=== PATIENT | female | born 2005 | race Two or more races ===

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

== ENCOUNTER 2023-12-29 01:33 | Emergency (ER) | payer MEDICAID, SELFPAY ==
[2023-12-29 01:36] VITALS: BP 111/67; PULSE 70; RESP 16; TEMP 36.6; O2SAT 100
[2023-12-29 02:12] LABS: Basophils Percent Auto 0.4 % (0.2-1.2); Eosinophils Absolute Auto 0.1 K/mm3 (0-0.3); Eosinophils Percent Auto 0.6 % (0-4.4); Hematocrit 35.8 % (37.0-47.0); Hemoglobin 11.8 g/dL (12.0-15.0); Immature Granulocyte Absolute 0.02 K/mm3 (0.00-0.031); Immature Granulocyte Percent A 0.2 % (0-0.5); Lymphocytes Absolute Auto 1.79 K/mm3 (0.9-3.2); Lymphocytes Percent Auto 19.3 % (18.3-44.2); Mean Corpuscular Hemoglobin 27.1 pg (26-34); Mean Corpuscular Volume 82.3 fl (80-100); Mean Platelet Volume 9.3 fl (7.4-10.4); Monocytes Absolute Auto 0.5 K/mm3 (0.1-0.6); Monocytes Percent Auto 4.9 % (2.6-8.5); Neutrophils Absolute Auto 6.9 K/mm3 (1.3-6.7); Neutrophils Percent Auto 74.6 % (45.5-73.1); Platelet Count Result 344 k/mm3 (150-375); Red Blood Count 4.35 M/mm3 (4.2-5.4); Red Cell Distribution Width 13.2 % (11.5-14.5); White Blood Count 9.3 K/mm3 (4.5-10.0)
[2023-12-29 02:22] LABS: Alanine Aminotransferase 16 U/L (6-35); Albumin Level 4.1 g/dL (3.5-5.1); Alkaline Phosphatase 62 U/L (38-126); Anion Gap 6 mmol/L (4-12); Aspartate Amino Transferase 24 U/L (14-36); Bilirubin,Total 0.3 mg/dL (0.2-1.3); Blood Urea Nitrogen 7 mg/dL (7-17); Calcium 9.1 mg/dL (8.4-10.2); Carbon Dioxide 24 mmol/L (22-30); Chloride 109 mmol/L (98-107); Estimated CRCL calculation 111 ml/min; Estimated Glomerular Filt Rate > 60; Glucose 91 mg/dL (65-110); Potassium 4.1 mmol/L (3.4-5.0); Sodium 139 mmol/L (137-145)
--- NOTE | 2023-12-29 02:44 | ED.PREGNANCY ---
HPI - General Chief complaint: Vaginal Bleeding Stated complaint: 4-5 weeks preg, vag bleeding Time Seen by Provider: 12/29/23 01:35 History of Present Illness HPI Narrative: Patient who is at 5 weeks confirmed IUP on ultrasound presenting with vaginal bleeding, she had intermittent spotting earlier during have resolved, then today had a small amount of bleeding with a small clot, which has also now resolved. No abdominal or pelvic pain. No discharge or dysuria Related Data Allergies Allergy/AdvReac Type Severity Reaction Status Date / Time No Known Allergies Allergy Mild Unverified 12/29/23 01:39 Review of Systems Review of Systems: All systems reviewed & are unremarkable except as noted in HPI and below PMFSH Past Medical History Medical History (Updated 12/29/23 @ 02:46 by Aida Walker MD) Chronic otitis media Surgical History Surgical History (Updated 04/22/21 @ 22:14 by Veronica Cody NP) No history of previous surgery Family History Family History (Updated 04/22/21 @ 22:15 by Veronica Cody NP) Other No significant family history Social History Social History (Updated 04/22/21 @ 22:11 by Veronica Cody NP) Smoking status: Never smoker Alcohol intake: never Substance use: never Living arrangements: with family Gender identity (if verbalized by the patient): Female Exam Narrative: EXAMINATION OF ORGAN SYSTEMS/BODY AREAS: Constitutional: Vital signs per nursing GENERAL:[No acute distress, non-toxic appearing.] HEAD: Normal with no signs of head trauma. EYES: EOMI, conjunctiva normal ENT: Hearing grossly intact LUNGS: Nonlabored breathing. 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 Closed cervix; no significant blood in vault or significant discharge. EXT: Normal range of motion SKIN: [No rashes or lesions.] NEURO: [Alert and oriented x 3. No gross focal sensory or strength deficits.] PSYCH: Normal affect Course Vital Signs Vital signs: Vital Signs Temperature 98 F 12/29/23 01:36 Pulse Rate 70 12/29/23 01:36 Respiratory Rate 16 12/29/23 01:36 Blood Pressure 111/67 12/29/23 01:36 Pulse Oximetry 100 12/29/23 01:36 Oxygen Delivery Room Air 12/29/23 01:36 Temperature 98 F 12/29/23 01:36 Pulse Rate 70 12/29/23 01:36 Respiratory Rate 16 12/29/23 01:36 Blood Pressure 111/67 12/29/23 01:36 Pulse Oximetry 100 12/29/23 01:36 Oxygen Delivery Room Air 12/29/23 01:36 MDM - OB/Uterine Contractions MDM Narrative Medical decision making narrative: Patient presents here vaginal bleeding/spotting in 1st trimester. She is otherwise well-appearing here, no abdominal pain and no tenderness on exam here, no significant blood in vault. She had has confirmed IUP still have low concern for ectopic. I suspect threatened miscarriage. Tendon strain obtained, basic blood work within acceptable limits, beta quant is 14,000. Information given to patient as well as the information to follow up OBGYN in the next 2 days for repeat beta quant, with return precautions. At time of discharge she is very well-appearing, ambulating normally. Lab Data 12/29/23 02:07 12/29/23 02:07 Labs: Lab Results 12/29/23 Range/Units 02:07 WBC 9.3 (4.5-10.0) K/mm3 RBC 4.35 (4.2-5.4) M/mm3 Hgb 11.8 L (12.0-15.0) g/dL Hct 35.8 L (37.0-47.0) % MCV 82.3 (80-100) fl MCH 27.1 (26-34) pg MCHC 33.0 (32-36) g/dl RDW 13.2 (11.5-14.5) % Plt Count 344 (150-375) k/mm3 MPV 9.3 (7.4-10.4) fl Immature Gran % (Auto) 0.2 (0-0.5) % Neut % (Auto) 74.6 H (45.5-73.1) % Lymph % (Auto) 19.3 (18.3-44.2) % [place] % (Auto) 4.9 (2.6-8.5) % Eos % (Auto) 0.6 (0-4.4) % Baso % (Auto) 0.4 (0.2-1.2) % Lymph # (Auto) 1.79 (0.9-3.2) K/mm3 [place] # (Auto) 0.5 (0.1-0.6) K/mm3 Eos # (Auto) 0.1 (0-0.3) K/mm3 Bas
== END 2023-12-29 03:05 | disposition home or self-care (01) ==
PROVIDERS: Emergency Provider Emergency Medicine
DX: O20.0 Threatened abortion (principal); Z3A.01 Less than 8 weeks gestation of pregnancy
CPT/HCPCS: 36415; 80053; 81025; 84702; 85025; 86850; 86900; 86901; 99284

== ENCOUNTER 2024-01-04 20:36 | Emergency (ER) | payer MEDICAID, SELFPAY ==
[2024-01-04 20:41] VITALS: BP 125/68; PULSE 78; RESP 18; TEMP 37.2; O2SAT 100
[2024-01-04] MEDS: SODIUM CHLORIDE 0.9% IV 1,000 ML 999 ML IV CONT (21:57)
[2024-01-04 22:00] LABS: Basophils Percent Auto 0.4 % (0.2-1.2); Eosinophils Absolute Auto 0.2 K/mm3 (0-0.3); Eosinophils Percent Auto 2.4 % (0-4.4); Hematocrit 39.6 % (37.0-47.0); Immature Granulocyte Absolute 0.03 K/mm3 (0.00-0.031); Immature Granulocyte Percent A 0.3 % (0-0.5); Lymphocytes Absolute Auto 2.06 K/mm3 (0.9-3.2); Lymphocytes Percent Auto 20.3 % (18.3-44.2); Mean Corpuscular HGB Conc 32.8 g/dl (32-36); Mean Corpuscular Hemoglobin 27.1 pg (26-34); Mean Corpuscular Volume 82.7 fl (80-100); Mean Platelet Volume 9.6 fl (7.4-10.4); Monocytes Absolute Auto 0.6 K/mm3 (0.1-0.6); Neutrophils Absolute Auto 7.2 K/mm3 (1.3-6.7); Neutrophils Percent Auto 70.6 % (45.5-73.1); Platelet Count Result 359 k/mm3 (150-375); Red Blood Count 4.79 M/mm3 (4.2-5.4); Red Cell Distribution Width 13.4 % (11.5-14.5); White Blood Count 10.1 K/mm3 (4.5-10.0)
[2024-01-04 22:10] LABS: Alanine Aminotransferase 20 U/L (6-35); Albumin Level 4.8 g/dL (3.5-5.1); Alkaline Phosphatase 73 U/L (38-126); Anion Gap 10 mmol/L (4-12); Aspartate Amino Transferase 25 U/L (14-36); Bilirubin,Total 0.4 mg/dL (0.2-1.3); Blood Urea Nitrogen 7 mg/dL (7-17); Calcium 9.5 mg/dL (8.4-10.2); Carbon Dioxide 21 mmol/L (22-30); Chloride 111 mmol/L (98-107); Estimated CRCL calculation 128 ml/min; Estimated Glomerular Filt Rate > 60; Glucose 84 mg/dL (65-110); Potassium 3.9 mmol/L (3.4-5.0); Sodium 142 mmol/L (137-145)
--- NOTE | 2024-01-04 22:13 | PC.NURSE ---
edp dr. sandhu performed bedside ultrasound and noted gestational sac. rn relief charge made aware.
--- NOTE | 2024-01-04 22:39 | PC.NURSE ---
Pt passed one large clot at this time. per edp dr. sandhu, blood clot not sent down to lab for further evaluation.
[2024-01-04 22:40] VITALS: BP 124/76; PULSE 86; RESP 12; O2SAT 100
--- NOTE | 2024-01-04 22:54 | ED.GENADULT ---
HPI - General Adult General Chief complaint: Vaginal Bleeding Stated complaint: vaginal bleeding Time Seen by Provider: 01/04/24 21:15 History of Present Illness HPI narrative: patient is a 18-year-old female who presents emergency department with chief complaint of possible miscarriage patient reports that she has been seen by OBGYN and was scheduled for an ultrasound on the to evaluate if she has had a change the patient reports that she has had some spotting and today she went through 3 [employer] liners patient reports that she has had some moderately heavy blood and clots the patient reports she has some cramping in her back Related Data Home Medications Medication Instructions Recorded Confirmed vits no.126-ferrous fum tablet PO 01/01/24 01/01/24 28 mg iron-folic acid 800 mcg tablet (Classic ) Allergies Allergy/AdvReac Type Severity Reaction Status Date / Time No Known Allergies Allergy Mild Verified 01/01/24 15:15 Review of Systems Review of Systems: A 10 system review of systems was completed on the patient and is negative except for what is stated in the HPI. Nursing and ancillary documentation was reviewed. COUNTS INCLUDE 234 BEDS AT THE [facility] Past Medical History Medical History Chronic otitis media Threatened Surgical History Surgical History No history of previous surgery Family History Family History Other No significant family history Social History Social History Smoking status: Never smoker Second hand tobacco smoke exposure: No Alcohol intake: never Substance use: never Substance use type: does not use Do You Feel Safe in your Home?: Yes Lack of Transportation: No Lack of Food: Often True Current Housing: I Have Housing Concerned About Future Housing: YES Difficulty Paying Gas/Electric Bills: YES Difficulty Paying for Meds: No Currently Unemployed: No Education: High School Diploma/GED Difficulty w/ Childcare or Family Care: No Living arrangements: with family Additional living arrangements comments: lives with boyfriend and mother 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 HEAD: Normocephalic, atraumatic. EYES: PERRLA and EOMI. ENT: Nares clear, no rhinorrhea or epistaxis. Mucous membranes moist. NECK: Supple. CHEST: Clear to auscultation. No respiratory distress. HEART: Regular rate and rhythm. No murmur heard. Normal peripheral pulses. ABDOMEN: Soft, nontender, nondistended, normal active bowel sounds. : Pelvic exam was performed with public health administrator there were moderate amount of clots in the vaginal vault were cleared using Bovie swabs. Cervix was closed EXTREMITIES: Normal range of motion. No edema. SKIN: Warm, dry, no rash. NEURO: No focal deficits. Alert and oriented x3. PSYCH: Normal mood and affect. Course Vital Signs Vital signs: Vital Signs Temperature 37.2 C 01/04/24 20:41 Pulse Rate 78 01/04/24 20:41 Respiratory Rate 18 01/04/24 20:41 Blood Pressure 125/68 01/04/24 20:41 Pulse Oximetry 100 01/04/24 20:41 Oxygen Delivery Room Air 01/04/24 20:41 Temperature 37.2 C 01/04/24 20:41 Pulse Rate 86 01/04/24 22:40 Respiratory Rate 12 01/04/24 22:40 Blood Pressure 124/76 01/04/24 22:40 Pulse Oximetry 100 01/04/24 22:40 Oxygen Delivery Room Air 01/04/24 20:41 Medical Decision Making [facility] [place] Narrative Medical decision making narrative: differential diagnosis includes
[2024-01-05 00:02] LABS: Bacteria Urine None Seen /hpf; Need Manual Microscopic Reviewed; Non Pathogenic Casts 0-2; RBC Urine >100 /hpf (0-2); Squamous Epithelial Cell Urine None Seen /hpf (Few); WBC Urine 0-5 /hpf (0-3)
[2024-01-05 00:03] LABS: Appearance Urine Cloudy (Clear); Bilirubin Urine Negative (Negative); Blood Urine 3+ (Negative); Color Urine Red (Yellow); Glucose Urine UA Negative (Negative); Ketones Urine Negative (Negative); Leukocyte Esterase Ur Trace LEU/UL (Negative); Nitrate Urine Negative (Negative); Protein Urine 1+ mg/dL (Negative); Specific Grav Ur 1.013 (1.001-1.035); pH Urine 6.5 (5.0-9.0)
[2024-01-05 00:05] LABS: Add Urine Microscopic? YES
[2024-01-05] MEDS: ACETAMINOPHEN 500 MG TABLET 1000 MG PO (00:30)
== END 2024-01-05 00:36 | disposition home or self-care (01) ==
PROVIDERS: Emergency Provider Emergency Medicine
DX: O20.0 Threatened abortion (principal); Z3A.00 Weeks of gestation of pregnancy not specified
CPT/HCPCS: 36415; 80053; 81001; 84702; 85025; 96360; 96361; 99283; A9270; J7030

== ENCOUNTER 2024-01-08 14:27 | Outpatient (CLI) | payer MEDICAID, SELFPAY ==
--- NOTE | ~2024-01-08 | US_ITS ---
EXAMINATION: US OB transvaginal DATE: 01/08/2024 15:06 INDICATION: Vaginal bleeding TECHNIQUE: Real-time transvaginal obstetric ultrasound. FINDINGS: No prior studies for comparison. The uterus measures 7.4 x 5.2 x 4.9 cm. There appears to be a gestational sac with a pole in th e cervix. No heart motions detected. No visible yolk sac. Ovaries are within normal limits. No free fluid in the pelvis. IMPRESSION: 1. Small gestational sac with pole in the cervix, suspicious for incomplete . No heart motions detected. Recommend follow-up with serial quantitative beta-hCG levels and ultrasound a s clinically indicated. Reviewed, dictated and finalized at location B. IMPRESSION: 1. Small gestational sac with pole in the cervix, suspicious for incomple te . No heart motions detected. Recommend follow-up with serial q uantitative beta-hCG levels and ultrasound as clinically indicated.
== END 2024-01-08 14:28 ==
LOC: MICIMG 14:28
PROVIDERS: PCP Nurse Practitioner; Visit Provider Nurse Practitioner
DX: O20.0 Threatened abortion (principal); Z3A.00 Weeks of gestation of pregnancy not specified
CPT/HCPCS: 76817

== ENCOUNTER 2025-01-17 16:51 | Emergency (ER) | payer SELFPAY ==
[2025-01-17] VITALS (7 sets, daily range): BP systolic 101–114; BP diastolic 71–87; PULSE 77–95; RESP 20; TEMP 36.3–36.6; O2SAT 99–100
--- OUTSIDE RECORDS SUMMARY | 2025-01-17 16:53 | XMS_ITS | CONTINUITY OF CARE DOCUMENT ---
Author Name niraj healy Address Unknown Organization [facility] Address [address] [place] [address] Phone [phone] Care Team Providers Care Ticket Dispenser Changer Name Role Phone Vinayak Khan MD Unavailable [phone] Vinayak Khan MD Unavailable INSURANCE PROVIDERS Payer name Policy type / Coverage type [place] [employer] party ID [id number] MEDICAID (2) Medicaid [id number]
--- OUTSIDE RECORDS SUMMARY | 2025-01-17 16:53 | XMS_ITS | Data Portability ---
Author Organization [facility] , [facility] Address [address] [place] [address] Care Team Providers Care Marketing Traffic Manager Name Role Phone [facility] Machine Engraver Assessment No assessment recorded. Plan of Treatment Reminders Order Date Submit Date Provider Last Modified By Organization Details Last Modified Time Details Appointments None recorded. Lab test, urine 2023 [id number] [facility], [address] [place], [address], 15:10:29 Referral None recorded. Procedures None recorded. Surgeries None recorded. Imaging US, transvagina l 2023 024 STARR Not available 05:23:37 Medication Orders None recorded. Patient TargetsNo targets recorded. Patient Instructions Encounter Date Encounter Id Patient Instructions Last Modified By Organization Details Last Modified Time 12/27/2023 [id number] Emergency Symptoms During the First Trimester Any of these symptoms should be evaluated immediately Don't wait for your visit to talk about it. Call the office or go to the hospital right away if you experience: - Severe pain or intense cramps low in the abdomen - Severe bleeding, with or without pain - Discharge from the vagina that contains tissue - Dizziness or fainting - A fever of more than 100.4 or more degrees Fahrenheit and/or chills [id number] Not available 12/27/2023 15:16:43 Reason for Referral None Reported. Results Created Date Observation Date Name Description Value Unit Range Abnormal Flag Note LastModifiedBy Organization Detail LastModifiedTime 12/27/19 24 12/27/2023 pregn rachel test, urine HCG positi ve Not Available [facility] [address] [facility] [place], [address], 12/27/2023 10:04:51 12/29/19 24 12/27/2023 US, trans vagin al No observ ation record ed. [place] [address], [place], [address], 12/29/2023 11:14:14 Result Notes None recorded. Medical Equipment None Reported. Allergies No known drug allergies Medications Name Sig Start Date Stop Date Status Note LastModified by Organization Details LastModified Time metronidazol e 500 mg tablet TAKE 1 TABLET BY MOUTH TWICE A DAY 12/26 completed Not Available Not Available Not Available amoxicillin 875 mg-potassium clavulanate 125 mg tablet TAKE 1 TABLET BY MOUTH TWICE DAILY 12/26 completed Not Available Not Available Not Available neomycin-naman ymyxin-hydro yobani 3.5 mg-10,000 unit/mL-1 % ear drops,susp INSTILL 1 DROP INTO THE LEFT EAR EVERY 3 HOURS WHILE AWAKE 12/26 completed Not Available Not Available Not Available Vitals Date Recorded Body mass index (BMI) Body mass index (BMI) [Percentile] Per age and sex Body height Provider Name and Address Organization Details Last Updated DateTime 12/27/2023 24.6 kg/m2 75 % 172.72 cm Craig Orona [employer] [facility] 12/27/2023 15:01:00 Date Recorded Body weight Body temperature Systolic blood pressure Diastolic blood pressure Provider Name and Address Organization Details Last Updated DateTime 12/27/2023 15589.25 g 98.4 [degF] 130 mm[Hg] 62 mm[Hg] Mckenna Weber [employer] [facility] 14:42:17 Social History Question Answer Notes LastModified by Organizat ion Details LastModified Time Tobacco Smoking Status Never Smoker Mckenna torres [employer] [facility] 12/27/2023 14:45:18 If You Are , What Was Your Level Of Alcohol Consumption Prior To ? Occasional Information not available 12/27/2023 Are You Blind Or Do You Have Difficulty Seeing? No Information not available 12/27/2023 Are You Deaf Or Do You Have Serious Difficulty Hearing? No Information not available 12/27/2023 What Type Of Diet Are You Following? REGULAR Information not available 12/27/2023 How Many Children Do You Have? 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 Unknown Information not available 12/27/2023 Are You Sexually Active? Yes Information not available 12/27/2023 Sex: Unknown Functional Status Question Answer Note LastModified by Organizat ion Details LastModified Time Do you use any illicit or recreational drugs? No Information not available 12/27/2023 Are you currently employed? Yes Information not available 12/27/2023 What is your exercise level? Occasional Information not available 12/27/2023 Mental Status None recorded. Family History Nothing Reported. Medical History Condition Response ADD/ADHD Y Gynecological History Statement/Question Response Flow Heavy Date of LMP 10/05/2023 Frequency of Cycle (Q days) 31 Duration of Flow (days) 7 Current Control Method Age at Menarche Not sure Obstetrics History GPAL:G 0 P 0 0 1 0 Type Value Spontaneous 1 Past Encounters Encounter ID Performer Location Encounter Start Date Encounter Closed Date Diagnosis/Indication Diagnosis SNOMED-CT Code Diagnosis ICD10 Code Diagnosis Note [id number] Giulia Alcocer CNM [facility] [address] [place] [address] 12/27/2023 14:31:23 12/27/2023 15:29:03 detection examination 60149032 Z32.00 US findings discussed w/pt and SO. GS AND YS ONLY repeat for viability in 14 days.SAB precaution s discussed Health Concerns Section Related Observation LastModified by Organization Detai ls LastModified Time None Recorded Concern Status LastModified by Organization Details LastModified Time None Recorded Advance Directives Directive None Recorded Payers Insurance Date Sequence Insurance Name Policy Number Policy Arana Covered Member ID Arana Member ID Guarantor Name 01/07/2024 1 [place] [facility] [employer] Janak Bautista [id number] Janak Bautista Notes Date Note Type Note Provider Name and Address Organization Details Recorded Time 12/27/2023 text/html Janak is here for confirmation with u/spatient LMP 4Patient states she is taking prenantal vitaminspatient has no concerns at this time Giulia Alcocer, CN [address], [place], [address], [facility] 12/27/2023 15:17:25 OBGyn Episode Ob Episode Information Episode Created Date Number of Fetuses Patient Bloodtype Patient rh Status Prepregnancy Weight lbs Domestic Partner Domestic Partner Phone Father Name Geological Sample Tester Status 12/27/19 24 1 CLOSED Fetus Data First Name Last Name Admitted to NICU Weight (g) Sex Living Outcome Pediatric Complications Fetus ID Race Codes Race Delivery Type , Spontane ous [id number] Gabe Calculation Initial Gabe Date Initial Exam Date Initial Exam Provider Initial Ultrasound Date Last Menstrual Period Date Ultra Sound Weeks Gestation 0 Eighteen To Twenty Week Gabe Update Ultra Sound Date Fundal Height At Umbil Quickening Date Ultra Sound Latest Weeks Gestation Final Gabe Confirmed By Final Gabe Confirmed Date Final Gabe Date Ultra Sound Latest Days Gestation 0 0 Menstrual History Last Menstrual Date Menses Monthly On Bcp Conception Prior Menses Frequency Hcg Plus Date Menarche Onset Age Delivery Information Delivery Date Delivery Type Labor Anesthesia Weeks Gestation Incision Type Labor Labor Length Hrs Delivered By Post Complications Tubal Sterilization Discharge Date Comments 9 Discharge Information Feeding Method Contraceptive Method Maternal HG B and HCT Levels
--- OUTSIDE RECORDS SUMMARY | 2025-01-17 16:53 | XMS_ITS | Data Portability ---
Author Organization [facility] Address [address] [place] [address] Assessment No assessment recorded. Plan of Treatment Reminders Order Date Submit Date Provider Last Modified By Organization Details Last Modified Time Details Appointments None recorded. Lab HIV 1 + 2, meaningful use set [address] [facility], [address] [place] [address], [facility] [address], [place], [address], 5 09:11:41 RPR (rapid plasma reagin), serum [address] [facility], [address] [place] [address], [address], [place], [address], 5 09:11:40 HBsAg (hepatitis B surface Ag), EIA, serum [address] [facility], [address] [place] [address], [address], [place], [address], 5 09:11:39 Hepatitis C IgG Ab, qual, serum [address] [facility], [address] [place] [address], [address], [place], [address], 5 09:11:38 vaginal pathogens panel, ROZ+probe, vaginal fluid [address] [facility], [address] [place] [address], [address], [place], [address], 06:14:39 Referral None recorded. Procedures None recorded. Surgeries None recorded. Imaging None recorded. Medication Orders None recorded. Patient TargetsNo targets recorded. Patient Instructions Encounter Date Encounter Id Patient Instructions Last Modified By Organization Details Last Modified Time 12/26/2024 [id number] I was present in the clinic to discuss this patient at the time of the visit. I agree with the documented assessment and plan MD tia Laboy Not available 12/26/2024 09:51:36 Reason for Referral None Reported. Results Created Date Observation Date Name Description Value Unit Range Abnormal Flag Note LastModifiedBy Organization Detail LastModifiedTime 12/27/1912/27/2024 INTER PRETA TION: interpretati on: Commen t Not infec mercy with HCV unles s early or acute infec tion is suspe cted (whic h may be delay ed in an immun ocomp romis ed indiv idual ), or other evide nce exist s to indic ate HCV infec tion. Not Available [facility] ([facility]) [address] [facility], [place], [address], 12/27/2024 09:11:37 12/27/1912/27/2024 HCV ANTIB MARQUEZ RFX TO QUANT PCR HCV Ab NON REACTI VE nonrea ctive Not Available [facility] ([facility]) [address] [place], [address], 12/27/2024 09:11:38 12/27/1912/27/2024 HBSAG SCREE N HBsAg screen NEGATI VE negati ve Not Available [facility] ([facility]) [address] [place], [address], 12/27/2024 09:11:39 12/27/1912/27/2024 RPR, RFX QN RPR/C ONFIR M TP RPR NON REACTI VE nonrea ctive Not Available [facility] ([facility]) [address] [place], [address], 12/27/2024 09:11:40 12/27/1912/27/2024 HIV AB/P2 4 AG WITH REFLE X HIV Ab/P24 Ag screen NON REACTI VE nonrea ctive HIV-1 /HIV- 2 antib odies and HIV-1 p24 antig en were NOT detec mercy. There is no labor atory evide nce of HIV infec tion. HIV Negat sky Not Available [facility] ([facility]) [address] [facility], [place], [address], 12/27/2024 09:11:41 12/27/1912/28/2024 NUSWA B VAGIN ITIS PLUS (VG+) atopobium vaginae HIGH - 2 score abnormal Not Available [facility] ([facility]) [address] [facility], [place], [address], 12/31/2024 06:14:39 12/27/1912/28/2024 NUSWA B VAGIN ITIS PLUS (VG+) bvab 2 HIGH - 2 score abnormal Not Available [facility] ([facility]) [address] [facility], [place], [address], 12/31/2024 06:14:39 12/27/1912/28/2024 NUSWA B VAGIN ITIS PLUS (VG+) megasphaera 1 HIGH - 2 score abnormal Calcu late total score by shilo joseph the 3 indiv idual bacte rial vagin osis (BV) marke r score s toget her. Total score is inter prete d as follo ws: Total score 0-1: Indic ates the absen ce of BV. Total score 2: Indet ermin ate for BV. Addit ional clini [place]ville data shoul d be evalu ated to estab mayte a diagn osis. Total score 3-6: Indic ates the prese nce of BV. Not Available [facility] ([facility]) [address] [facility], [place], [address], 12/31/2024 06:14:39 12/27/19 25 12/28/2024 NUA B VAGIN ITIS PLUS (VG+) hua albicans, ROZ NEGATI VE negati ve Not Available [facility] ([facility]) [address] [place], [address], 12/31/2024 06:14:39 12/27/1912/28/2024 NUSWA B VAGIN ITIS PLUS (VG+) hua glabrata, ROZ NEGATI VE negati ve Not Available [facility] ([facility]) [address] [place], [address], 12/31/2024 06:14:39 12/27/1912/30/2024 NUA B VAGIN ITIS PLUS (VG+) trich vag by ROZ NEGATI VE negati ve Not Available [facility] ([facility]) [address] [place], [address], 12/31/2024 06:14:39 12/27/1912/30/2024 NUA B VAGIN ITIS PLUS (VG+) chlamydia trachomatis, ROZ NEGATI VE negati ve Not Available [facility] ([facility]) [address] [place], [address], 12/31/2024 06:14:39 12/27/1912/30/2024 NUA B VAGIN ITIS PLUS (VG+) neisseria gonorrhoeae, ROZ NEGATI VE negati ve Not Available [facility] ([facility]) [address] [place], [address], 12/31/2024 06:14:39 Result Notes None recorded. Problems Name Problem SNOMED Code Status Onset Date Resolution Date Notes Provider Name and Address Organization Details Recorded Time Bacterial vaginosis 720327591 Active 025 Vernon Brady MD Attn: Jemal g,[address] [facility], [place], [address] , [facility] 15:23:42 Problem Notes None recorded. Medical Equipment None Reported. Allergies No known drug allergies Medications Name Sig Start Date Stop Date Status Note LastModified by Organization Details LastModified Time metronidazole 500 mg tablet Take 1 tablet twice a day by oral route for 7 days. 01/14 completed Not Available Not Available Not Available Vitals Date Recorded Body height Body mass index (BMI) Body weight Body temperature Respiratory rate Oxygen saturation Oxygen saturation in Arterial blood by Pulse oximetry Heart rate Systolic blood pressure Diastolic blood pressure Provider Name and Address Organization Details Last Updated DateTime 172.72 cm 21.7 kg/m2 22136.7 1 g 98.2 [degF] 16 /min 99 % 99 % 82 /min 125 mm[Hg] 85 mm[Hg] Ting Gallardo MA [facility] 09:30:53 Social History Question Answer Notes LastModified by [employer] Details LastModified Time Tobacco Smoking Status Never Smoker [facility] 12/26/2024 09:29:24 What Was The Date Of Your Most Recent Tobacco Screening? 12/26/2024 Information not available 12/26/2024 What Is Your Relationship Status? Single Information not available 12/26/2024 Are You Sexually Active? Yes Information not available 12/26/2024 Has Tobacco Cessation Counseling Been Provided? No Information not available 12/26/2024 Sex: Female Functional Status Question Answer Note LastModified by [employer] Details LastModified Time Do you use any illicit or recreational drugs? No Information not available 12/26/2024 Do you or have you ever used any other forms of tobacco or nicotine? Yes Information not available 12/26/2024 What is your level of alcohol consumption? None Information not available 12/26/2024 Do you or have you ever used e-cigarettes or vape? Current user of electronic cigarettes Information not available 12/26/2024 Mental Status None recorded. Family History Nothing Reported. Medical History No medical history recorded. Gynecological HistoryNo gynecological history recorded. Obstetrics History GPAL:G 0 P 0 0 0 0 Immunizations Vaccine Type Date Status Note Provider Nam e and Address Organization Details Recorded Time Hep B, adolescent or pediatric 3 completed Not Available [facility] 12/26/2024 09:15:42 Hep B, adolescent or pediatric 3 completed Not Available [facility] 12/26/2024 09:15:42 DTaP 3 completed Not Available [facility] 12/26/2024 09:15:42 IPV 3 completed Not Available [facility] 12/26/2024 09:15:42 pneumococcal conjugate PCV 7 3 completed Not Available [facility] 12/26/2024 09:15:42 Hib, unspecified formulation 3 completed Not Available [facility] 12/26/2024 09:15:42 DTaP 4 completed Not Available [facility] 12/26/2024 09:15:42 IPV 4 completed Not Available [facility] 12/26/2024 09:15:42 pneumococcal conjugate PCV 7 4 completed Not Available [facility] 12/26/2024 09:15:42 Hib, unspecified formulation 4 completed Not Available [facility] 12/26/2024 09:15:42 Hib, unspecified formulation 4 completed Not Available [facility] 12/26/2024 09:15:42 DTaP 4 completed Not Available [facility] 12/26/2024 09:15:42 Hep B, adolescent or pediatric 4 completed Not Available [facility] 12/26/2024 09:15:42 varicella 4 completed Not Available [facility] 12/26/2024 09:15:42 pneumococcal conjugate PCV 7 4 completed Not Available [facility] 12/26/2024 09:15:42 MMR 4 completed Not Available [facility] 12/26/2024 09:15:42 Hib, unspecified formulation 5 completed Not Available [facility] 12/26/2024 09:15:42 DTaP 5 completed Not Available [facility] 12/26/2024 09:15:42 IPV 5 completed Not Available [facility] 12/26/2024 09:15:42 MMR 8 completed Not Available [facility] 12/26/2024 09:15:42 IPV 8 completed Not Available [facility] 12/26/2024 09:15:42 varicella 8 completed Not Available [facility] 12/26/2024 09:15:42 DTaP 8 completed Not Available [facility] 12/26/2024 09:15:42 Hep A, pediatric, unspecified formulation 1 completed Not Available [facility] 12/26/2024 09:15:42 Influenza, live, trivalent, intranasal 1 completed Not Available [facility] 12/26/2024 09:15:42 Influenza, split virus, quadrivalent, PF 4 completed Not Available [facility] 12/26/2024 09:15:42 Hep A, ped/adol, 2 dose 4 completed Not Available [facility] 12/26/2024 09:15:42 Tdap 4 completed Not Available [facility] 12/26/2024 09:15:42 meningococcal MCV4P 5 completed Not Available [facility] 12/26/2024 09:15:42 HPV9 5 completed Not Available [facility] 12/26/2024 09:15:42 Influenza, live, quadrivalent, intranasal 5 completed Not Available [facility] 12/26/2024 09:15:42 HPV9 5 completed Not Available [facility] 12/26/2024 09:15:42 HPV9 6 completed Not Available [facility] 12/26/2024 09:15:42 Meningococcal MCV4O 9 completed Not Available [facility] 12/26/2024 09:15:42 meningococcal B, OMV 9 completed Not Available [facility] 12/26/2024 09:15:42 meningococcal B, OMV 1 completed Not Available [facility] 12/26/2024 09:15:42 Past Encounters Encounter ID Performer Location Encounter Start Date Encounter Closed Date Diagnosis/Indication Diagnosis SNOMED-CT Code Diagnosis ICD10 Code Diagnosis Note [id number] MD Paul Andino 14 IM [address] [facility] [address] [place] [address] 12/26/2024 09:12:15 12/30/2024 11:33:04 Exposure to Treponema pallidum 555540209 Z20.2 exposure 5 days ago to syphillisa symptomati cwill test for all STIscannot empiricall y treat given no penicillin in office; referred to [facility] for penicillin injection Health Concerns Section Related Observation LastModified by Organization Detai ls LastModified Time None Recorded Concern Status LastModified by Organization Details LastModified Time None Recorded Advance Directives Directive None Recorded Payers Insurance Date Sequence Insurance Name Policy Number Policy Arana Covered Member ID Arana Member ID Guarantor Name 12/26/2024 1 [facility] ON OR AFTER 02/03/21 (MEDICAID REPLACEMENT - HMO) Janak Bautista [id number] Janak Bautista 12/26/2024 SLIDING FEE SCHEDULE - DISCOUNT Janak Bautista 12/26/2024 1 *SELF PAY* Cr ana laura Bautista Notes Date Note Type Note Provider Name and Address Organization Details Recorded Time 12/26/2024 text/html 19 yo female presenting for STI walk in She was told 3 days ago that she was exposed to syphillis from a sexual 5 days agoShe had unprotected sex on that ocassiondenies dysuria, frequency, urgency, or abnormal bleedingshe notes inc vaginal discharge without change in colour or smelldenies lumps, bumps, or lesions Carole Nails MD Attn: [address] [place], [address], [facility] 12/26/2024 11:52:36 OBGyn Episode No OBEpisode recorded.
--- OUTSIDE RECORDS SUMMARY | 2025-01-17 17:12 | XMS_ITS | CONTINUITY OF CARE DOCUMENT ---
Author Name niraj healy Address Unknown Organization [facility] Address [address] [place] [address] Phone [phone] Care Team Providers Care Beef Breaker Name Role Phone Vinayak Khan MD Unavailable Vinayak Khan MD Unavailable INSURANCE PROVIDERS Payer name Policy type / Coverage type [place] [employer] [place] [id number] MEDICAID (2) Medicaid [id number]
[2025-01-17 17:27] LABS: Basophils Absolute Auto 0.1 K/mm3 (0.0-0.1); Basophils Percent Auto 0.5 % (0.2-1.2); Eosinophils Percent Auto 0.3 % (0-4.4); Hematocrit 39.9 % (37.0-47.0); Hemoglobin 13.1 g/dL (12.0-15.0); Immature Granulocyte Absolute 0.03 K/mm3 (0.00-0.031); Immature Granulocyte Percent A 0.3 % (0-0.5); Lymphocytes Absolute Auto 2.01 K/mm3 (0.9-3.2); Mean Corpuscular HGB Conc 32.8 g/dl (32-36); Mean Corpuscular Hemoglobin 27.4 pg (26-34); Mean Corpuscular Volume 83.5 fl (80-100); Mean Platelet Volume 9.4 fl (7.4-10.4); Monocytes Absolute Auto 0.4 K/mm3 (0.1-0.6); Monocytes Percent Auto 4.5 % (2.6-8.5); Neutrophils Percent Auto 73.4 % (45.5-73.1); Platelet Count Result 374 k/mm3 (150-375); Red Blood Count 4.78 M/mm3 (4.2-5.4); Red Cell Distribution Width 13.2 % (11.5-14.5); White Blood Count 9.6 K/mm3 (4.5-10.0)
--- NOTE | 2025-01-17 17:33 | ED_ITS ---
HPI - General Chief complaint: Vaginal Bleeding Stated complaint: 5 weeks -vaginal bleeding Time Seen by Provider: 01/17/25 16:53 Source: patient Mode of arrival: ambulatory Limitations: no limitations History of Present Illness HPI Narrative: This is a 19-year-old female that presents to the emergency department for vaginal bleeding in early . Reports her LMP was 12/05/24. Reports she has had spotting for the last week. Bleeding became more heavy since yesterday. She has not had an US yet this . Related Data Home Medications ?Medication ?Instructions ?Recorded ?Confirmed ?Last Taken ?Type vits no.126-ferrous fum tablet PO 01/01/24 01/01/24 Unknown History 28 mg iron-folic acid 800 mcg tablet (Classic ) Allergies Allergy/AdvReac Type Severity Reaction Status Date / Time No Known Allergies Allergy Mild Verified 01/17/25 16:56 Review of Systems 2 Review of Systems: All systems reviewed & are unremarkable except as noted in HPI and below PMFSH Past Medical History Medical History Chronic otitis media Threatened Surgical History Surgical History No history of previous surgery Family History Family History Other No significant family history Social History Social History Smoking status: Never smoker Second hand tobacco smoke exposure: No Alcohol intake: never Substance use: never Substance use type: does not use Do You Feel Safe in your Home?: Yes Lack of Transportation: No Lack of Food: Often True Current Housing: I Have Housing Concerned About Future Housing: YES Difficulty Paying Gas/Electric Bills: YES Difficulty Paying for Meds: No Currently Unemployed: No Education: High School Diploma/GED Difficulty w/ Childcare or Family Care: No Living arrangements: with family Additional living arrangements comments: lives with boyfriend and mother 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 HEAD: Normocephalic, atraumatic. EYES: EOMI. CHEST: Clear to auscultation. No respiratory distress. No wheezes rales or rhonchi HEART: Regular rate and rhythm. No murmur heard. Normal peripheral pulses. ABDOMEN: Soft, nontender, nondistended, normal active bowel sounds. EXTREMITIES: Normal range of motion. No edema. SKIN: Warm, dry, no rash. NEURO: No focal deficits. Alert and oriented x3. PSYCH: Normal mood and affect Course Course Emergency Course: patient updated on her workup and agrees with plan of care Vital Signs Vital signs: Vital Signs Temperature 97.3 F L 01/17/25 16:57 Pulse Rate 89 01/17/25 16:57 Respiratory Rate 20 01/17/25 16:57 Blood Pressure 113/76 01/17/25 16:57 Pulse Oximetry 100 01/17/25 16:57 Oxygen Delivery Room Air 01/17/25 16:57 Temperature 97.3 F L 01/17/25 16:57 Pulse Rate 86 01/17/25 18:00 Respiratory Rate 20 01/17/25 18:00 Blood Pressure 110/87 01/17/25 18:00 Pulse Oximetry 100 01/17/25 18:00 Oxygen Delivery Room Air 01/17/25 16:57 MDM - OB/Uterine Contractions MDM Narrative Medical decision making narrative: Patient presents the emergency department for bleeding in early . She is afebrile and nontoxic appearing. Her vitals are stable. Hemoglobin is normal. Blood type is A positive. Quantitative beta-hCG is 46.5. Will be given order for repeat beta HCG. Instructed continued monitoring with her OB. She was given warnings to return to the ER Differential Diagnosis Differential diagnosis: Likely other (threatened miscarriage, miscarriage) Lab Data Attestation: I reviewed the patient's lab results. 01/17/25 17:15 01/17/25 17:15 Labs: Lab Results 01/17/25 Range/Units 17:15 WBC 9.6 (4.5-10.0) K/mm3 RBC 4.78 (4.2-5.4) M/mm3 Hgb 13.1 (12.0-15.0) g/dL Hct 39.9 (37.0-47.0) % MCV 83.5 (80-100) fl MCH 27.4 (26-34) pg MCHC 32.8 (32-36) g/dl RDW 13.2 (11.5-14.5) % Plt Count 374 (150-375) k/mm3 MPV 9.4 (7.4-10.4) fl Immature Gran % (Auto) 0.3 (0-0.5) % Neut % (Auto) 73.4 H (45.5-73.1) % Lymph % (Auto) 21.0 (18.3-44.2) % Ulster % (Auto) 4.5 (2.6-8.5) % Eos % (Auto) 0.3 (0-4.4) % Baso % (Auto) 0.5 (0.2-1.2) % Lymph # (Auto) 2.01 (0.9-3.2) K/mm3 Ulster # (Auto) 0.4 (0.1-0.6) K/mm3 Eos # (Auto) 0.0 (0-0.3) K/mm3 Baso # (Auto) 0.1 (0.0-0.1) K/mm3 Abs Immat Gran (auto) 0.03 (0.00-0.031) K/mm3 Absolute Neuts (auto) 7.0 H (1.3-6.7) K/mm3 Absolute Nucleated RBC 0.000 (0.0-0.012) K/mm3 Nucleated RBC % 0.0 (0.0-0.2) % PT 13.1 (11.1-14.7) Seconds INR 1.0 APTT 24.8 (22.3-36.8) Seconds Sodium 141 (137-145) mmol/L Potassium 3.8 (3.4-5.0) mmol/L Chloride 108 H (98-107) mmol/L Carbon Dioxide 23 (22-30) mmol/L Anion Gap 10 (4-12) mmol/L BUN 9 (7-17) mg/dL Creatinine 0.67 L (0.7-1.0) mg/dL Estim Creat Clear Calc 115 ml/min Estimated GFR > 60 (59 - ) Glucose 84 (65-110) mg/dL Calcium 9.5 (8.4-10.2) mg/dL Total Bilirubin 0.4 (0.2-1.3) mg/dL AST 28 (14-36) U/L ALT 19 (6-35) U/L Alkaline Phosphatase 68 (38-126) U/L Total Protein 8.3 H (6.3-8.2) g/dL Albumin 4.8 (3.5-5.1) g/dL Beta HCG, Quant 46.50 mIU/ML Blood Type A Positive Antibody Screen Negative Screen Not Reportable Baby's Blood Type Not Reportable Baby's JULIO Not Reportable Doses of RhIg Required 0 Critical Care Time Critical Care Time Critical Care Time: No Discharge Plan Discharge Clinical Impression: Threatened miscarriage Patient Disposition: Home Condition: Stable Instructions: Threatened Miscarriage (ED) Additional Instructions: Return to the ER if you experience fever, chest pain, shortness of breath, abdominal pain with nausea and vomiting, you are unable to keep down liquids or solids, you are soaking through a pad/hour, or any other symptoms that are concerning to you Remain well hydrated. Pelvic rest, no tampons or sex. I have sent an order electronically for you to have your hormone rechecked in 2 days (Sunday) at a lab of your choice Follow up with your OB Patient Language: Rwandan Prescriptions: No Action Classic 28 mg iron- 800 mcg tablet PO Follow-up/Referrals: PHYSICIAN,RELOCATION COMMISSIONER [Primary Care Provider] -
[2025-01-17 17:39] LABS: Alanine Aminotransferase 19 U/L (6-35); Albumin Level 4.8 g/dL (3.5-5.1); Alkaline Phosphatase 68 U/L (38-126); Anion Gap 10 mmol/L (4-12); Aspartate Amino Transferase 28 U/L (14-36); Bilirubin,Total 0.4 mg/dL (0.2-1.3); Blood Urea Nitrogen 9 mg/dL (7-17); Calcium 9.5 mg/dL (8.4-10.2); Carbon Dioxide 23 mmol/L (22-30); Chloride 108 mmol/L (98-107); Estimated CRCL calculation 115 ml/min; Estimated Glomerular Filt Rate > 60; Glucose 84 mg/dL (65-110); Potassium 3.8 mmol/L (3.4-5.0); Sodium 141 mmol/L (137-145); Total Protein 8.3 g/dL (6.3-8.2)
[2025-01-17 17:41] LABS: Prothrombin Time 13.1 Seconds (11.1-14.7)
[2025-01-17 17:42] LABS: Partial Thromboplastin Time 24.8 Seconds (22.3-36.8)
== END 2025-01-17 18:41 | disposition home or self-care (01) ==
PROVIDERS: Emergency Provider Physician Assistant
DX: O20.0 Threatened abortion (principal); Z3A.01 Less than 8 weeks gestation of pregnancy
CPT/HCPCS: 36415; 80053; 84702; 85025; 85461; 85610; 85730; 86850; 86900; 86901; 99284

== ENCOUNTER 2025-01-19 14:26 | Emergency (ER) | payer SELFPAY ==
[2025-01-19 14:32] VITALS: BP 106/76; PULSE 75; RESP 18; TEMP 36.3; O2SAT 100
--- OUTSIDE RECORDS SUMMARY | 2025-01-19 15:34 | XMS_ITS | Data Portability ---
Author Organization [facility] MARGARITOVero [facility] Address [address] [place] [address] Assessment No assessment recorded. Plan of Treatment Reminders Order Date Submit Date Provider Last Modified By Organization Details Last Modified Time Details Appointments None recorded. Lab HIV 1 + 2, meaningful use set 2024 025 [facility], [address] [place] [address], [facility] [address], [place], [address], 5 09:11:41 RPR (rapid plasma reagin), serum 2024 025 [facility], [address] [place] [address], [address], [place], [address], 5 09:11:40 HBsAg (hepatitis B surface Ag), EIA, serum 2024 025 [facility], [address] [place] [address], [address], [place], [address], 5 09:11:39 Hepatitis C IgG Ab, qual, serum 2024 025 [facility], [address] [place] [address], [address], [place], [address], 5 09:11:38 vaginal pathogens panel, ROZ+probe, vaginal fluid 2024 025 [facility], [address] [place] [address], [address], [place], [address], 06:14:39 Referral None recorded. Procedures None recorded. Surgeries None recorded. Imaging None recorded. Medication Orders None recorded. Patient TargetsNo targets recorded. Patient Instructions Encounter Date Encounter Id Patient Instructions Last Modified By Organization Details Last Modified Time 12/26/2024 [id number] I was present in the clinic to [...] ate HCV infec tion. Not Available [facility] ([facility]) [address] [facility], [place], [address], 12/27/2024 09:11:37 12/27/1912/27/2024 HCV ANTIB MARQUEZ RFX TO QUANT PCR HCV Ab NON REACTI VE nonrea ctive Not Available [facility] ([facility]) [address] [place], [address], 12/27/2024 09:11:38 12/27/1912/27/2024 HBSAG SCREE N HBsAg screen NEGATI VE negati ve Not Available [facility] ([facility]) [address] [place], [address], 12/27/2024 09:11:39 12/27/1912/27/2024 RPR, RFX QN RPR/C ONFIR M TP RPR NON REACTI VE nonrea ctive Not Available [facility] ([facility]) [address] [place], [address], 12/27/2024 09:11:40 12/27/1912/27/2024 HIV AB/P2 4 AG WITH REFLE X HIV Ab/P24 Ag screen NON REACTI VE nonrea ctive HIV-1 /HIV- 2 antib odies and HIV-1 p24 antig en were NOT detec mercy. There is no labor atory evide nce of HIV infec tion. HIV Negat sky Not Available [facility] ([facility]) [address] [facility], [place], [address], 12/27/2024 09:11:41 12/27/1912/28/2024 NUSWA B VAGIN ITIS PLUS (VG+) atopobium vaginae HIGH - 2 score abnormal Not Available [facility] ([facility]) [address] [facility], [place], [address], 12/31/2024 06:14:39 12/27/1912/28/2024 NUSWA B VAGIN ITIS PLUS (VG+) bvab 2 HIGH - 2 score abnormal Not Available [facility] ([facility]) [address] [facility], [place], [address], 12/31/2024 06:14:39 12/27/1912/28/2024 NUSWA B VAGIN ITIS [...] prese nce of BV. Not Available [facility] ([facility]) [address] [facility], [place], [address], 12/31/2024 06:14:39 12/27/19 25 12/28/2024 NUA B VAGIN ITIS PLUS (VG+) hua albicans, ROZ NEGATI VE negati ve Not Available [facility] ([facility]) [address] [place], [address], 12/31/2024 06:14:39 12/27/1912/28/2024 NUSWA B VAGIN ITIS PLUS (VG+) hua glabrata, ROZ NEGATI VE negati ve Not Available [facility] ([facility]) [address] [place], [address], 12/31/2024 06:14:39 12/27/1912/30/2024 NUA B VAGIN ITIS PLUS (VG+) trich vag by ROZ NEGATI VE negati ve Not Available [facility] ([facility]) [address] [place], [address], 12/31/2024 06:14:39 12/27/1912/30/2024 NUA B VAGIN ITIS PLUS (VG+) chlamydia trachomatis, ROZ NEGATI VE negati ve Not Available [facility] ([facility]) [address] [place], [address], 12/31/2024 06:14:39 12/27/1912/30/2024 NUA B VAGIN ITIS PLUS (VG+) neisseria gonorrhoeae, ROZ NEGATI VE negati ve Not Available [facility] ([facility]) [address] [place], [address], 12/31/2024 06:14:39 Result Notes None recorded. Problems Name Problem SNOMED Code Status Onset Date Resolution Date Notes Provider Name and Address Organization Details Recorded Time Bacterial vaginosis 684271567 Active 025 Vernon Brady MD Attn: Jemal g,[address] [facility], [place], [address] , [facility] 15:23:42 Problem Notes None recorded. Medical Equipment [...] Last Updated DateTime 172.72 cm 21.7 kg/m2 12951.7 1 g 98.2 [degF] 16 /min 99 % 99 % 82 /min 125 mm[Hg] 85 mm[Hg] Ting Gallardo MA [facility] 09:30:53 Social History Question Answer Notes LastModified by Catmoji Details LastModified Time Tobacco Smoking Status Never Smoker [facility]ardo [facility] 12/26/2024 09:29:24 What Was The Date Of Your Most Recent Tobacco Screening? 12/26/2024 Information not available 12/26/2024 What Is Your Relationship Status? Single Information not available 12/26/2024 Are You Sexually Active? Yes Information not available 12/26/2024 Has Tobacco Cessation Counseling Been Provided? No Information not available 12/26/2024 Sex: Female Functional Status Question Answer Note LastModified by Catmoji Details LastModified Time Do you use any [...] adolescent or pediatric 3 completed Not Available [facility] 12/26/2024 09:15:42 Hep B, adolescent or pediatric 3 completed Not Available [facility] 12/26/2024 09:15:42 DTaP 3 completed Not Available [facility] 12/26/2024 09:15:42 IPV 3 completed Not Available [facility] 12/26/2024 09:15:42 pneumococcal conjugate PCV 7 3 completed Not Available [facility] 12/26/2024 09:15:42 Hib, unspecified formulation 3 completed Not Available [facility] 12/26/2024 09:15:42 DTaP 4 completed Not Available [facility] 12/26/2024 09:15:42 IPV 4 completed Not Available [facility] 12/26/2024 09:15:42 pneumococcal conjugate PCV 7 4 completed Not Available [facility] 12/26/2024 09:15:42 Hib, unspecified formulation 4 completed Not Available [facility] 12/26/2024 09:15:42 Hib, unspecified formulation 4 completed Not Available [facility] 12/26/2024 09:15:42 DTaP 4 completed Not Available [facility] 12/26/2024 09:15:42 Hep B, adolescent or pediatric 4 completed Not Available [facility] 12/26/2024 09:15:42 varicella 4 completed Not Available [facility] 12/26/2024 09:15:42 pneumococcal conjugate PCV 7 4 completed Not Available [facility] 12/26/2024 09:15:42 MMR 4 completed Not Available [facility] 12/26/2024 09:15:42 Hib, unspecified formulation 5 completed Not Available [facility] 12/26/2024 09:15:42 DTaP 5 completed Not Available [facility] 12/26/2024 09:15:42 IPV 5 completed Not Available [facility] 12/26/2024 09:15:42 MMR 8 completed Not Available [facility] 12/26/2024 09:15:42 IPV 8 completed Not Available [facility] 12/26/2024 09:15:42 varicella 8 completed Not Available [facility] 12/26/2024 09:15:42 DTaP 8 completed Not Available [facility] 12/26/2024 09:15:42 Hep A, pediatric, unspecified formulation 1 completed Not Available [facility] 12/26/2024 09:15:42 Influenza, live, trivalent, intranasal 1 completed Not Available [facility] 12/26/2024 09:15:42 Influenza, split virus, quadrivalent, PF 4 completed Not Available [facility] 12/26/2024 09:15:42 Hep A, ped/adol, 2 dose 4 completed Not Available [facility] 12/26/2024 09:15:42 Tdap 4 completed Not Available [facility] 12/26/2024 09:15:42 meningococcal MCV4P 5 completed Not Available [facility] 12/26/2024 09:15:42 HPV9 5 completed Not Available [facility] 12/26/2024 09:15:42 Influenza, live, quadrivalent, intranasal 5 completed Not Available [facility] 12/26/2024 09:15:42 HPV9 5 completed Not Available [facility] 12/26/2024 09:15:42 HPV9 6 completed Not Available [facility] 12/26/2024 09:15:42 Meningococcal MCV4O 9 completed Not Available [facility] 12/26/2024 09:15:42 meningococcal B, OMV 9 completed Not Available [facility] 12/26/2024 09:15:42 meningococcal B, OMV 1 completed Not Available [facility] 12/26/2024 09:15:42 Past Encounters Encounter ID Performer Location Encounter Start Date Encounter Closed Date Diagnosis/Indication Diagnosis SNOMED-CT Code Diagnosis ICD10 Code Diagnosis Note [id number] MD Paul Andino 14 IM [address] [facility] [address] [place] [address] 12/26/2024 09:12:15 12/30/2024 11:33:04 Exposure to Treponema pallidum 066271891 Z20.2 exposure 5 days ago to syphillisa symptomati cwill test for all STIscannot empiricall y treat given no penicillin in office; referred to [facility] for penicillin injection Health Concerns Section Related Observation LastModified by Organization Detai ls LastModified Time None Recorded Concern Status LastModified by Organization Details LastModified Time None Recorded Advance Directives Directive None Recorded Payers Insurance Date Sequence Insurance Name Policy Number Policy Arana Covered Member ID Arana Member ID Guarantor Name 12/26/2024 1 [facility] ON OR AFTER 02/03/21 (MEDICAID REPLACEMENT - HMO) Janak Bautista [id number] Janak Bautista 12/26/2024 SLIDING FEE SCHEDULE - [...] lesions Carole Nails MD Attn: Accounting[address] [place], [address], [facility] 12/26/2024 11:52:36 OBGyn Episode No OBEpisode recorded.
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
--- OUTSIDE RECORDS SUMMARY | 2025-01-19 15:34 | XMS_ITS | CONTINUITY OF CARE DOCUMENT ---
Author Name niraj healy Address Unknown Organization [facility] Address [address] [facility] [address] [place] [address] Phone [phone] Care Team Providers Care Hand Dry Cleaner Name Role Phone Vinayak Khan MD Unavailable [phone] Vinayak Khan MD Unavailable INSURANCE PROVIDERS Payer name Policy type / Coverage type [place] ID [id number] MEDICAID (2) Medicaid [id number]
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
== END 2025-01-19 18:00 | disposition left against medical advice (07) ==
DX: Z32.00 Encounter for pregnancy test, result unknown (principal)
CPT/HCPCS: 99199

== ENCOUNTER 2025-07-01 14:05 | Emergency (ER) | payer OTHER, SELFPAY ==
[2025-07-01 14:10] VITALS: BP 121/95; PULSE 100; RESP 20; TEMP 36.7; O2SAT 100
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
[2025-07-01] MEDS: ACETAMINOPHEN 325 MG TABLET 650 MG PO (14:43)
[2025-07-01 14:48] VITALS: BP 132/93; PULSE 104; RESP 16; O2SAT 100
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
== END 2025-07-01 14:49 | disposition home or self-care (01) ==
PROVIDERS: Emergency Provider Emergency Medicine
DX: O9A.212 Injury, poisoning and certain other consequences of external causes complicating pregnancy, second trimester (principal); S09.90XA Unspecified injury of head, initial encounter; S49.92XA Unspecified injury of left shoulder and upper arm, initial encounter; S49.91XA Unspecified injury of right shoulder and upper arm, initial encounter; R10.32 Left lower quadrant pain; Y04.2XXA Assault by strike against or bumped into by another person, initial encounter; Z3A.15 15 weeks gestation of pregnancy
CPT/HCPCS: 99282; A9270

== ENCOUNTER 2025-07-25 13:12 | Emergency (ER) | payer OTHER, SELFPAY ==
--- NOTE | ~2025-07-25 | US_ITS ---
EXAMINATION: Ultrasound uterus OB, Limited for date: DATE: 07/25/2025. INDICATION: 20-year-old , due date by LMP on 12/24/2024. TECHNIQUE: Limited ultrasound uterus for viability and dating. COMPARISON: None. FINDINGS: Single live fetus is noted in breech presentation. heart rate at 1 54 bpm. Amniotic fluid volume is normal. Anterior placenta is normal in location. Cervix measures 2.9 cm in length. Based on biometric measurements, ultrasound gestational age is 18 weeks 3 days +/- 10 days. The expected due date by ultrasound is 12/23/2025. IMPRESSION: 1. Single live fetus as mentioned above. Gestational age 18 weeks and 3 days +/- 10 days. Expected due date by ultrasound on 12/23/2025. 2. As mentioned above, this is a limited study. This is not for anatomic evaluation of fetus. Reviewed, dictated and finalized at location T. [employer] OF SE[employer]ETING IMPRESSION: 1. Single live fetus as mentioned above. Gestational age 18 weeks and 3 days +/ - 10 days. Expected due date by ultrasound on 12/23/2025. 2. As mentioned above, this is a limited study. This is not for anatomic evalua tion of fetus.
[2025-07-25 13:19] VITALS: BP 110/71; PULSE 110; RESP 20; TEMP 36.4; O2SAT 100
--- NOTE | 2025-07-25 13:30 | ECG_ITS ---
Test Date: 2025-07-25 13:51:52 Measurements Intervals Otto Rate: 92 P: 70 MI: 121 QRS: 70 QRSD: 94 T: 43 QT: 370 QTc: 460 Interpretive Statements SINUS RHYTHM INCOMPLETE RIGHT BUNDLE BRANCH BLOCK MINIMAL Q WAVES- INF/LAT LEADS BORDERLINE ST-T WAVE ABNORMALITY- ANTERIOR LEADS BORDERLINE ECG No previous ECG available for comparison Electronically Signed On 07-25-2025 17:26:53 INDUSTRIAL SWEEPER CLEANER by Jose Laurent D.O.
[2025-07-25 14:29] LABS: Cannabinoid Screen Urine Positive (Negative)
[2025-07-25 14:32] LABS: Add Urine Microscopic? YES; Appearance Urine Cloudy (Clear); Glucose Urine UA Negative (Negative); Leukocyte Esterase Ur Trace LEU/UL (Negative); Need Manual Microscopic Reviewed; Nitrate Urine Negative (Negative); Specific Grav Ur 1.023 (1.001-1.035)
[2025-07-25 14:40] LABS: Hematocrit 40.1 % (37.0-47.0); Hemoglobin 13.6 g/dL (12.0-15.0); Immature Granulocyte Percent A 0.4 % (0-0.5); Lymphocytes Absolute Auto 0.71 K/mm3 (0.9-3.2); Mean Corpuscular HGB Conc 33.9 g/dl (32-36); Mean Corpuscular Hemoglobin 28.2 pg (26-34); Mean Corpuscular Volume 83.2 fl (80-100); Nucleated Red Blood Cells Absolute Auto 0.000 K/mm3 (0.0-0.012); Nucleated Red Blood Cells Perc 0.0 % (0.0-0.2); Platelet Count Result 328 k/mm3 (150-375); Red Blood Count 4.82 M/mm3 (4.2-5.4); White Blood Count 8.1 K/mm3 (4.5-10.0)
[2025-07-25 14:44] LABS: SARS-CoV-2 RNA PCR Negative (Negative)
--- OUTSIDE RECORDS SUMMARY | 2025-07-25 14:52 | XMS_ITS | Continuity of Care Document ---
Author Organization Cyrus BARCLAY (NETWORK OPERATIONS MANAGER) Address [address] [place] [id number] Assessment No assessment recorded. Plan of Treatment Reminders Order Date Submit Date Provider Last Modified By Organization Details Last Modified Time Details Appointments None recorded . Lab pap, IG + reflex HPV if ASC-U 2024 025 [facility], [address] [address], [place], [address], 08:56:38 pregnanc y test, urine 2024 025 [email or web address] In-Office Order, Internal Use Only DO Not Attach Compendium DO Not Attach Compendium, Do Not Delete/merge, 13:11:39 urinalys is, dipstick 2024 025 In-Office Order, Internal Use Only DO Not Attach Compendium DO Not Attach Compendium, Do Not Delete/merge, 12:35:08 hemoglob in (Hb) electrop horesis, blood 2024 025 [facility], [address] [facility], [address], [place], [address], 20:10:41 vaginal pathogen s panel, ROZ+prob e, vaginal fluid 2024 025 [facility], [address], [address], [place], [address], 04:11:05 spinal muscular atrophy (sma) mutation s, blood/ti ssue 2024 [facility], [address], [place], [address], 20:10:45 CFTR mutation , blood or tissue 2024 [facility], [address], [place], [address], 20:10:44 panel 2024 [facility], [address] [facility], [facility] [address], [place], [address], 5 20:10:43 aneuploi dy risk and X & Y analysis , chromoso me specific circulat ing cell free (CCF) DNA, maternal serum 2024 [email or web address], [address] [facility], [facility] [address], [place], [address], 11:10:20 drug screen, urine 2024 025 [facility], [address] [facility], [facility] [address], [place], [address], 20:09:55 Referral behavior al health referral 2024 025 [email or web address] [facility] (), [address] [place], [address], 18:23:46 Procedures None recorded . Surgeries None recorded . Imaging US, obstetri c, 1st trimeste r 2024 025 [facility], [address], [place], [address], 11:14:47 Medication Orders None recorded . Patient TargetsNo targets recorded. Patient Instructions Encounter Date Encounter Id Patient Instructions Last Modified By Organization Details Last Modified Time 05/18/2025 [id number] edinburgh depression scale* Not available 05/19/2025 16:27:22 I personally examined the patient with the resident physician. I agree with the findings, assessment, and plan as documented. Cali Levine MD [email or web address] Not available 05/25/2025 13:10:06 Reason for Referral Behavioral Health Referral f or History of depression Referring Physician: Wilbur Enciso, Director Of Patient Financial Services, Encounter Date: 05/18/2025 Results Created Date Observation Date Name Description Value Unit Range Abnormal Flag Note LastModifiedBy Organization Detail LastModifiedTime 05/18/2005/18/2025 [id number] 2 9+OXY CODON E+GLASS GRINDER -SCR please note: COMMEN T This assay provi oksana a preli minar y uncon firme d re tical test resul t that may be suita ble for clini [place] manag ement of patie nts in certa in situa tions . Drug- test resul ts shoul d be inter prete d in the norma xt of clini [place] infor alice gonzalez. Patie nt metab olic varia bles, speci fic drug chemi stry, and speci men wolfgang cteri stics can affec t test outco me. Techn ical consu ltati on is avail able if a test resul t is incon siste nt with an expec mercy outco me. Email : clini caldr [email or web address] [email or web address] Phone : [phone] Not Available [facility] ([facility]) [address] [facility], [place], [address], 05/19/2025 20:09:55 05/18/2005/19/2025 [id number] 2 9+OXY CODON E+GLASS GRINDER -SCR amphetamines screen, urine NEGATI VE NG/mL cutoff =1000 Not Available [facility] ([facility]) [address] [facility], [place], [address], 05/19/2025:09:55 05/18/20 25 05/19/2025 [id number] 2 9+OXY CODON E+GLASS GRINDER -SCR barbiturates screen, urine NEGATI VE NG/mL cutoff =200 Not Available [facility] ([facility]) [address] [place], [address], 05/19/2025 20:09:55 05/18/2005/19/2025 [id number] 2 9+OXY CODON E+GLASS GRINDER -SCR benzodiazepi gladis screen, urine NEGATI VE NG/mL cutoff =200 Not Available [facility] ([facility]) [address] [place], [address], 05/19/2025 20:09:55 05/18/2005/19/2025 [id number] 2 9+OXY CODON E+GLASS GRINDER -SCR cannabinoid screen, urine POSITI VE NG/mL cutoff =20 abnormal Not Available [facility] ([facility]) [address] [place], [address], 05/19/2025 20:09:55 05/18/2005/19/2025 [id number] 2 9+OXY CODON E+GLASS GRINDER -SCR cocaine (metab.) screen, urine NEGATI VE NG/mL cutoff =300 Not Available [facility] ([facility]) [address] [place], [address], 05/19/2025 20:09:55 05/18/2005/19/2025 [id number] 2 9+OXY CODON E+GLASS GRINDER -SCR opiate screen, urine NEGATI VE NG/mL cutoff =300 Opiat e test inclu oksana Codei ne, Morph ine, Shawnee morph one, Shawnee codon e. Not Available [facility] ([facility]) [address] [place], [address], 05/19/2025 20:09:55 05/18/20 25 05/19/2025 [id number] 2 9+OXY CODON E+GLASS GRINDER -SCR oxycodone/ox ymorphone, urine NEGATI VE NG/mL cutoff =100 Test inclu oksana Oxyco done and Oxymo rphon e Not Available [facility] ([facility]) [address] [place], [address], 05/19/2025 20:09:55 05/18/2005/19/2025 [id number] 2 9+OXY CODON E+GLASS GRINDER -SCR phencyclidin e screen, urine NEGATI VE NG/mL cutoff =25 Not Available [facility] ([facility]) [address] [place], [address], 05/19/2025 20:09:55 05/18/2005/19/2025 [id number] 2 9+OXY CODON E+GLASS GRINDER -SCR methadone screen, urine NEGATI VE NG/mL cutoff =300 Not Available [facility] ([facility]) [address] [place], [address], 05/19/2025 20:09:55 05/18/2005/19/2025 [id number] 2 9+OXY CODON E+GLASS GRINDER -SCR propoxyphene screen, urine NEGATI VE NG/mL cutoff =300 Not Available [facility] ([facility]) [address] [place], [address], 05/19/2025 20:09:55 05/18/2005/19/2025 [id number] 2 9+OXY CODON E+GLASS GRINDER -SCR creatinine, urine 181.6 mg/dL 20.0-3 00.0 Not Available [facility] ([facility]) [address] [place], [address], 05/19/2025 20:09:55 05/18/2005/19/2025 [id number] 2 9+OXY CODON E+GLASS GRINDER -SCR pH, urine 5.3 4.5-8. 9 Not Available [facility] ([facility]) [address] [place], [address], 05/19/2025 20:09:55 05/18/2005/19/2025 NUA B VAGIN ITIS PLUS (VG+) atopobium vaginae MODERA TE - 1 score Not Available [facility] ([facility]) [address] [place], [address], 05/20/2025 04:11:05 05/18/2005/19/2025 NUSWA B VAGIN ITIS PLUS (VG+) bvab 2 LOW - 0 score Not Available [facility] ([facility]) [address] [facility], [place], [address], 05/20/2025 04:11:05 05/18/2005/19/2025 NUA B VAGIN ITIS PLUS (VG+) megasphaera 1 LOW - 0 score Calcu late total score by shilo joseph [...] prese nce of BV. Not Available [facility] ([facility]) [address] [facility], [place], [address], 05/20/2025 04:11:05 05/18/2005/19/2025 NUA B VAGIN ITIS PLUS (VG+) hua albicans, ROZ NEGATI VE negati ve Not Available [facility] ([facility]) [address] [place], [address], 05/20/2025 04:11:05 05/18/2005/19/2025 NUA B VAGIN ITIS PLUS (VG+) hua glabrata, ROZ NEGATI VE negati ve Not Available [facility] ([facility]) [address] [place], [address], 05/20/2025 04:11:05 05/18/2005/20/2025 NUSWA B VAGIN ITIS PLUS (VG+) trich vag by ROZ NEGATI VE negati ve Not Available [facility] ([facility]) [address] [place], [address], 05/20/2025 04:11:05 05/18/2005/20/2025 NUA B VAGIN ITIS PLUS (VG+) chlamydia trachomatis, ROZ POSITI VE negati ve abnormal Not Available [facility] ([facility]) [address] [place], [address], 05/20/2025 04:11:05 05/18/2005/20/2025 NUA B VAGIN ITIS PLUS (VG+) neisseria gonorrhoeae, ROZ NEGATI VE negati ve Not Available [facility] ([facility]) [address] [place], [address], 05/20/2025 04:11:05 05/18/2005/22/2025 IGP,R FX APT HPV ASCU, 16/18 ,45 diagnosis: COMMEN T NEGAT SHAGUFTA FOR INTRA EPITH ELIAL LESIO N OR SIN BELLA . Not Available [facility] ([facility]) [address] [place], [address], 05/22/2025 16:23:15 05/18/2005/22/2025 IGP,R FX APT HPV ASCU, 16/18 ,45 specimen adequacy: COMMEN T Satis facto ry for evalu ation . Endoc ervic al and/o r squam ous metap lasti c cells (endo cervi [place] compo nent) are prese nt. Not Available [facility] ([facility]) [address] [place], [address], 05/22/2025 16:23:15 05/18/2005/22/2025 IGP,R FX APT HPV ASCU, 16/18 ,45 clinician provided ICD10: FARIBA Bello Z34.9 1 Not Available [facility] ([facility]) [address] [place], [address], 05/22/2025 16:23:15 05/18/2005/22/2025 IGP,R FX APT HPV ASCU, 16/18 ,45 performed by: FARIBA burris, Cytol ogist (ASCP ) Not Available [facility] ([facility]) [address] [place], [address], 05/22/2025 16:23:15 05/18/2005/22/2025 IGP,R FX APT HPV ASCU, 16/18 ,45 . . Not Available [facility] ([facility]) [address] [place], [address], 05/22/2025 16:23:15 05/18/2005/22/2025 IGP,R FX APT HPV ASCU, 16/18 ,45 note: FARIBA Bello The Pap smear is a scree julito test desig salome to aid in the detec tion of zoila ligna nt and malig nant condi tions of the uteri ne cervi x. It is not a diagn ostic proce dure and shoul d not be used as the sole means of detec ting cervi [place] cance r. Both false -posi tive and false -nega tive repor ts do occur . Not Available [facility] ([facility]) [address] [place], [address], 05/22/2025 16:23:15 05/18/2005/22/2025 IGP,R FX APT HPV ASCU, 16/18 ,45 test methodology: FARIBA Bello This liqui d based ThinP rep(R ) pap test was inter prete d using the Holog ic(R) Geniu s(TM) Cervi or[place] Algor ithm whole slide imagi ng syste m. Not Available [facility] ([facility]) [address] [facility], [place], [address], 05/22/2025 16:23:15 05/18/2005/22/2025 IGP,R FX APT HPV ASCU, 16/18 ,45 . COMMEN T The HPV DNA refle x crite neeraj were not met with this speci men resul t there fore, no HPV testi ng was perfo rmed. Not Available [facility] ([facility]) [address] [facility], [place], [address], 05/22/2025 16:23:15 05/18/20 25 05/19/2025 HGB FRACT IONAT ION CASCA DE HGB F 1.7 % 0.0-2. 0 Not Available [facility] ([facility]) [address] [facility], [place], [address], 05/26/2025 20:10:41 05/18/20 25 05/19/2025 HGB FRACT IONAT ION CASCA DE HGB A 56.8 % 96.4-9 8.8 below low normal Not Available [facility] ([facility]) [address] [facility], [place], [address], 05/26/2025 20:10:41 05/18/20 25 05/19/2025 HGB FRACT IONAT ION CASCA DE HGB A2 2.8 % 1.8-3. 2 Not Available [facility] ([facility]) [address] [place], [address], 05/26/2025 20:10:41 05/18/20 25 05/19/2025 HGB FRACT IONAT ION CASCA DE HGB S 38.7 % 0.0 above high normal Not Available [facility] ([facility]) [address] [facility], [place], [address], 05/26/2025 20:10:41 05/18/20 25 05/19/2025 HGB FRACT IONAT ION CASCA DE interpretati on: COMMEN T Refle x to Hgb Solub ility indic ated for confi rmati on. Not Available [facility] ([facility]) [address] [facility], [place], [address], 05/26/2025 20:10:41 05/18/20 25 05/19/2025 HGB SOLUB ILITY HGB solubility Positi ve negati ve abnormal Not Available [facility] ([facility]) [address] [facility], [place], [address], 05/26/2025 20:10:42 05/18/20 25 05/19/2025 HGB SOLUB ILITY final interpretati on: Commen t Hemog antonieta florez rn and rik ntrat ions are consi stent with sickl e cell trait (hete rozyg ous). Sugge st clini [place] and hemat ologi c corre latio n. Sickl e Trait Inter preta tion Range s Hgb A 50.0 - 70.0% Hgb S 30.0 - 45.0% Hgb A2 1.8 - 4.0% Not Available [facility] ([facility]) [address] [facility], [place], [address], 05/26/2025 20:10:42 05/18/20 25 05/19/2025 INTER PRETA TION: interpretati on: Commen t Not infec mercy with HCV unles s early or acute infec tion is suspe cted (whic h may be delay ed in an immun ocomp romis ed indiv idual ), or other evide nce exist s to indic ate HCV infec tion. Not Available [facility] ([facility]) [address] [facility], [place], [address], 05/26/2025 20:10:43 05/18/2005/19/2025 PREGN JUAN MANUEL, INITI AL SCREE N HBsAg screen NEGATI VE negati ve Not Available [facility] ([facility]) [address] [facility], [place], [address], 05/26/2025 20:10:43 05/18/20 25 05/19/2025 PREGN JUAN MANUEL, INITI AL SCREE N HCV Ab NON REACTI VE nonrea ctive Not Available [facility] ([facility]) [address] [place], [address], 05/26/2025 20:10:43 05/18/20 25 05/19/2025 PREGN JUAN MANUEL, INITI AL SCREE N RPR NON REACTI VE nonrea ctive Not Available [facility] ([facility]) [address] [place], [address], 05/26/2025 20:10:43 05/18/2005/19/2025 PREGN JUAN MANUEL, INITI AL SCREE N rubella antibodies, IgG 11.00 index immune >0.99 Non-i mmune <0.90 Equiv ocal 0.90 - 0.99 Immun e >0.99 Not Available [facility] ([facility]) [address] [place], [address], 05/26/2025 20:10:43 05/18/20 25 05/19/2025 PREGN JUAN MANUEL, INITI AL SCREE N ABO grouping A Not Available [facility] ([facility]) [address] [place], [address], 05/26/2025 20:10:43 05/18/20 25 05/19/2025 PREGN JUAN MANUEL, INITI AL SCREE N Rh factor POSITI VE Pleas e note: Prior recor ds for this patie nt's ABO / Rh type are not avail able for addit ional verif icati on. Not Available [facility] ([facility]) [address] [place], [address], 05/26/2025 20:10:43 05/18/20 25 05/19/2025 PREGN JUAN MANUEL, INITI AL SCREE N antibody screen NEGATI VE negati ve Not Available [facility] ([facility]) [address] [place], [address], 05/26/2025 20:10:43 05/18/2005/19/2025 PREGN JUAN MANUEL, INITI AL SCREE N HIV Ab/P24 Ag screen NON REACTI VE nonrea ctive HIV-1 /HIV- 2 antib odies and HIV-1 p24 antig en were NOT detec mercy. There is no labor atory evide nce of HIV infec tion. HIV Negat shagufta Not Available [facility] ([facility]) [address] [facility], [place], [address], 05/26/2025 20:10:43 05/18/2005/19/2025 PREGN JUAN MANUEL, INITI AL SCREE N WBC 9.3 x10e3 /uL 3.4-10 .8 Not Available [facility] ([facility]) [address] [facility], [place], [address], 05/26/2025 20:10:43 05/18/20 25 05/19/2025 PREGN JUAN MANUEL, INITI AL SCREE N RBC 4.14 x10e6 /uL 3.77-5 .28 Not Available [facility] ([facility]) [address] [facility], [place], [address], 05/26/2025 20:10:43 05/18/20 25 05/19/2025 PREGN JUAN MANUEL, INITI AL SCREE N hemoglobin 11.1 g/dL 11.1-1 5.9 Not Available [facility] ([facility]) [address] [facility], [place], [address], 05/26/2025 20:10:43 05/18/2005/19/2025 PREGN JUAN MANUEL, INITI AL SCREE N hematocrit 35.8 % 34.0-4 6.6 Not Available [facility] ([facility]) [address] [place], [address], 05/26/2025 20:10:43 05/18/20 25 05/19/2025 PREGN JUAN MANUEL, INITI AL SCREE N MCV 87 fL 79-97 Not Available [facility] ([facility]) [address] [facility], [place], [address], 05/26/2025 20:10:43 05/18/2005/19/2025 PREGN JUAN MANUEL, INITI AL SCREE N MCH 26.8 pg 26.6-3 3.0 Not Available [facility] ([facility]) [address] [facility], [place], [address], 05/26/2025 20:10:43 05/18/2005/19/2025 PREGN JUAN MANUEL, INITI AL SCREE N MCHC 31.0 g/dL 31.5-3 5.7 below low normal Not Available [facility] ([facility]) [address] [facility], [place], [address], 05/26/2025 20:10:43 05/18/2005/19/2025 PREGN JUAN MANUEL, INITI AL SCREE N RDW 13.0 % 11.7-1 5.4 Not Available [facility] ([facility]) [address] [facility], [place], [address], 05/26/2025 20:10:43 05/18/20 25 05/19/2025 PREGN JUAN MANUEL, INITI AL SCREE N platelets 305 x10e3 /uL 150-45 0 Not Available [facility] ([facility]) [address] [facility], [place], [address], 05/26/2025 20:10:43 05/18/2005/19/2025 PREGN JUAN MANUEL, INITI AL SCREE N neutrophils 76 % notest ab. Not Available [facility] ([facility]) [address] [facility], [place], [address], 05/26/2025 20:10:43 05/18/20 25 05/19/2025 PREGN JUAN MANUEL, INITI AL SCREE N lymphs 19 % notest ab. Not Available [facility] ([facility]) [address] [facility], [place], [address], 05/26/2025 20:10:43 05/18/20 25 05/19/2025 PREGN JUAN MANUEL, INITI AL SCREE N monocytes 4 % notest ab. Not Available [facility] ([facility]) [address] [facility], [place], [address], 05/26/2025 20:10:43 05/18/20 25 05/19/2025 PREGN JUAN MANUEL, INITI AL SCREE N eos 1 % notest ab. Not Available [facility] ([facility]) [address] [facility], [place], [address], 05/26/2025 20:10:43 05/18/2005/19/2025 PREGN JUAN MANUEL, INITI AL SCREE N basos 0 % notest ab. Not Available [facility] ([facility]) [address] [facility], [place], [address], 05/26/2025 20:10:43 05/18/20 25 05/19/2025 PREGN JUAN MANUEL, INITI AL SCREE N neutrophils (absolute) 7.0 x10e3 /uL 1.4-7. 0 Not Available [facility] ([facility]) [address] [place], [address], 05/26/2025 20:10:43 05/18/20 25 05/19/2025 PREGN JUAN MANUEL, INITI AL SCREE N lymphs (absolute) 1.8 x10e3 /uL 0.7-3. 1 Not Available [facility] ([facility]) [address] [place], [address], 05/26/2025 20:10:43 05/18/20 25 05/19/2025 PREGN JUAN MANUEL, INITI AL SCREE N monocytes(ab solute) 0.4 x10e3 /uL 0.1-0. 9 Not Available [facility] ([facility]) [address] [place], [address], 05/26/2025 20:10:43 05/18/2005/19/2025 PREGN JUAN MANUEL, INITI AL SCREE N eos (absolute) 0.1 x10e3 /uL 0.0-0. 4 Not Available [facility] ([facility]) [address] [place], [address], 05/26/2025 20:10:43 05/18/2005/19/2025 PREGN JUAN MANUEL, INITI AL SCREE N baso (absolute) 0.0 x10e3 /uL 0.0-0. 2 Not Available [facility] ([facility]) [address] [place], [address], 05/26/2025 20:10:43 05/18/2005/19/2025 PREGN JUAN MANUEL, INITI AL SCREE N immature granulocytes 0 % notest ab. Not Available [facility] ([facility]) [address] [facility], [place], [address], 05/26/2025 20:10:43 05/18/2005/19/2025 PREGN JUAN MANUEL, INITI AL SCREE N immature grans (abs) 0.0 x10e3 /uL 0.0-0. 1 Not Available [facility] ([facility]) [address] [place], [address], 05/26/2025 20:10:43 05/18/2005/19/2025 PREGN JUAN MANUEL, INITI AL SCREE N specific gravity 1.021 1.005- 1.030 Not Available [facility] ([facility]) [address] [place], [address], 05/26/2025 20:10:43 05/18/2005/19/2025 PREGN JUAN MANUEL, INITI AL SCREE N pH 5.5 5.0-7. 5 Not Available [facility] ([facility]) [address] [place], [address], 05/26/2025 20:10:43 05/18/2005/1905/19/2025 PREGN JUAN MANUEL, INITI AL SCREE N urine-color YELLOW yellow Not Available [facility] ([facility]) [address] [place], [address], 05/26/2025 20:10:43 05/18/2005/19/2025 PREGN JUAN MANUEL, INITI AL SCREE N appearance CLEAR clear Not Available [facility] ([facility]) [address] [place], [address], 05/26/2025 20:10:43 05/18/2005/19/2025 PREGN JUAN MANUEL, INITI AL SCREE N WBC esterase NEGATI VE negati ve Not Available [facility] ([facility]) [address] [place], [address], 05/26/2025 20:10:43 05/18/2005/19/2025 PREGN JUAN MANUEL, INITI AL SCREE N protein NEGATI VE negati ve/tra ce Not Available [facility] ([facility]) [address] [place], [address], 05/26/2025 20:10:43 05/18/2005/19/2025 PREGN JUAN MANUEL, INITI AL SCREE N glucose NEGATI VE negati ve Not Available [facility] ([facility]) [address] [place], [address], 05/26/2025 20:10:43 05/18/2005/19/2025 PREGN JUAN MANUEL, INITI AL SCREE N ketones TRACE negati ve abnormal Not Available [facility] ([facility]) [address] [place], [address], 05/26/2025 20:10:43 05/18/20 25 05/19/2025 PREGN JUAN MANUEL, INITI AL SCREE N occult blood NEGATI VE negati ve Not Available [facility] ([facility]) [address] [place], [address], 05/26/2025 20:10:43 05/18/20 25 05/19/2025 PREGN JUAN MANUEL, INITI AL SCREE N bilirubin NEGATI VE negati ve Not Available [facility] ([facility]) [address] [facility], [place], [address], 05/26/2025 20:10:43 05/18/20 25 05/19/2025 PREGN JUAN MANUEL, INITI AL SCREE N urobilinogen ,semi-qn 0.2 mg/dL 0.2-1. 0 Not Available [facility] ([facility]) [address] [facility], [place], [address], 05/26/2025 20:10:43 05/18/20 25 05/19/2025 PREGN JUAN MANUEL, INITI AL SCREE N nitrite, urine NEGATI VE negati ve Not Available [facility] ([facility]) [address] [facility], [place], [address], 05/26/2025 20:10:43 05/18/20 25 05/19/2025 PREGN JUAN MANUEL, INITI AL SCREE N microscopic examination COMMEN T Micro scopi c follo ws if indic ated. Not Available [facility] ([facility]) [address] [facility], [place], [address], 05/26/2025 20:10:43 05/18/20 25 05/19/2025 PREGN JUAN MANUEL, INITI AL SCREE N microscopic examination SEE BELOW: Micro scopi c was indic ated and was perfo rmed. Not Available [facility] ([facility]) [address] [facility], [place], [address], 05/26/2025 20:10:43 05/18/20 25 05/20/2025 PREGN JUAN MANUEL, INITI AL SCREE N chlamydia trachomatis, ROZ POSITI VE negati ve abnormal Not Available [facility] ([facility]) [address] [place], [address], 05/26/2025 20:10:43 05/18/20 25 05/20/2025 PREGN JUAN MANUEL, INITI AL SCREE N neisseria gonorrhoeae, ROZ NEGATI VE negati ve Not Available [facility] ([facility]) [address] [facility], [place], [address], 05/26/2025 20:10:43 05/18/20 25 05/20/2025 PREGN JUAN MANUEL, INITI AL SCREE N urine culture,pren atal, w/gbs FINAL REPORT Not Available [facility] ([facility]) [address] [facility], [place], [address], 05/26/2025 20:10:43 05/18/2005/19/2025 MICRO SCOPI C EXAMI NATIO N WBC 0-5 /hpf 0-5 Not Available [facility] ([facility]) [address] [facility], [place], [id number], 05/26/2025 20:10:44 05/18/20 25 05/19/2025 MICRO SCOPI C EXAMI NATIO N RBC 0-2 /hpf 0-2 Not Available [facility] ([facility]) [address] [facility], [place], [id number], 05/26/2025 20:10:44 05/18/20 25 05/19/2025 MICRO SCOPI C EXAMI NATIO N epithelial cells (non renal) 0-10 /hpf 0-10 Not Available [facility] ([facility]) [address] [facility], [place], [id number], 05/26/2025 20:10:44 05/18/2005/19/2025 MICRO SCOPI C EXAMI NATIO N casts None seen /lpf nonese en Not Available [facility] ([facility]) [address] [facility], [place], [id number], 05/26/2025 20:10:44 05/18/20 25 05/19/2025 MICRO SCOPI C EXAMI NATIO N crystals Presen t n/a abnormal Not Available [facility] ([facility]) [address] [facility], [place], [address], 05/26/2025 20:10:44 05/18/2005/19/2025 MICRO SCOPI C EXAMI NATIO N crystal type Calciu m Oxalat e Not Available [facility] ([facility]) [address] [facility], [place], [address], 05/26/2025 20:10:44 05/18/2005/19/2025 MICRO SCOPI C EXAMI NATIO N mucus threads Presen t notest ab. Not Available [facility] ([facility]) [address] [facility], [place], [address], 05/26/2025 20:10:44 05/18/2005/19/2025 MICRO SCOPI C EXAMI NATIO N bacteria Few nonese en/few Not Available [facility] ([facility]) [address] [facility], [place], [address], 05/26/2025 20:10:44 05/18/2005/26/2025 CYSTI C FIBRO SIS, 97 VARIA NTS ethnicity COMMEN T Not Provi ded Not Available [facility] ([facility]) [address] [place], [address], 05/26/2025 20:10:44 05/18/2005/26/2025 CYSTI C FIBRO SIS, 97 VARIA NTS specimen type COMMEN T Whole Blood Not Available [facility] ([facility]) [address] [place], [address], 05/26/2025 20:10:44 05/18/2005/26/2025 CYSTI C FIBRO SIS, 97 VARIA NTS indication COMMEN T Tiffanie er Test / Scree julito Not Available [facility] ([facility]) [address] [place], [address], 05/26/2025 20:10:44 05/18/2005/26/2025 CYSTI C FIBRO SIS, 97 VARIA NTS result: COMMEN T NEGAT SHAGUFTA Not Available [facility] ([facility]) [address] [facility], [place], [address], 05/26/2025 20:10:44 05/18/20 25 05/26/2025 CYSTI C FIBRO SIS, 97 VARIA NTS interpretati on COMMEN T Negat shagufta Resul ts Disor ders (Gene ) Resul t Inter preta tion Cysti c fibro sis NEGAT SHAGUFTA This resul t reduc es, CFTR NM_00 0492. 4 but does not elimi sravan, the risk to be a tiffanie er. Risk: At reduc ed risk for an affec mercy pregn juan manuel. For ethni c-spe cific risk figueroa ions see Infor alice n Table . Not Available [facility] ([facility]) [address] [facility], [place], [address], 05/26/2025 20:10:44 05/18/2005/26/2025 CYSTI C FIBRO SIS, 97 VARIA NTS recommendati ons COMMEN T If the above resul t is posit shagufta, claudia ic couns brianna is recom sulaiman d to discu ss the poten tial clini [place] and/o r repro ducti ve impli catio ns, as well as recom menda tions for testi ng famil y membe rs and, when appli cable , this indiv idual 's partn er. Claudia ic couns brianna servi jabari are avail able. To acces s [facility] Claudia ic Couns janeth melchor e visit https ://wo [facility] ealt [facility] orp.c om/ge netic -coun aryan joseph or call (693) -[facility] ([phone]). Not Available [facility] ([facility]) [address] [facility], [place], [address], 05/26/2025 20:10:44 05/18/2005/26/2025 CYSTI C FIBRO SIS, 97 VARIA NTS additional clinicalinfo rmation COMMEN T Cysti c fibro sis (CF) is an autos omal reces sive disor clair with varia ble sever ity and age at onset . Signs and sympt oms of class ic CF may inclu de eleva mercy sweat chlor sarah level s, progr essiv e lung disea se, pancr eatic insuf ficie ncy, and male infer tilit y. Sympt oms of mild CF may inclu de pancr eatic suffi cienc y. Sympt oms of CFTR- relat ed disor ders may inclu de pancr eatit is, bronc hiect asis, and isola mercy male infer tilit y due to conge nital absen ce of the vas defer ens (CBAV D). Treat ment is dieta ry and suppo rtive . Genot ype-t arget ed thera pies may be avail able for some indiv idual s. In sever leonid affec mercy indiv idual s, lung trans plant ation may be indic ated. (PMID :2030 [id number]) . Not Available [facility] ([facility]) [address] [facility], [place], [address], 05/26/2025 20:10:44 05/18/2005/26/2025 CYSTI C FIBRO SIS, 97 VARIA NTS comments COMMEN T This inter preta tion is based on the clini [place]ville infor matio n provi ded and the curre nt under stand ing of the [facility] ulchris claudia ics of the disor clair(s ) teste d. Infor matio n about the disor clair(s ) teste d is avail able at https ://wo [facility] ealt [facility] orp.c om. Not Available [facility] ([facility]) [address] [facility], [place], [address], 05/26/2025 20:10:44 05/18/2005/26/2025 CYSTI C FIBRO SIS, 97 VARIA NTS methods/limi tations COMMEN T Next- gener ation Seque ncing (NGS) : Genom ic regio ns of inter est in the CFTR gene are selec mercy using the Unbound ience (R) hybri dizat ion captu re metho d and seque nced via the Oodle(R ) NGS platf orm. Seque ncing reads are align ed to the human genom e refer ence GRCh3 7/hg1 9 build . Regio ns of inter est inclu de genom ic regio ns encom passi ng targe mercy varia nts. Re tical sensi tivit y is estim ated to be >99% for singl e nucle otide varia nts and small inser tions /josee tions . Varia nt detec tion is perfo rmed by CALVIN Gonzalez [facility] [employer] and in-ho use algor ithms . Confi rmato ry testi ng is done by Teresita r seque ncing . Varia nts are speci fied using the numbe ring and nomen clatu re recom sulaiman d by the Human Genom e Varia tion Socie ty (HGVS , http: //www .hgvs .org/ ). Varia nt class ifica tion and confi rmati on are consi stent with ACMG stand ards and guide lines (Rich ards, PMID: [id number] 868; Henry, PMID: 47977 774). Re sis is restr icted to 97 targe mercy CF varia nts, liste d below . c.54- 5940_ 273+1 0250d el210 80, c.178 G>T (p.Gl u60*) , c.223 C> T (p.Ar g75*) , c.254 G>A (p.Gl y85Gl u), c.262 _263d elTT (p.Le u88Il efs*2 2), c.273 +1G>A , c.273 +3A>C , c.274 -1G>A , c.274 G>T (p.Gl u92*) , c.313 Mere (p.Il e105S erfs* 2), c.325 _327d elins G (p.Ty r109G lyfs* 4), c.349 C>T (p.Ar g117C ys), c.350 G>A (p.Ar g117H is), c.366 T>A (p.Ty r122* ), c.442 Mere (p.Il e148L eufs* 5), c.489 +1G>T , c.531 delT (p.Il e177M etfs* 12), c.532 G>A (p.Gl y178A rg), c.579 +1G&g t;T, c.579 +5G>A , c.580 -1G>T , c.617 T>G (p.Le u206T rp), c.803 Mere (p.As n268I lefs* 17), c.805 _806d elAT (p.Il e269P rofs* 4), c.935 _937d elTCT (p.Ph e312d el), c.948 delT (p.Ph e316L eufs* 12), c.988 G>T (p.Gl y330* ), c.100 0C>T (p.Ar g334T rp), c.101 3C>T (p.Th r338I le), c.104 0G>A (p.Ar g347H is), c.104 0G>C (p.Ar g347P ro), c.105 5G>A (p.Ar g352G ln), c.[10 75C>A ;1079 C>A] (p.[G ln359 Jerrica;T hr360 Jerrica]) , c.115 5_115 6dupT A (p.As n386I lefs* 3), c.136 4C>A (p.Al a455G sandra), c.143 8G>T (p.Gl y480C ys), c.147 7C>T (p.Gl n493* ), c.151 9_152 1delA TC (p.Il e507d el), c.152 1_152 3delC TT (p.Ph e508d el), c.154 5_154 6delT A (p.Ty r515* ), c.155 8G>T (p.Va l520P he), c.157 2C>A (p.Cy s524* ), c.158 5-1G> A, c.162 4G>T (p.Gl y542* ), c.164 6G>A (p.Se r549A sn), c.164 7T>G (p.Se r549A rg), c.165 2G>A (p.Gl y551A sp), c.165 4C>T (p.Gl n552* ), c.165 7C>T (p.Ar g553* ), c.167 5G>A (p.Al a559T hr), c.167 9G>C (p.Ar g560T hr), c.168 0-1G> A, c.172 1C>A (p.Pr o574H is), c.176 6+1G> A, c.176 6+5G> T, c.182 0_190 3del8 4 (p.Me t607_ Gln63 4del) , c.191 1delG (p.Gl n637H isfs* 26), c.192 3_193 1deli nsA (p.Se r641A rgfs* 5), c.197 3_198 5deli nsAGA AA (p.Ar g658L ysfs* 4), c.197 6delA (p.As n659I lefs* 4), c.201 2delT (p.Le u671* ), c.205 1_205 2deli nsG (p.Ly s684S erfs* 38), c.205 2delA (p.Ly s684A snfs* 38), c.205 2dupA (p.Gl n685T hrfs* 4), c.212 5C>T (p.Ar g709* ), c.212 8A>T (p.Ly s710* ), c.217 5dupA (p.Gl u726A rgfs* 4), c.229 0C>T (p.Ar g764* ), c.265 7+5G> A, c.266 8C>T (p.Gl n890* ), c.273 7_273 8insG (p.Ty r913* ), c.298 8G>A (p.Gl n996= ), c.298 8+1G> A, c.303 9delC (p.Ty r1014 Thrfs *9), c.306 7_307 2delA TAGTG (p.Il e1023 _Val1 024de l), c.319 6C>T (p.Ar g1066 Cys), c.326 6G>A (p.Tr p1089 *), c.327 6C>A (p.Ty r1092 *), c.327 6C>G (p.Ty r1092 *), c.330 2T>A (p.Me t1101 Jerrica), c.345 4G>C (p.As p1152 His), c.347 2C>T (p.Ar g1158 *), c.348 4C>T (p.Ar g1162 *), c.352 8delC (p.Ly s1177 Serfs *15), c.353 6_353 9delC CAA (p.Th r1179 Asnfs *12), c.358 7C>G (p.Se r1196 *), c.361 1G>A (p.Tr p1204 *), c.365 9delC (p.Th r1220 Lysfs *8), c.371 2C>T (p.Gl n1238 *), c.371 8-247 7C>T, c.374 4delA (p.Ly s1250 Argfs *9), c.375 2G>A (p.Se r1251 Asn), c.376 4C>A (p.Se r1255 *), c.377 3dupT (p.Le u1258 Phefs *7), c.384 6G>A (p.Tr p1282 *), c.388 9dupT (p.Se r1297 Phefs *5), c.390 9C>G (p.As n1303 Jerrica) Limit ation s: Techn ologi es used do not detec t germl ine mosai cism and do not rule out the prese nce of large chrom osoma l aberr ation s inclu ding rearr angem ents and gene fusio ns, or varia nts in regio ns or genes not inclu ded in this test, or possi ble inter /intr ageni c inter actio ns betwe en varia nts, or repea t expan sions . Varia nt class ifica tion and/o r inter preta tion may ryder e over time if more infor alice carrillo es avail able. False posit shagufta or false negat shagufta resul ts may occur for reaso ns that inclu de: rare claudia ic varia nts, sex chrom osome abnor malit ies, pseud ogene inter feren ce, blood trans fusio ns, bone marro w trans plant ation , somat ic or tissu e-spe cific mosai cism, misla beled sampl es, or michael eous repre senta tion of famil y relat ionsh ips. This test was devel oped and its perfo rmanc e wolfgang cteri stics deter mined by [employer]. It has not been clear ed or appro ifeanyi by the Food and Drug Admin istra tion. Not Available [facility] ([facility]) [address] [facility], [place], [address], 05/26/2025 20:10:44 05/18/2005/26/2025 CYSTI C FIBRO SIS, 97 VARIA NTS information table COMMEN T Cysti c fibro sis, 97 varia nts, risk reduc tions for indiv idual s with no famil y histo ry Popul ation Detec tion rate Pre-t est Post- test tiffanie er tiffanie er risk risk with negat shagufta resul t Ashke nazi 97% 1 in 24 1 in 767 Jewis h 55% 1 in 94 1 in 208 Ameri can Black 81% 1 in 61 1 in 316 Hispa alcira 78% 1 in 58 1 in 260 White 93% 1 in 25 1 in 343 Mixed or For couns eling other ethni c purpo ses, backg round consi clair using the ethni c backg round with the most conse rvati ve risk estim ates. Not Available [facility] ([facility]) [address] [facility], [place], [address], 05/26/2025 20:10:44 05/18/2005/26/2025 CYSTI C FIBRO SIS, 97 VARIA NTS references COMMEN T Deign an JL, Bettina ry C, Cutti ng GR et al. CFTR varia nt testi ng: a techn ical stand shantanu of the [facility] of Medic al Claudia ics and Genom ics ([facility] ). Claudia Med 22, 8215 (2019 ). PMID: 49482 922 Torres T, Ryan agrawal SG, Neva shaw BA, et al. Cysti c Fibro sis and Conge nital Absen ce of the Vas Defer ens. 2000 [Upda mercy 2016Sep 07]. In: Yinka MP, Araceli jasso HH, Red RA, et al., chandu rs. GeneR maria victoria molina(R) [Inte rnet] . PMID: 40784 428 Not Available [facility] ([facility]) [address] [facility], [place], [address], 05/26/2025 20:10:44 05/18/2005/26/2025 CYSTI C FIBRO SIS, 97 VARIA NTS director review/relea se COMMEN T [place] nent Type Perfo rmed At Labor atory Direc tor Techn ical Labor atory Rafael Rehman , compo nent, Corpo ratio n of , PhD proce ssing [facility], [address] [place], [address] Techn ical Labor atory Rafael Rehman , compo nent, Corpo ratio n of , PhD re sis [facility], [address] , [place], [address] Tani estrada WSTGD 6, Rafael Rehman , compo nent Labor yakelin REIS, PhD Corpo ratio n of [facility], [address] , [place], [address] Mattie calvo sed by Queenie Yang, PhD, [facility] Not Available [facility] ([facility]) [address] [place], [address], 05/26/2025 20:10:44 05/18/2005/26/2025 CYSTI C FIBRO SIS, 97 VARIA NTS pdf . Not Available [facility] ([facility]) [address] [facility], [place], [address], 05/26/2025 20:10:44 05/18/2005/22/2025 SPINA L MUSCU LAR ATROP HY (SMA) ethnicity COMMEN T Not Provi ded Not Available [facility] ([facility]) [address] [facility], [place], [address], 05/26/2025 20:10:45 05/18/2005/22/2025 SPINA L MUSCU LAR ATROP HY (SMA) specimen type COMMEN T Whole Blood Not Available [facility] ([facility]) [address] [place], [address], 05/26/2025 20:10:45 05/18/2005/22/2025 SPINA L MUSCU LAR ATROP HY (SMA) indication COMMEN T Tiffanie er Test / Scree julito Not Available [facility] ([facility]) [address] [facility], [place], [address], 05/26/2025 20:10:45 05/18/2005/22/2025 SPINA L MUSCU LAR ATROP HY (SMA) result: COMMEN T NEGAT SHAGUFTA Not Available [facility] ([facility]) [address] [facility], [place], [address], 05/26/2025 20:10:45 05/18/2005/22/2025 SPINA L MUSCU LAR ATROP HY (SMA) interpretati on COMMEN T Negat shagufta Resul ts Disor ders (Gene ) Resul t Inter preta tion Spina l muscu lar NEGAT SHAGUFTA : 2 This resul t reduc es, atrop hy SMN1 copie s of but does not NM_00 0344. 4 SMN1; elimi sravan, the risk c.*3+ 80T>G to be a tiffanie er. risk varia nt Risk: NOT at an not prese nt. incre ased risk for an affec mercy pregn juan manuel. Not Available [facility] ([facility]) [address] [facility], [place], [address], 05/26/2025 20:10:45 05/18/2005/22/2025 SPINA L MUSCU LAR ATROP HY (SMA) recommendati ons COMMEN T If the above resul t is posit shagufta, claudia ic couns brianna is recom sulaiman d to discu ss the poten tial clini [place] and/o r repro ducti ve impli catio ns, as well as recom menda tions for testi ng famil y membe rs and, when appli cable , this indiv idual 's partn er. Claudia ic couns brianna servi jabari are avail able. To acces s [facility]ia ic Couns janeth plecheyenne e visit https ://[facility] orp.c om/ge netic -coun aryan g or call [phone]) -[facility] ([phone]). Not Available [facility] ([facility]) [address] [facility], [place], [address], 05/26/2025 20:10:45 05/18/2005/22/2025 SPINA L MUSCU LAR ATROP HY (SMA) additional clinicalinfo rmation COMMEN T Spina l muscu lar atrop hy (SMA) is an autos omal reces sive neuro degen erati ve disor clair with varia ble age at onset and sever ity, wolfgang cteri zed by progr essiv e degen erati on of the lower motor neuro ns in the spina l cord and brain stem, leadi ng to muscl e weakn ess, and in its most commo n form, respi rator y failu re by age two. Compl icati ons of SMA may inclu de poor weigh t gain, sleep diffi culti es, pneum onia, scoli osis, and joint defor mitie s. In sever leonid affec mercy indiv idual s, abnor mal ultra sound findi ngs may inclu de conge nital joint contr actur es, polyh ydram nios, and decre ased movem ent. (Janell nthen tolliver, PMID: [id number] 59). Treat ment is suppo rtive . Tarpaddy madrid thera pies may be avail able for some indiv idual s. Appro ximat leonid 94% of affec mercy indiv idual s have 0 copie s of the SMN1 gene; in these indiv idual s, an incre ase in the numbe r of copie s of the SMN2 gene corre lates with reduc ed disea se sever ity (Vivian Benson, PMID: [id number]). Indiv idual s with one copy of the SMN1 gene are predi cted to be tiffanie ers of SMA; those with two or more copie s have a reduc ed tiffanie er risk. For indiv idual s with two copie s of the SMN1 gene, the prese nce or absen ce of the varia nt c.*3+ 80T>G corre lates with an incre ased or decre ased risk, respe ctive ly, of being a silen t tiffanie er (2+0) . Not Available [facility] ([facility]) [address] [facility], [place], [address], 05/26/2025 20:10:45 05/18/2005/22/2025 SPINA L MUSCU LAR ATROP HY (SMA) comments COMMEN T This inter preta tion is based on the clini [place] infor matio n provi ded and the curre nt under stand ing of the molec ular claudia ics of the disor clair(s ) teste d. Infor matio n about the disor clair(s ) teste d is avail able at https ://wo [facility] orp.c om. Not Available [facility] ([facility]) [address] [facility], [place], [address], 05/26/2025 20:10:45 05/18/2005/22/2025 SPINA L MUSCU LAR ATROP HY (SMA) methods/limi tations COMMEN T Spina l muscu lar atrop hy: The copy numbe r of SMN1 exon 7 is asses sed relat shagufta to inter nal stand shantanu refer ence genes by quant itati ve polym erase chain react ion (qPCR ). A mathe matic al algor ithm calcu lates 0, 1, 2 and 3 copie s with stati stica l confi dence . In speci mens and speci mens with 0 or 1 copie s, the prime r and probe branden ng sites are seque nced to rule out varia nts that could inter fere with copy numbe r re sis. SMN2 copy numbe r is asses sed by digit al dropl et PCR re sis relat shagufta to an inter nal stand shantanu refer ence gene in sampl es with no copie s of SMN1. For tiffanie er scree julito, when two copie s of SMN1 are detec mercy, allel ic discr imina tion qPCR targe earnest c.*3+ 80T>G in SMN1 is perfo rmed. Limit ation s: Techn ologi es used do not detec t germl ine mosai cism and do not rule out the prese nce of large chrom osoma l aberr ation s inclu ding rearr angem ents and gene fusio ns, or varia nts in regio ns or genes not inclu ded in this test, or possi ble inter /intr ageni c inter actio ns betwe en varia nts, or repea t expan sions . Varia nt class ifica tion and/o r inter preta tion may ryder e over time if more infor matio n becom es avail able. False posit shagufta or false negat shagufta resul ts may occur for reaso ns that inclu de: rare claudia ic varia nts, sex chrom osome abnor malit ies, pseud ogene inter feren ce, blood trans fusio ns, bone marro w trans plant ation , somat ic or tissu e-spe cific mosai cism, misla beled sampl es, or michael eous repre senta tion of famil y relat ionsh ips. This test was devel oped and its perfo rmanc e wolfgang cteri stics deter mined by [employer] Claudia ic Labor [employer]. It has not been clear ed or appro ifeanyi by the Food and Drug Admin istra tion. Esote pedro Claudia ic [employer] is a subsi diary of Labor ator[employer]Action Technology Corp Corpo ratio n of James estelle Estrada ngs, using the brand [employer] rp. Not Available [facility] ([facility]) [address] [facility], [place], [address], 05/26/2025 20:10:45 05/18/2005/22/2025 SPINA L MUSCU LAR ATROP HY (SMA) information table COMMEN T Spina l muscu lar atrop hy risk reduc tions for indiv idual s with no famil y histo ry Popul ati Detec t Pre-t e Post- ida Post- te on ion st t risk st rate tiffanie e of risk (Copy r being a of numbe r risk tiffanie er being + with 2 a SNP) copie s tiffanie er with 3 copie s POSIT SHAGUFTA NEGAT SHAGUFTA for the for the c.*3+ 80T c.*3+ 80T >G SNP >G SNP Ashke marquis 94% 1 in 1 in 7 1 in 1 in i 62 1017 5400 Jewis h 94% 1 in 1 in 32 1 in 1 in 50 701 5600 Black 91% 1 in 1 in 35 1 in 1 in 59 342 4200 Hispa alcira 94% 1 in 1 in 42 1 in 1 in 48 784 5400 White 95% 1 in 1 in 34 1 in 1 in 45 880 5600 Mixed For or couns e other ling ethni c purpo s backg rou es, nd consi d er using the ethni c backg r ound with the most conse r vativ e risk estim a ida. inclu oksana tiffanie ers who are silen t tiffanie ers (2+0) and tiffanie ers with a patho gen ic varia nt not detec mercy in this assay Jose Raul. PMID [id number] 085 ; Paolo. PMID 36765 250 ; Sugar man . PMID 92420 307 Not Available [facility] ([facility]) [address] [facility], [place], [address], 05/26/2025 20:10:45 05/18/20 25 05/22/2025 SPINA L MUSCU LAR ATROP HY (SMA) references COMMEN T Jesus colón JL, Bettina candelario C, Haja tucker A et al. Adden dum: Techn ical stand ards and guide lines for spina l muscu lar atrop hy testi ng. Claudia Med 23, 8175 (2020 ). [Adde ndum to PMID: 75834 580] Prior TW, Bella ME, Anni Schneider. Spina l Muscu lar Atrop hy. 1999Sep 29 (Upda mercy 2019Aug 04). In: Yinka MP, Araceli jasso HH, Red RA, et al., chandu rs. GeneR maria victoria molina(R) [Inte rnet] . PMID: [id number] 526 Not Available [facility] ([facility]) [address] [facility], [place], [address], 05/26/2025 20:10:45 05/18/2005/22/2025 SPINA L MUSCU LAR ATROP HY (SMA) director review/relea se COMMEN T [place] nent Type Perfo rmed At [employer] Dire tor Techn ical Esote pedro Claudia ic Naty Strickland, PhD, compo nent, [employer], FAC proce ssing [address] , [place], [address] Techn ical Esote pedro Claudia ic Naty Strickland, PhD, compo nent, Labor atori [employer], FACMG re sis [address] , [place], [address] Profe julio cesar al Esote pedro Claudia ic Naty Strickland, PhD, compo nent [employer] atori [employer], FACMG [address] [place], [address] Mattie valles relea sed by Amrik Hua , PhD, FAC Not Available [facility] ([facility]) [address] [facility], [place], [address], 05/26/2025 20:10:45 05/18/2005/22/2025 SPINA L MUSCU LAR ATROP HY (SMA) pdf . Not Available [facility] ([facility]) [address] [facility], [place], [address], 05/26/2025 20:10:45 05/18/2005/20/2025 RESUL T result 1 Commen t Mixed uroge nital demarco 50,00 0-100 ,000 colon y formi ng units per mL Not Available [facility] ([facility]) [address] [facility], [place], [address], 05/26/2025 20:10:46 05/18/2005/18/2025 pregn juan manuel test, urine HCG positi ve Not Available In-Office Order Internal Use Only DO Not Attach Compendium DO Not Attach Compendium, Do Not Delete/merge, 05/18/2025 11:38:42 05/18/2005/18/2025 urina lysis , dipst ick Leukocytes Trace Not Available In-Offi ce Order Internal Use Only DO Not Attach Compendium DO Not Attach Compendium, Do Not Delete/merge, 05/18/2025 11:37:14 05/18/2005/18/2025 urina lysis , dipst ick Nitrite negati ve Not Available In-Office Order Internal Use Only DO Not Attach Compendium DO Not Attach Compendium, Do Not Delete/merge, 05/18/2025 11:37:14 05/18/2005/18/2025 urina lysis , dipst ick Urobilinogen .2 Not Available In-Of fice Order Internal Use Only DO Not Attach Compendium DO Not Attach Compendium, Do Not Delete/merge, 05/18/2025 11:37:14 05/18/2005/18/2025 urina lysis , dipst ick Protein Trace Not Available In-Office Order Internal Use Only DO Not Attach Compendium DO Not Attach Compendium, Do Not Delete/merge, 05/18/2025 11:37:14 05/18/2005/18/2025 urina lysis , dipst ick pH 5.5 Not Available In-Office Order Internal Use Only DO Not Attach Compendium DO Not Attach Compendium, Do Not Delete/merge, 05/18/2025 11:37:14 05/18/2005/18/2025 urina lysis , dipst ick Blood Non-He molyze d: Trace Not Available In-Office Order Internal Use Only DO Not Attach Compendium DO Not Attach Compendium, Do Not Delete/merge, 05/18/2025 11:37:14 05/18/2005/18/2025 urina lysis , dipst ick Specific Index 1.025 Not Available In-Off ice Order Internal Use Only DO Not Attach Compendium DO Not Attach Compendium, Do Not Delete/merge, 05/18/2025 11:37:14 05/18/2005/18/2025 urina lysis , dipst ick Ketone Negati ve Not Available In-Office Order Internal Use Only DO Not Attach Compendium DO Not Attach Compendium, Do Not Delete/merge, 05/18/2025 11:37:14 05/18/2005/18/2025 urina lysis , dipst ick Bilirubin Negati ve Not Available In-Office Order Internal Use Only DO Not Attach Compendium DO Not Attach Compendium, Do Not Delete/merge, 05/18/2025 11:37:14 05/18/2005/18/2025 urina lysis , dipst ick Glucose Negati ve Not Available In-Office Order Internal Use Only DO Not Attach Compendium DO Not Attach Compendium, Do Not Delete/merge, 05/18/2025 11:37:14 05/19/2005/19/2025 edinb urgh postn atal depre ssion scale * Score 12 Not Available In-Office Order Internal Use Only DO Not Attach Compendium DO Not Attach Compendium, Do Not Delete/merge, 05/19/2025 16:22:32 06/15/2006/11/2025 US, obste tric, 1st trime ster No observ ation record ed. [facility] [address], [place], [address], 06/23/2025 11:14:48 Result Notes None recorded. Problems Name Problem SNOMED Code Status Onset Date Resolution Date Notes Provider Name and Address Organization Details Recorded Time Bacterial vaginosis 065070717 Active 2024 Vernon Brady MD Attn: Norijohnnie joseph,[address] [facility], [place], [address], [facility] - SIF 15:23:42 39140509 Active 2024 Sarah Melendrez MA null, [place] 11:39:01 History of syncope 088748400657 109 Active 2024 Not eating well, given loss of appetite. Last episode in the beginning of RYANNE ADAMS MD Attn: Jemal joseph,[address] [place], [address], [facility] - [place] 09:59:21 Past history of miscarria ge 797928389 Active 2024 Patient has history of 2 prior first trimester loss of First miscarria ge - bleeding, and cramping -within 5-6 weeksSeco nd miscarria ge - bleeding and cramping within 2 weeks of finding RYANNE ADAMS MD Attn: Jemal joseph,[address] [facility], [place], [address], [facility] - [place] 09:59:24 Sickle cell trait 69365380 Active 2024 Cali Levine MD Attn: Jemal joseph,[address] [place], [address], [place] - [place] 5 18:17:41 History of chlamydia l infection 801606771 Active 2024 Cali Levine MD Attn: Jemal joseph,[address] [place], [address], [facility] - [facility] 5 18:17:53 Marijuana user 620910760 Active 2024 Cali Levine MD Attn: Jemal joseph,[address] [place], [address] 18:21:00 Problem Notes None recorded. Procedures Surgical History Date Name Laterality Status Provider Name and Address Organization Details Recorded Time 05/18/2025 Date of Last Pap Smear completed Sarah Melendrez MA [facility] 05/18/2025 11:36:19 Imaging Results None recorded. Procedure Notes None recorded. Medical Equipment None Reported. Allergies No known drug allergies Medications Name Sig Start Date Stop Date Status Note LastModified by Organization Details LastModified Time azithromyci n 250 mg tablet TAKE ALL 4 TABLETS TOGETHER A SINGLE DOSE 07/20 completed Not Available Not Available Not Available metronidazo le 500 mg tablet Take 1 tablet twice a day by oral route for 7 days. 01/14 completed Not Available Not Available Not Available azithromyci n 500 mg tablet TAKE 2 TABLETS BY MOUTH ONCE. HAVE PARTNER TAKE TWO TABLETS BY MOUTH ONCE active Not Available Not Available No t Available chlorhexidi ne gluconate 0.12 % mouthwash TAKE 15 MUCOUS MEMBRANE MILLILITE RS 2 TIMES A DAY. SWISH AND SPIT. active Not Available Not Available No t Available Dificid 200 mg tablet active Not Available Not Available No t Available Vitals Date Recorded Body height Body mass index (BMI) Body weight Heart rate Systolic And Diastolic Provider Name and Address Organization Details Last Updated DateTime 05/18/2025 172.72 cm 21.1 kg/m2 79349.62 g 97 /min 106/66 mm[Hg] Sarah Melendrez MA [facility] 05/18/2025 11:41:43 Social History Question Answer Notes LastModified by Organizat ion Details LastModified Time Tobacco Smoking Status Never Smoker Ting Gallardo MA null, [facility] 12/26/2024 09:29:24 What Is Your Level Of Caffeine Consumption? None Information not available 05/18/2025 What Was The Date Of Your Most Recent Tobacco Screening? 07/20/2025 Information not available 07/20/2025 What Is Your Relationship Status? Single Information not available 12/26/2024 Are You Sexually Active? Yes Information not available 12/26/2024 Has Tobacco Cessation Counseling Been Provided? Yes Information not available 06/15/2025 On What Date Was Tobacco Cessation Counseling Provided? 07/20/2025 Information not available 07/20/2025 Sex: Female Functional Status Question Answer Note LastModified by Organizat ion Details LastModified Time Do you use any illicit or recreational drugs? Yes adriana smoke- just stopped on 07/06/25-ks rma Information not available 07/20/2025 Do you or have you ever used any other forms of tobacco or nicotine? Yes Information not available 12/26/2024 What is your level of alcohol consumption? None Information not available 12/26/2024 Do you or have you ever used e-cigarettes or vape? Former user of electronic cigarettes Information not available 05/18/2025 Mental Status None recorded. Family History Relationship Description Onset Age of this Age Resolved Age Notes LastModified by Organization Details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
--- OUTSIDE RECORDS SUMMARY | 2025-07-25 14:52 | XMS_ITS | Continuity of Care Document ---
Author Organization [facility] ([facility]EW[facility]) Address [address] [place] [id number] Assessment No assessment recorded. Plan of Treatment Reminders Order Date Submit Date Provider Last Modified By Organization Details Last Modified Time Details Appointments None recorded. Lab urinalysis, dipstick 2024 025 In-Office Order, Internal Use Only DO Not Attach Compendium DO Not Attach Compendium, Do Not Delete/merge, [id number] 12:22:12 aneuploidy risk and X & Y analysis, chromosome specific circulating cell free (CCF) DNA, maternal serum 2024 025 [facility], [address] [place] [address], [address], 16:20:07 Referral None recorded. Procedures None recorded. Surgeries None recorded. Imaging None recorded. Medication Orders None recorded. Patient TargetsNo targets recorded. Patient Instructions Encounter Date Encounter Id Patient Instructions Last Modified By Organization Details Last Modified Time 06/15/2025 [id number] I was present an d available in the clinic during the encounter. I discussed the patient's history, exam findings, and plan with the resident physician and agree with the assessment and plan as documented. Cali Levine MD [facility]2 Not available 06/16/2025 18:14:28 Reason for Referral None Reported. Results Created Date Observation Date Name Description Value Unit Range Abnormal Flag Note LastModifiedBy Organization Detail LastModifiedTime 05/18/2005/18/2025 18218 2 9+OXY CODON E+ENROLLMENT MANAGEMENT COORDINATOR -SCR please note: COMMEN T This assay [...] mercy outco me. Email : [email or web address] [email or web address] Phone : [phone] Not Available [facility] ([facility]) [address] [place], [address], 05/19/2025 20:09:55 05/18/2005/19/2025 [id number] 2 9+OXY CODON E+ENROLLMENT MANAGEMENT COORDINATOR -SCR amphetamines screen, urine NEGATI VE NG/mL cutoff =1000 Not Available [facility] ([facility]) [address] [place], [address], 05/19/2025 20:09:55 05/18/20 25 05/19/2025 [id number] 2 9+OXY CODON E+ENROLLMENT MANAGEMENT COORDINATOR -SCR barbiturates screen, urine NEGATI VE NG/mL cutoff =200 Not Available [facility] ([facility]) [address] [place], [address], 05/19/2025 20:09:55 05/18/2005/19/2025 [id number] 2 9+OXY CODON E+ENROLLMENT MANAGEMENT COORDINATOR -SCR benzodiazepi gladis screen, urine NEGATI VE NG/mL cutoff =200 Not Available [facility] ([facility]) [address] [place], [address], 05/19/2025 20:09:55 05/18/20 25 05/19/2025 [id number] 2 9+OXY CODON E+ENROLLMENT MANAGEMENT COORDINATOR -SCR cannabinoid screen, urine POSITI VE NG/mL cutoff =20 abnormal Not Available [facility] ([facility]) [address] [place], [address], 05/19/2025 20:09:55 05/18/20 25 05/19/2025 [id number] 2 9+OXY CODON E+ENROLLMENT MANAGEMENT COORDINATOR -SCR cocaine (metab.) screen, urine NEGATI VE NG/mL cutoff =300 Not Available [facility] ([facility]) [address] [place], [address], 05/19/2025 20:09:55 05/18/20 25 05/19/2025 [id number] 2 9+OXY CODON E+ENROLLMENT MANAGEMENT COORDINATOR -SCR opiate screen, urine NEGATI VE NG/mL cutoff =300 Opiat e test inclu oksana Codei ne, Morph ine, Olympia morph one, Olympia codon e. Not Available [facility] ([facility]) [address] [place], [address], 05/19/2025 20:09:55 05/18/20 25 05/19/2025 [id number] 2 9+OXY CODON E+ENROLLMENT MANAGEMENT COORDINATOR -SCR oxycodone/ox ymorphone, urine NEGATI VE NG/mL cutoff =100 Test inclu oksana Oxyco done and Oxymo rphon e Not Available [facility] ([facility]) [address] [place], [address], 05/19/2025 20:09:55 05/18/20 25 05/19/2025 [id number] 2 9+OXY CODON E+ENROLLMENT MANAGEMENT COORDINATOR -SCR phencyclidin e screen, urine NEGATI VE NG/mL cutoff =25 Not Available [facility] ([facility]) [address] [place], [address], 05/19/2025 20:09:55 05/18/20 25 05/19/2025 [id number] 2 9+OXY CODON E+ENROLLMENT MANAGEMENT COORDINATOR -SCR methadone screen, urine NEGATI VE NG/mL cutoff =300 Not Available [facility] ([facility]) [address] [place], [address], 05/19/2025 20:09:55 05/18/2005/19/2025 [id number] 2 9+OXY CODON E+ENROLLMENT MANAGEMENT COORDINATOR -SCR propoxyphene screen, urine NEGATI VE NG/mL cutoff =300 Not Available [facility] ([facility]) [address] [facility], [place], [address], 05/19/2025 20:09:55 05/18/2005/19/2025 [id number] 2 9+OXY CODON E+ENROLLMENT MANAGEMENT COORDINATOR -SCR creatinine, urine 181.6 mg/dL 20.0-3 00.0 Not Available [facility] ([facility]) [address] [facility], [place], [address], 05/19/2025 20:09:55 05/18/2005/19/2025 [id number] 2 9+OXY CODON E+ENROLLMENT MANAGEMENT COORDINATOR -SCR pH, urine 5.3 4.5-8. 9 Not Available [facility] ([facility]) [address] [facility], [place], [address], 05/19/2025 20:09:55 05/18/2005/19/2025 NUSWA B VAGIN ITIS PLUS (VG+) atopobium vaginae MODERA TE - 1 score Not Available [facility] ([facility]) [address] [facility], [place], [address], 05/20/2025 04:11:05 05/18/2005/19/2025 NUSWA B VAGIN ITIS PLUS (VG+) bvab 2 LOW - 0 score Not Available [facility] ([facility]) [address] [facility], [place], [address], 05/20/2025 04:11:05 05/18/2005/19/2025 NUSWA B VAGIN ITIS PLUS (VG+) megasphaera [...] prese nce of BV. Not Available [facility] ([facility]) [address] [facility], [place], [address], 05/20/2025 04:11:05 05/18/2005/19/2025 NUSWA B VAGIN ITIS PLUS (VG+) hua albicans, ROZ NEGATI VE negati ve Not Available [facility] ([facility]) [address] [place], [address], 05/20/2025 04:11:05 05/18/2005/19/2025 NUSWA B VAGIN ITIS PLUS (VG+) hua glabrata, ROZ NEGATI VE negati ve Not Available [facility] ([facility]) [address] [facility], [place], [address], 05/20/2025 04:11:05 05/18/2005/20/2025 NUSWA B VAGIN ITIS PLUS (VG+) trich vag by ROZ NEGATI VE negati ve Not Available [facility] ([facility]) [address] [place], [address], 05/20/2025 04:11:05 05/18/2005/20/2025 NUSWA B VAGIN ITIS PLUS (VG+) chlamydia trachomatis, ROZ POSITI VE negati ve abnormal Not Available [facility] ([facility]) [address] [place], [address], 05/20/2025 04:11:05 05/18/2005/20/2025 NUSWA B VAGIN ITIS PLUS (VG+) neisseria gonorrhoeae, ROZ NEGATI VE negati ve Not Available [facility] ([facility]) [address] [place], [address], 05/20/2025 04:11:05 05/18/2005/22/2025 IGP,R FX APT HPV ASCU, 16/18 ,45 diagnosis: FARIBA Bello NEGDAWN SHAGUFTA FOR INTRA EPITH ELIAL LESIO N OR MALKEN JENA . Not Available [facility] ([facility]) [address] [place], [address], 05/22/2025 16:23:15 05/18/2005/22/2025 IGP,R FX APT HPV ASCU, 16/18 ,45 specimen adequacy: FARIBA Bello Satis facto ry for evalu ation . Endoc ervic al and/o r squam ous metap lasti c cells (endo cervi orville compo nent) are prese nt. Not Available [facility] ([facility]) [address] [place], [address], 05/22/2025 16:23:15 05/18/2005/22/2025 IGP,R FX APT HPV ASCU, 16/18 ,45 clinician provided ICD10: FARIBA Bello Z34.9 1 Not Available [facility] ([facility]) [address] [place], [address], 05/22/2025 16:23:15 05/18/2005/22/2025 IGP,R FX APT HPV ASCU, 16/18 ,45 performed by: FARIBA burris, Cytol ogist (ASCP ) Not Available [facility] ([facility]) [address] [place], [address], 05/22/2025 16:23:15 05/18/2005/22/2025 IGP,R FX APT HPV ASCU, 16/18 ,45 . . Not Available [facility] ([facility]) [address] [place], [address], 05/22/2025 16:23:15 05/18/2005/22/2025 IGP,R FX APT HPV ASCU, 16/18 ,45 note: COMMEN T The Pap smear is a scree julito [...] ts do occur . Not Available [facility] ([facility]) [address] [place], [address], 05/22/2025 16:23:15 05/18/2005/22/2025 IGP,R FX APT HPV ASCU, 16/18 ,45 test methodology: COMMEN T This liqui d based ThinP rep(R ) pap test was inter prete d using the Holog ic(R) Geniu s(TM) Cervi orville Algor ithm whole slide imagi ng syste m. Not Available [facility] ([facility]) [address] [place], [address], 05/22/2025 16:23:15 05/18/2005/22/2025 IGP,R FX APT HPV ASCU, 16/18 ,45 . COMMEN T The HPV DNA refle x crite neeraj were not met with this speci men resul t there fore, no HPV testi ng was perfo rmed. Not Available [facility] ([facility]) [address] [place], [address], 05/22/2025 16:23:15 05/18/2005/19/2025 HGB FRACT IONAT ION CASCA DE HGB F 1.7 % 0.0-2. 0 Not Available [facility] ([facility]) [address] [place], [address], 05/26/2025 20:10:41 05/18/20 25 05/19/2025 HGB FRACT IONAT ION CASCA DE HGB A 56.8 % 96.4-9 8.8 below low normal Not Available [facility] ([facility]) [address] [facility], [place], [address], 05/26/2025 20:10:41 05/18/2005/19/2025 HGB FRACT IONAT ION CASCA DE HGB A2 2.8 % 1.8-3. 2 Not Available [facility] ([facility]) [address] [facility], [place], [address], 05/26/2025 20:10:41 05/18/2005/19/2025 HGB FRACT IONAT ION CASCA DE HGB S 38.7 % 0.0 above high normal Not Available [facility] ([facility]) [address] [facility], [place], [address], 05/26/2025 20:10:41 05/18/2005/19/2025 HGB FRACT IONAT ION CASCA DE interpretati on: COMMEN T Refle x to Hgb Solub ility indic ated for confi rmati on. Not Available [facility] ([facility]) [address] [facility], [place], [address], 05/26/2025 20:10:41 05/18/20 25 05/19/2025 HGB SOLUB ILITY HGB solubility Positi ve negati ve abnormal Not Available [facility] ([facility]) [address] [facility], [place], [address], 05/26/2025 20:10:42 05/18/2005/19/2025 HGB SOLUB ILITY final interpretati on: Commen [...] A2 1.8 - 4.0% Not Available [facility] ([facility]) [address] [facility], [place], [address], 05/26/2025 20:10:42 05/18/20 25 05/19/2025 INTER PRETA TION: interpretati on: Commen t Not infec mercy with HCV unles s early or acute infec tion is suspe cted (whic h may be delay ed in an immun ocomp romis ed indiv idual ), or other evide nce exist s to indic ate HCV infec tion. Not Available [facility] ([facility]) [address] [facility], [place], [address], 05/26/2025 20:10:43 05/18/20 25 05/19/2025 PREGN JUAN MANUEL, INITI AL SCREE N HBsAg screen NEGATI VE negati ve Not Available [facility] ([facility]) [address] [place], [address], 05/26/2025 20:10:43 05/18/20 25 05/19/2025 PREGN JUAN MANUEL, INITI AL SCREE N HCV Ab NON REACTI VE nonrea ctive Not Available [facility] ([facility]) [address] [place], [address], 05/26/2025 20:10:43 05/18/20 25 05/19/2025 PREGN JUAN MANUEL, INITI AL SCREE N RPR NON REACTI VE nonrea ctive Not Available [facility] ([facility]) [address] [place], [address], 05/26/2025 20:10:43 05/18/20 25 05/19/2025 PREGN JUAN MANUEL, INITI AL SCREE N rubella antibodies, IgG 11.00 index immune >0.99 Non-i mmune <0.90 Equiv ocal 0.90 - 0.99 Immun e >0.99 Not Available [facility] ([facility]) [address] [facility], [place], [address], 05/26/2025 20:10:43 05/18/20 25 05/19/2025 PREGN JUAN MANUEL, INITI AL SCREE N ABO grouping A Not Available [facility] ([facility]) [address] [facility], [place], [address], 05/26/2025 20:10:43 05/18/2005/19/2025 PREGN JUAN MANUEL, INITI AL SCREE N Rh factor POSITI VE Pleas e note: Prior recor ds for this patie nt's ABO / Rh type are not avail able for addit ional verif icati on. Not Available [facility] ([facility]) [address] [facility], [place], [address], 05/26/2025 20:10:43 05/18/20 25 05/19/2025 PREGN JUAN MANUEL, INITI AL SCREE N antibody screen NEGATI VE negati ve Not Available [facility] ([facility]) [address] [facility], [place], [address], 05/26/2025 20:10:43 05/18/2005/19/2025 PREGN JUAN MANUEL, INITI AL SCREE N HIV Ab/P24 Ag screen NON REACTI VE nonrea ctive HIV-1 /HIV- 2 antib odies and HIV-1 p24 antig en were NOT detec mercy. There is no labor atory evide nce of HIV infec tion. HIV Negat shagufta Not Available [facility] ([facility]) [address] [facility], [place], [address], 05/26/2025 20:10:43 05/18/20 25 05/19/2025 PREGN JUAN MANUEL, INITI AL SCREE N WBC 9.3 x10e3 /uL 3.4-10 .8 Not Available [facility] ([facility]) [address] [facility], [place], [address], 05/26/2025 20:10:43 05/18/20 25 05/19/2025 PREGN JUAN MANUEL, INITI AL SCREE N RBC 4.14 x10e6 /uL 3.77-5 .28 Not Available [facility] ([facility]) [address] [facility], [place], [address], 05/26/2025 20:10:43 05/18/2005/19/2025 PREGN JUAN MANUEL, INITI AL SCREE N hemoglobin 11.1 g/dL 11.1-1 5.9 Not Available [facility] ([facility]) [address] [facility], [place], [address], 05/26/2025 20:10:43 05/18/2005/19/2025 PREGN JUAN MANUEL, INITI AL SCREE N hematocrit 35.8 % 34.0-4 6.6 Not Available [facility] ([facility]) [address] [facility], [place], [address], 05/26/2025 20:10:43 05/18/20 25 05/19/2025 PREGN JUAN MANUEL, INITI AL SCREE N MCV 87 fL 79-97 Not Available [facility] ([facility]) [address] [place], [address], 05/26/2025 20:10:43 05/18/20 25 05/19/2025 PREGN JUAN MANUEL, INITI AL SCREE N MCH 26.8 pg 26.6-3 3.0 Not Available [facility] ([facility]) [address] [place], [address], 05/26/2025 20:10:43 05/18/20 25 05/19/2025 PREGN JUAN MANUEL, INITI AL SCREE N MCHC 31.0 g/dL 31.5-3 5.7 below low normal Not Available [facility] ([facility]) [address] [place], [address], 05/26/2025 20:10:43 05/18/20 25 05/19/2025 PREGN JUAN MANUEL, INITI AL SCREE N RDW 13.0 % 11.7-1 5.4 Not Available [facility] ([facility]) [address] [facility], [place], [address], 05/26/2025 20:10:43 05/18/20 25 05/19/2025 PREGN JUAN MANUEL, INITI AL SCREE N platelets 305 x10e3 /uL 150-45 0 Not Available [facility] ([facility]) [address] [facility], [place], [address], 05/26/2025 20:10:43 05/18/2005/19/2025 PREGN JUAN MANUEL, INITI AL SCREE N neutrophils 76 % notest ab. Not Available [facility] ([facility]) [address] [facility], [place], [address], 05/26/2025 20:10:43 05/18/20 25 05/19/2025 PREGN JUAN MANUEL, INITI AL SCREE N lymphs 19 % notest ab. Not Available [facility] ([facility]) [address] [facility], [place], [address], 05/26/2025 20:10:43 05/18/20 25 05/19/2025 PREGN JUAN MANUEL, INITI AL SCREE N monocytes 4 % notest ab. Not Available [facility] ([facility]) [address] [facility], [place], [address], 05/26/2025 20:10:43 05/18/20 25 05/19/2025 PREGN JUAN MANUEL, INITI AL SCREE N eos 1 % notest ab. Not Available [facility] ([facility]) [address] [place], [address], 05/26/2025 20:10:43 05/18/20 25 05/19/2025 PREGN JUAN MANUEL, INITI AL SCREE N basos 0 % notest ab. Not Available [facility] ([facility]) [address] [facility] [place], [address], 05/26/2025 20:10:43 05/18/20 25 05/19/2025 PREGN JUAN MANUEL, INITI AL SCREE N neutrophils (absolute) 7.0 x10e3 /uL 1.4-7. 0 Not Available [facility] ([facility]) [address] [facility], [place], [address], 05/26/2025 20:10:43 05/18/20 25 05/19/2025 PREGN JUAN MANUEL, INITI AL SCREE N lymphs (absolute) 1.8 x10e3 /uL 0.7-3. 1 Not Available [facility] ([facility]) [address] [place], [address], 05/26/2025 20:10:43 05/18/20 25 05/19/2025 PREGN JUAN MANUEL, INITI AL SCREE N monocytes(ab solute) 0.4 x10e3 /uL 0.1-0. 9 Not Available [facility] ([facility]) [address] [place], [address], 05/26/2025 20:10:43 05/18/20 25 05/19/2025 PREGN JUAN MANUEL, INITI AL SCREE N eos (absolute) 0.1 x10e3 /uL 0.0-0. 4 Not Available [facility] ([facility]) [address] [place], [address], 05/26/2025 20:10:43 05/18/20 25 05/19/2025 PREGN JUAN MANUEL, INITI AL SCREE N baso (absolute) 0.0 x10e3 /uL 0.0-0. 2 Not Available [facility] ([facility]) [address] [place], [address], 05/26/2025 20:10:43 05/18/20 25 05/19/2025 PREGN JUAN MANUEL, INITI AL SCREE N immature granulocytes 0 % notest ab. Not Available [facility] ([facility]) [address] [facility], [place], [address], 05/26/2025 20:10:43 05/18/2005/19/2025 PREGN JUAN MANUEL, INITI AL SCREE N immature grans (abs) 0.0 x10e3 /uL 0.0-0. 1 Not Available [facility] ([facility]) [address] [facility], [place], [address], 05/26/2025 20:10:43 05/18/2005/19/2025 PREGN JUAN MANUEL, INITI AL SCREE N specific gravity 1.021 1.005- 1.030 Not Available [facility] ([facility]) [address] [facility], [place], [address], 05/26/2025 20:10:43 05/18/2005/19/2025 PREGN JUAN MANUEL, INITI AL SCREE N pH 5.5 5.0-7. 5 Not Available [facility] ([facility]) [address] [facility], [place], [address], 05/26/2025 20:10:43 05/18/2005/19/2025 PREGN JUAN MANUEL, INITI AL SCREE N urine-color YELLOW yellow Not Available [facility] ([facility]) [address] [facility], [place], [address], 05/26/2025 20:10:43 05/18/20 25 05/19/2025 PREGN JUAN MANUEL, INITI AL SCREE N appearance CLEAR clear Not Available [facility] ([facility]) [address] [facility], [place], [address], 05/26/2025 20:10:43 05/18/20 25 05/19/2025 PREGN JUAN MANUEL, INITI AL SCREE N WBC esterase NEGATI VE negati ve Not Available [facility] ([facility]) [address] [facility], [place], [address], 05/26/2025 20:10:43 05/18/2005/19/2025 PREGN JUAN MANUEL, INITI AL SCREE N protein NEGATI VE negati ve/tra ce Not Available [facility] ([facility]) [address] [place], [address], 05/26/2025 20:10:43 05/18/20 25 05/19/2025 PREGN JUAN MANUEL, INITI AL SCREE N glucose NEGATI VE negati ve Not Available [facility] ([facility]) [address] [place], [address], 05/26/2025 20:10:43 05/18/2005/19/2025 PREGN JUAN MANUEL, INITI AL SCREE N ketones TRACE negati ve abnormal Not Available [facility] ([facility]) [address] [place], [address], 05/26/2025 20:10:43 05/18/2005/19/2025 PREGN JUAN MANUEL, INITI AL SCREE N occult blood NEGATI VE negati ve Not Available [facility] ([facility]) [address] [place], [address], 05/26/2025 20:10:43 05/18/20 25 05/19/2025 PREGN JUAN MANUEL, INITI AL SCREE N bilirubin NEGATI VE negati ve Not Available [facility] ([facility]) [address] [place], [address], 05/26/2025 20:10:43 05/18/2005/19/2025 PREGN JUAN MANUEL, INITI AL SCREE N urobilinogen ,semi-qn 0.2 mg/dL 0.2-1. 0 Not Available [facility] ([facility]) [address] [place], [address], 05/26/2025 20:10:43 05/18/20 25 05/19/2025 PREGN JUAN MANUEL, INITI AL SCREE N nitrite, urine NEGATI VE negati ve Not Available [facility] ([facility]) [address] [facility], [place], [address], 05/26/2025 20:10:43 05/18/2005/19/2025 PREGN JUAN MANUEL, INITI AL SCREE N microscopic examination COMMEN T Micro scopi c follo ws if indic ated. Not Available [facility] ([facility]) [address] [facility], [place], [address], 05/26/2025 20:10:43 05/18/2005/19/2025 PREGN JUAN MANUEL, INITI AL SCREE N microscopic examination SEE BELOW: Micro scopi c was indic ated and was perfo rmed. Not Available [facility] ([facility]) [address] [facility], [place], [address], 05/26/2025 20:10:43 05/18/2005/20/2025 PREGN JUAN MANUEL, INITI AL SCREE N chlamydia trachomatis, ROZ POSITI VE negati ve abnormal Not Available [facility] ([facility]) [address] [facility], [place], [address], 05/26/2025 20:10:43 05/18/2005/20/2025 PREGN JUAN MANUEL, INITI AL SCREE N neisseria gonorrhoeae, ROZ NEGATI VE negati ve Not Available [facility] ([facility]) [address] [place], [address], 05/26/2025 20:10:43 05/18/2005/20/2025 PREGN JUAN MANUEL, INITI AL SCREE N urine culture,pren atal, w/gbs FINAL REPORT Not Available [facility] ([facility]) [address] [place], [address], 05/26/2025 20:10:43 05/18/20 25 05/19/2025 MICRO SCOPI C EXAMI NATIO N WBC 0-5 /hpf 0-5 Not Available [facility] ([facility]) [address] [facility], [place], [address], 05/26/2025 20:10:44 05/18/2005/19/2025 MICRO SCOPI C EXAMI NATIO N RBC 0-2 /hpf 0-2 Not Available [facility] ([facility]) [address] [facility], [place], [address], 05/26/2025 20:10:44 05/18/2005/19/2025 MICRO SCOPI C EXAMI NATIO N epithelial cells (non renal) 0-10 /hpf 0-10 Not Available [facility] ([facility]) [address] [facility], [place], [address], 05/26/2025 20:10:44 05/18/2005/19/2025 MICRO SCOPI C EXAMI NATIO N casts None seen /lpf nonese en Not Available [facility] ([facility]) [address] [facility], [place], [address], 05/26/2025 20:10:44 05/18/2005/19/2025 MICRO SCOPI C EXAMI NATIO N crystals Presen t n/a abnormal Not Available [facility] ([facility]) [address] [facility], [place], [address], 05/26/2025 20:10:44 05/18/2005/19/2025 MICRO SCOPI C EXAMI NATIO N crystal type Calciu m Oxalat e Not Available [facility] ([facility]) [address] [facility], [place], [address], 05/26/2025 20:10:44 05/18/2005/19/2025 MICRO SCOPI C EXAMI NATIO N mucus threads Presen t notest ab. Not Available [facility] ([facility]) [address] [facility], [place], [address], 05/26/2025 20:10:44 05/18/2005/19/2025 MICRO SCOPI C EXAMI NATIO N bacteria Few nonese en/few Not Available [facility] ([facility]) [address] [facility], [place], [address], 05/26/2025 20:10:44 05/18/2005/26/2025 CYSTI C FIBRO SIS, 97 VARIA NTS ethnicity COMMEN T Not Provi ded Not Available [facility] ([facility]) [address] [facility], [place], [address], 05/26/2025 20:10:44 05/18/2005/26/2025 CYSTI C FIBRO SIS, 97 VARIA NTS specimen type COMMEN T Whole Blood Not Available [facility] ([facility]) [address] [facility], [place], [address], 05/26/2025 20:10:44 05/18/2005/26/2025 CYSTI C FIBRO SIS, 97 VARIA NTS indication COMMEN T Tiffanie er Test / Scree julito Not Available [facility] ([facility]) [address] [facility], [place], [address], 05/26/2025 20:10:44 05/18/2005/26/2025 CYSTI C FIBRO SIS, 97 VARIA NTS result: COMMEN T NEGAT SHAGUFTA Not Available [facility] ([facility]) [address] [facility], [place], [address], 05/26/2025 20:10:44 05/18/2005/26/2025 CYSTI C FIBRO SIS, [...] alice n Table . Not Available [facility] ([facility]) [address] [facility], [place], [address], 05/26/2025 20:10:44 05/18/2005/26/2025 CYSTI C FIBRO SIS, 97 VARIA NTS recommendati ons COMMEN T If the above resul t is posit shagufta, claudia ic couns garciang is recom sulaiman d to discu ss the poten tial clini [place] and/o r repro ducti ve impli catio ns, as well as recom menda tions for testi ng famil y membe rs and, when appli cable , this indiv idual 's partn er. Claudia ic couns garciaarcadio servi jabari are avail able. To acces s [facility] Claudia ic Couns janeth melchor e visit https :[email or web address] orp.c om/ge netic -coun aryan g or call [phone]) -[facility] ([phone]). Not Available [facility] ([facility]) [address] [facility], [place], [address], 05/26/2025 20:10:44 05/18/2005/26/2025 CYSTI C FIBRO SIS, [...] ation may be indic ated. (PMID :2030 1420) . Not Available [facility] ([facility]) [address] [facility], [place], [address], 05/26/2025 20:10:44 05/18/2005/26/2025 CYSTI C FIBRO SIS, 97 VARIA NTS comments COMMEN T This inter preta tion is based on the clini orville infor matio n provi ded and the curre nt under stand ing of the molec ular claudia ics of the disor clair(s ) teste d. Infor matio n about the disor clair(s ) teste d is avail able at https :[email or web address] orp.[email or web address] om. Not Available [facility] ([facility]) [address] [facility], [place], [address], 05/26/2025 20:10:44 05/18/2005/26/2025 CYSTI C FIBRO SIS, 97 VARIA NTS methods/limi tations COMMEN T Next- gener ation Seque ncing (NGS) : Genom ic regio ns of inter est in the CFTR gene are selec mercy using the [employer] ience (R) hybri dizat ion captu re metho d and seque nced via the ZeroMail(R ) NGS platf orm. Seque ncing reads [...] ring and nomen clatu re recom sulaiman geovani by the Human Genom e Varia tion Socie ty (HGVS , http: //www .hgvs .org/ ). Varia nt class ifica tion and confi rmati on are consi stent with ACMG stand ards and guide lines (Rich ards, PMID: 66990 868; Henry, PMID: 51081 774). Re sis is restr icted to [...] e wolfgang cteri stics deter mined by [employer]. It has not been clear ed or appro ifeanyi by the Food and Drug Admin istra tion. Not Available [facility] ([facility]) [address] [facility], [place], [address], 05/26/2025 20:10:44 05/18/2005/26/2025 CYSTI C FIBRO SIS, [...] ve risk estim ates. Not Available [facility] ([facility]) [address] [facility], [place], [address], 05/26/2025 20:10:44 05/18/2005/26/2025 CYSTI C FIBRO SIS, 97 VARIA NTS references COMMEN T Jesus colón JL, Astyas ry C, Cutti ng GR et al. CFTR varia nt testi ng: a techn ical stand shantanu of the [employer] fair [employer] ge of Medic al Claudia ics and Genom ics ([facility] ). Claudia Med 22, 6908 (2020 ). PMID: 07582 922 Torres T, Ryan agrawal SG, Neva shaw BA, et al. Cysti c Fibro sis and Conge nital Absen ce of the Vas Defer ens. 2000 [Upda mercy 2016Sep 07]. In: Yinka MP, Araceli jasso HH, Red RA, et al., chandu aguillon. GeneR maria victoria molina(R) [Inte rnet] . PMID: 42091 428 Not Available [facility] ([facility]) [address] [facility], [place], [address], 05/26/2025 20:10:44 05/18/20 05/26/2025 CYSTI C FIBRO SIS, 97 VARIA NTS director review/relea se COMMEN T [place] nent Type Perfo rmed At Labor atory Direc tor Techn ical Labor atory Rafael Rehman , compo nent, Corpo ratio n of , PhD proce ssing [place], [address] , [facility] [place], [address] Techn ical Labor atory Rafael Rehman , compo nent, Corpo ratio n of , PhD re sis [place], [address] , [place], [address] Profe jo annon al WSTGD 6, Rafael Rehman , compo nent Labor yakelin REIS, PhD Corpo ratio n of Ameri n[place], [address] , [facility] [place], [address] Elect lynnette maurera sed by Queenie Yang, PhD, [facility] Not Available [facility] ([facility]) [address] [place], [address], 05/26/2025 20:10:44 05/18/2005/26/2025 CYSTI C FIBRO SIS, 97 VARIA NTS pdf . Not Available [facility] ([facility]) [address] [place], [address], 05/26/2025 20:10:44 05/18/20 25 05/22/2025 SPINA L MUSCU LAR ATROP HY (SMA) ethnicity COMMEN T Not Provi ded Not Available [facility] ([facility]) [address] [place], [address], 05/26/2025 20:10:45 05/18/2005/22/2025 SPINA L MUSCU LAR ATROP HY (SMA) specimen type COMMEN T Whole Blood Not Available [facility] ([facility]) [address] [place], [address], 05/26/2025 20:10:45 05/18/20 25 05/22/2025 SPINA L MUSCU LAR ATROP HY (SMA) indication COMMEN T Tiffanie er Test / Scree julito Not Available [facility] ([facility]) [address] [facility], [place], [address], 05/26/2025 20:10:45 05/18/2005/22/2025 SPINA L MUSCU LAR ATROP HY (SMA) result: COMMEN T NEGAT SHAGUFTA Not Available [facility] ([facility]) [address] [facility], [place], [address], 05/26/2025 20:10:45 05/18/2005/22/2025 SPINA L MUSCU LAR [...] mercy pregn juan manuel. Not Available [facility] ([facility]) [address] [facility], [place], [address], 05/26/2025 20:10:45 05/18/2005/22/2025 SPINA L MUSCU LAR ATROP HY (SMA) recommendati ons COMMEN T If the above resul t is posit sahgufta, claudia ic couns eliarcadio is recom sulaiman d to discu ss the poten tial clini [place] and/o r repro ducti ve impli catio ns, as well as recom menda tions for testi ng famil y membe rs and, when appli cable , this indiv idual 's partn er. Claudia ic couns eliarcadio servi jabari are avail able. To acces s [facility] Claudia ic Couns janeth melchor e visit https :[email or web address] orp.c om/ge netic -coun aryan joseph or call [phone] [facility] [phone]). Not Available [facility] ([facility]) [address], [place], [address], 05/26/2025 20:10:45 05/18/20 25 05/22/2025 SPINA L [...] nios, and decre ased movem ent. (Janell tolliver, PMID: 40883 59). Treat ment is suppo rtive . Targe mercy thera pies may be avail able for some indiv idual s. Appro ximat leonid 94% of affec mercy indiv idual s have 0 copie s of the SMN1 gene; in these indiv idual s, an incre ase in the numbe r of copie s of the SMN2 gene corre lates with reduc ed disea se sever ity (Vivian Benson, PMID: 65702 208). Indiv idual s with one copy [...] tiffanie er (2+0) . Not Available [facility] ([facility]) [address] [facility], [place], [address], 05/26/2025 20:10:45 05/18/20 25 05/22/2025 SPINA L [...] d is avail able at https :[email or web address] mens ealt [facility] orp.c om. Not Available [facility] ([facility]) [address] [facility], [place], [address], 05/26/2025 20:10:45 05/18/20 25 05/22/2025 SPINA L [...] mercy, allel ic discr imina tion qPCR duane earnest c.*3+ 80T>G in SMN1 is perfo [...] e wolfgang cteri stics deter mined by [employer]. It has not been clear ed or appro ifeanyi by the Food and Drug Admin istra tion. [employer] is a subsi diary of [employer] Corpo ratio n of Ameri ca Holdi ngs, using the brand [employer] rp. Not Available [facility] ([facility]) [address] [facility], [place], [address], 05/26/2025 20:10:45 05/18/20 25 05/22/2025 SPINA L [...] mercy in this assay Jose Raul. PMID 88324 085 ; Paolo. PMID 05005 250 ; Sugar man . PMID 84311 307 Not Available [facility] ([facility]) [address] [facility], [place], [address], 05/26/2025 20:10:45 05/18/2005/22/2025 SPINA L MUSCU LAR ATROP HY (SMA) references COMMEN T Jesus colón JL, Bettina candelario C, Haja tucker A et al. Adden dum: Techn ical stand ards and guide lines for spina l muscu lar atrop hy testi ng. Claudia Med 23, 8489 (2020 ). [Adde ndum to PMID: 09396 580] Prior TW, Bella ME, Anni Schneider. Spina l Muscu lar Atrop hy. 1999Sep 29 (Upda mercy 2019Aug 04). In: Yinka GIMENEZ, Araceli jasso HH, Red RA, et al., chandu aguillon. Allison molina(R) [Inte rnet] . PMID: 80701 526 Not Available [facility] ([facility]) [address] [facility], [place], [address], 05/26/2025 20:10:45 05/18/20 25 05/22/2025 SPINA L MUSCU LAR ATROP HY (SMA) director review/relea se COMMEN T [place] nent Type Perfo rmed At Labor atory Dire tor Techn ical Esote pedro Claudia sandra Strickland, PhD, compo nent, [facility], [facility] proce ssing [address] , [place], [address] Techn ical Esote pedro Claudia sandra Strickland, PhD, compo nent, [facility], [facility] re sis [address] , [place], [place], [address] Profe jo annon al Esote pedro Claudia sandra Strickland, PhD, compo nent [employer], [facility] [address] [place], [address] Mattie valles relea sed by Amrik Hua , PhD, [facility] Not Available [facility] ([facility]) [address] [facility], [place], [address], 05/26/2025 20:10:45 05/18/2005/22/2025 SPINA L MUSCU LAR ATROP HY (SMA) pdf . Not Available [facility] ([facility]) [address] [facility], [place], [address], 05/26/2025 20:10:45 05/18/20 25 05/20/2025 RESUL T result 1 Commen t Mixed uroge nital demarco 50,00 0-100 ,000 colon y formi ng units per mL Not Available [facility] ([facility]) [address] [facility], [place], [address], 05/26/2025 20:10:46 05/18/2005/18/2025 pregn juan manuel test, urine HCG positi ve Not Available In-Office Order Internal Use Only DO Not Attach Compendium DO Not Attach Compendium, Do Not Delete/merge, [id number] 05/18/2025 11:38:42 05/18/2005/18/2025 urina lysis , dipst [...] 05/18/2005/18/2025 urina lysis , dipst ick Specific [place] 1.025 Not Available In-Off ice Order Internal Use Only DO Not Attach Compendium DO Not Attach Compendium, Do Not Delete/merge, 05/18/2025 11:37:14 05/18/2005/18/2025 urina lysis , dipst ick Ketone Negati ve Not Available In-Office Order Internal Use Only DO Not Attach Compendium DO Not Attach Compendium, Do Not Delete/merge, [id number] 05/18/2025 11:37:14 05/18/2005/18/2025 urina lysis , dipst [...] Attach Compendium, Do Not Delete/merge, 05/19/2025 16:22:32 06/15/2006/19/2025 MATER NIT21 PLUS CORE gestation SINGLE TON Not Available [facility] ([facility]) [address] [facility], [place], [address], 06/19/2025 16:20:07 06/15/20 25 06/19/2025 MATER NIT21 PLUS CORE fraction 21% Not Available [facility] ([facility]) [address] [facility], [place], [address], 06/19/2025 16:20:07 06/15/20 25 06/19/2025 MATER NIT21 PLUS CORE gestational age > or = 9W: YES Not Available [facility] ([facility]) [address] [facility], [place], [address], 06/19/2025 16:20:07 06/15/20 25 06/19/2025 MATER NIT21 PLUS CORE test result NEGATI VE Not Available [facility] ([facility]) [address] [facility], [place], [address], 06/19/2025 16:20:07 06/15/20 25 06/19/2025 MATER NIT21 PLUS CORE mobile lab technician comments FARIBA Merino speci men showe d an expec mercy repre senta tion of chrom osome 21, 18 and 13 mater ial. [place] corre latio n is dioni lujan. Not Available [facility] ([facility]) [address] [facility], [place], [address], 06/19/2025 16:20:07 06/15/20 25 06/19/2025 MATER NIT21 PLUS CORE approved by FARIBA fournier MD, PhD, [facility] tor, Seque nom Labor atori es Not Available [facility] ([facility]) [address] [place], [address], 06/19/2025 16:20:07 06/15/20 25 06/19/2025 MATER NIT21 PLUS CORE trisomy 21 (down syndrome) NEGATI VE Not Available [facility] ([facility]) [address] [facility], [place], [address], 06/19/2025 16:20:07 06/15/20 25 06/19/2025 MATER NIT21 PLUS CORE trisomy 18 (correa syndrome) NEGATI VE Not Available [facility] ([facility]) [address] [place], [address], 06/19/2025 16:20:07 06/15/20 25 06/19/2025 MATER NIT21 PLUS CORE trisomy 13 (patau syndrome) NEGATI VE Not Available [facility] ([facility]) [address] [place], [address], 06/19/2025 16:20:07 06/15/20 25 06/19/2025 MATER NIT21 PLUS CORE sex FARIBA Bello Consi stent with Male Not Available [facility] ([facility]) [address] [place], [address], 06/19/2025 16:20:07 06/15/20 25 06/19/2025 MATER NIT21 PLUS CORE negative predictive value NOTE The Negat shagufta Predi ctive Value (NPV) for triso my 21, 18, and 13 is great er than 99%. The NPV for SCA and ESS canno t be calcu lated as SCA and ESS are only repor mercy when an abnor malit y is detec mercy. Not Available [facility] ([facility]) [address] [facility], [place], [address], 06/19/2025 16:20:07 06/15/20 25 06/19/2025 MATER NIT21 PLUS CORE positive predictive value N/A Not Available [facility] ([facility]) [address] [facility], [place], [address], 06/19/2025 16:20:07 06/15/20 25 06/19/2025 MATER NIT21 PLUS CORE about the test COMMEN T The Mater niT(R ) 21 PLUS labor atory -deve loped test (LDT) re zes circu latin g cell- free DNA from a mater nal blood sampl e. This test is used for scree julito purpo ses and not diagn ostic . [place] corre latio n is recom sulaiman d. Valid ation data on twin pregn ancie s is limit ed and the abili ty of this test to detec t aneup loidy in highe r multi ple gesta tions has not yet been valid ated. Not Available [facility] ([facility]) [address] [facility], [place], [address], 06/19/2025 16:20:07 06/15/20 25 06/19/2025 MATER NIT21 PLUS CORE test method COMMEN T Circu latin g cell- free DNA was purif ied from the plasm a compo nent of mater nal blood . The extra cted DNA was then conve rted into a Drippler DNA gonsalo ry for aneup loidy re sis of chrom osome s 21, 18, and 13 via next gener ation seque ncing .[1] Optio nal findi ngs based on the test order inclu de sex chrom osome aneup loidy (SCA) [2], and antonian dao seque ncing serie s (ESS) [3], which will only be repor mercy on as an addit ional findi ng when an abnor malit y is detec mercy. SCA testi ng inclu oksana infor matio n on X and Y repre senta tion, while ESS testi ng inclu oksana delet ions in selec mercy regio ns (22q, 15q, 11q, 8q, 5p, 4p, 1p) and triso my of chrom osome s 16 and 22. Not Available [facility] ([facility]) [address] [facility], [place], [address], 06/19/2025 16:20:07 06/15/20 25 06/19/2025 MATER NIT21 PLUS CORE performance COMMEN T The perfo rmanc e wolfgang cteri stics of the Mater niT(R ) 21 PLUS labor atory -deve loped test (LDT) have been deter mined in a clini orville valid ation study with pregn ant women at incre ased risk for chrom osoma l aneup loidy .[1-4 ] Not Available [facility] ([facility]) [address] [facility], [place], [address], 06/19/2025 16:20:07 06/15/20 25 06/19/2025 MATER NIT21 PLUS CORE performance characterist ics NOTE ----- ----- ----- ----- ----- ----- ----- ----- ----- ----- ----- ---- ! Sex ! Accur acy: 99.4% ! !---- ----- ----- ----- ----- ----- ----- ----- ----- ----- ----- ---! ! Regio n (asso ciate d syndr ome) ! Est. Sens# ! Est. Spec ! !---- ----- ----- ----- ----- ----- ----- ----- ----- ----- ----- ---! ! Dakotao my 21 (Down Syndr ome) ! 99.1% ! 99.9% ! !---- ----- ----- ----- ----- ----- ----- ----- ----- ----- ----- ---! ! Dakotao my 18 (Edwa rds Syndr ome) ! >99.9 % ! 99.6% ! !---- ----- ----- ----- ----- ----- ----- ----- ----- ----- ----- ---! ! Dakotaclarence my 13 (Pata u Syndr ome) ! 91.7% ! 99.7% ! !---- ----- ----- ----- ----- ----- ----- ----- ----- ----- ----- ---! ! Sex Chrom osome Aneup lanette es## ! 96.2% ! 99.7% ! !---- ----- ----- ----- ----- ----- ----- ----- ----- ----- ----- ---! * As repor mercy in ISCA datab ase nstd3 7 [http s://w jairo.nc bi.nl m.nih .gov/ dbvar /stud ies/n std37 / ] # Estim ated Sensi tivit y. Sensi tivit y estim ated acros s the obser ifeanyi size distr ibuti on of each syndr ome [per ISCA datab ase nstd3 7] and acros s the range of fract ions obser ifeanyi in routi ne clini orville NIPT. Actua l sensi tivit y can also be influ enced by other facto rs such as the size of the event , total seque nce count s, ampli ficat ion bias, or seque nce bias. ## Singl eton gesta tion only. Not Available [facility] ([facility]) [address] [facility], [place], [address], 06/19/2025 16:20:07 06/15/20 25 06/19/2025 MATER NIT21 PLUS CORE limitations of the test COMMEN T While the resul ts of these tests are highl y relia ble, disco rdant resul ts, inclu ding inacc urate sex predi ction , may occur due to place ntal, mater nal, or mosai cism or neopl asm; vanis darin twin; prior mater nal organ trans plant ; or other cause s. These tests are scree julito tests and not diagn ostic ; they do not repla ce the accur acy and preci jayant of prena brody diagn osis with CVS or amnio cente sis. A patie nt with a posit shagufta test resul t shoul d be refer red for claudia ic couns eling and offer ed invas shagufta prena brody diagn osis for confi rmati on of test resul ts.[5 ] The resul ts of this testi ng, inclu ding the benef its and limit ation s, shoul d be discu ssed with a quali fied healt hcare provi clair. Pregn juan manuel manag ement decis ions, inclu ding termi natio n of the pregn juan manuel, shoul d not be based on the resul ts of these tests alone . The healt hcare provi clair is respo nsibl e for the use of this infor matio n in the manag ement of their patie nt. Sex chrom osoma l aneup loidi es are not repor table for known multi ple gesta tions . A negat shagufta resul t does not ensur e an unaff ected pregn juan manuel nor does it exclu de the possi bilit y of other chrom osoma l abnor malit ies or defec ts which are not a part of these tests . An uninf ormat shagufta resul t may be repor mercy, the cause s of which may inclu de, but are not limit ed to, insuf ficie nt seque ncing cover age, noise or artif acts in the regio n, ampli ficat ion or seque ncing bias, or insuf ficie nt fract ion. These tests are not inten ded to ident felecia pregn ancie s at risk for neura l tube defec ts or ventr al wall defec ts. Testi ng for whole chrom osome abnor malit ies (incl uding sex chrom osome s) and for subch romos omal abnor malit ies could lead to the poten tial disco very of both and mater nal genom ic abnor malit ies that could have major , minor , or no, clini orville signi fican ce. Evalu ating the signi fican ce of a posit shagufta or a non-r eport able resul t may invol ve both invas shagufta testi ng and addit ional studi es on the mothe r. Such inves tigat ions may lead to a diagn osis of mater nal chrom osoma l or subch romos omal abnor malit ies, which on occas ion may be assoc iated with benig n or malig nant mater nal neopl asms. These tests may not accur ately ident felecia tripl oidy, jodie dao rearr angem ents, or the preci se locat ion of subch romos omal dupli catio ns or delet ions; these may be detec mercy by prena brody diagn osis with CVS or amnio cente sis. The abili ty to repor t resul ts may be impac mercy by mater nal BMI, mater nal weigh t, mater nal syste dilan lupus eryth emato mars (SLE) and/o r by certa in pharm aceut ical agent s such as low molec ular weigh t hepar in (for examp le: Loven ox(R) , Xapar in(R) , Clexa ne(R) and Fragm in(R) ). Not Available [facility] ([facility]) [address], [place], [address], 06/19/2025 16:20:07 06/15/2006/19/2025 MATER NIT21 PLUS CORE note FARIBA [employer] is a subsi diary of Labor atory Corpo ratio n of [employer] Estr[employer] ngs, using the brand [employer]. This test was devel oped and its perfo rmanc e wolfgang cteri stics deter mined by [employer]. It has not been clear ed or appro ifeanyi by the Food and Drug Admin istra tion. This labor atory is certi fied under the [place]ini or[place] Labor atory Impro vemen t Amend ments (CLIA ) as quali fied to perfo rm high compl exity clini orville labor atory testi ng and accre dited by the Yamilet thomason of [employer] can Patho logis ts (CAP) . If there is futur e clini orville need for addin g Mater niT GENOM E testi ng, this speci men will be avail able until term. [facility] sampl es will not be retai salome beyon d 60 days. [facility] patie nts will have to send a new sampl e for re-se quenc ing ([facility] Test Code: 38480 4). Not Available [facility] ([facility]) [address] [facility], [place], [address], 06/19/2025 16:20:07 06/15/20 25 06/19/2025 MATER NIT21 PLUS CORE references FARIBA T 1. Anuel THOMASON, et al. Claudia Med. 2012; 14(3) :296- 305. 2. Elke SCHAFER, et al. Prena t Diag. 2013; 33(6) :591- 597. 3. Conor C, et al. Clin Chem. 2015 Nov;6 1(4): 608-6 16. 4. Anuel THOMASON, et al. Claudia Med. 2011; 13(11 ):913 -920. 5. ACOG/ SMFM Pract ice Bulle tin No. 226, May 2020. Not Available [facility] ([facility]) [address] [facility], [place], [address], 06/19/2025 16:20:07 06/15/2006/19/2025 MATER NIT21 PLUS CORE pdf . Not Available [facility] ([facility]) [address] [facility], [place], [address], 06/19/2025 16:20:07 06/15/2006/15/2025 urina lysis , dipst ick Leukocytes Negati ve Not Available In-Office Order Internal Use Only DO Not Attach Compendium DO Not Attach Compendium, Do Not Delete/merge, 06/15/2025 11:55:16 06/15/2006/15/2025 urina lysis , dipst ick Nitrite negati ve Not Available In-Office Order Internal Use Only DO Not Attach Compendium DO Not Attach Compendium, Do Not Delete/merge, 06/15/2025 11:55:16 06/15/2006/15/2025 urina lysis , dipst ick Urobilinogen .2 Not Available In-Of fice Order Internal Use Only DO Not Attach Compendium DO Not Attach Compendium, Do Not Delete/merge, 06/15/2025 11:55:16 06/15/2006/15/2025 urina lysis , dipst ick Protein 30 Not Available In-Office Order Internal Use Only DO Not Attach Compendium DO Not Attach Compendium, Do Not Delete/merge, 06/15/2025 11:55:16 06/15/2006/15/2025 urina lysis , dipst ick pH 5.5 Not Available In-Office Order Internal Use Only DO Not Attach Compendium DO Not Attach Compendium, Do Not Delete/merge, 06/15/2025 11:55:16 06/15/2006/15/2025 urina lysis , dipst ick Blood Non-He molyze d: Trace Not Available In-Office Order Internal Use Only DO Not Attach Compendium DO Not Attach Compendium, Do Not Delete/merge, 06/15/2025 11:55:16 06/15/20 25 06/15/2025 urina lysis , dipst ick Specific [place] 1.030 Not Available In-Off ice Order Internal Use Only DO Not Attach Compendium DO Not Attach Compendium, Do Not Delete/merge, [address] 06/15/2025 11:55:16 06/15/2006/15/2025 urina lysis , dipst ick Ketone Negati ve Not Available In-Office Order Internal Use Only DO Not Attach Compendium DO Not Attach Compendium, Do Not Delete/merge, 06/15/2025 11:55:16 06/15/2006/15/2025 urina lysis , dipst ick Bilirubin Negati ve Not Available In-Office Order Internal Use Only DO Not Attach Compendium DO Not Attach Compendium, Do Not Delete/merge, 06/15/2025 11:55:16 06/15/2006/15/2025 urina lysis , dipst ick Glucose Negati ve Not Available In-Office Order Internal Use Only DO Not Attach Compendium DO Not Attach Compendium, Do Not Delete/merge, 06/15/2025 11:55:16 06/15/2006/11/2025 US, obste tric, 1st trime ster No observ ation record ed. [facility] [address], [place], [address], 06/23/2025 11:14:48 Result Notes None recorded. Problems Name Problem SNOMED Code Status Onset Date Resolution Date Notes Provider Name and Address Organization Details Recorded Time Bacterial vaginosis 278759136 Active 2024 Vernon Brady MD Attn: Jemal joseph,[address] [facility], [place], [address], [place] 15:23:42 25965029 Active 2024 Sarah Melendrez MA null, [place] - [facility] 11:39:01 History of syncope 210923743268 109 Active 2024 Not eating well, given loss of appetite. Last episode in the beginning of RYANNE ADAMS MD Attn: Jemal joseph,[address] [facility], [place], [address], [facility] SI 5 09:59:21 Past history of miscarria ge 806999261 Active 2024 Patient has history of 2 prior first trimester loss of First miscarria ge - bleeding, and cramping -within 5-6 weeksSeco nd miscarria ge - bleeding and cramping within 2 weeks of finding CORAL INOCENTE ADAMS MD Attn: Jemal joseph[address] [facility], [place], [address], [facility] 5 09:59:24 Sickle cell trait 20183228 Active 2024 Cali Levine MD Attn: Jemal joseph,[address] [place], [address], [facility] 5 18:17:41 History of chlamydia l infection 468597895 Active 2024 Cali Levine MD Attn: Jemal joseph,[address] [place], [address], [facility] 5 18:17:53 Marijuana user 724810001 Active 2024 Cali Levine MD Attn: Jemal joseph,[address] [place], [address], [facility] 5 18:21:00 Problem Notes None recorded. Procedures Surgical History Date Name Laterality Status Provider Name and Address Organization Details Recorded Time 05/18/2025 Date of Last Pap Smear completed Sarah Melendrez MA [facility] 05/18/2025 11:36:19 Imaging Results None recorded. [...] height Body mass index (BMI) Body weight Systolic And Diastolic Provider Name and Address Organization Details Last Updated DateTime 06/15/2025 172.72 cm 22 kg/m2 20310.1 g 116/70 mm[Hg] Modesta Garza MA [place] - [facility] 06/15/2025 11:24:07 Social History Question Answer Notes LastModified by [employer] Details LastModified Time Tobacco Smoking Status Never Smoker Ting Gallardo MA null, [facility] 12/26/2024 09:29:24 What Is Your Level [...] Functional Status Question Answer Note LastModified by [employer] Details LastModified Time Do you use any [...] adolescent or pediatric 3 completed Not Available [facility] 07/20/2025 11:23:58 Hep B, adolescent or pediatric 3 completed Not Available [facility] 07/20/2025 11:23:58 DTaP 3 completed Not Available [facility] 07/20/2025 11:23:58 IPV 3 completed Not Available [facility] 07/20/2025 11:23:58 pneumococcal conjugate PCV 7 3 completed Not Available [facility] 07/20/2025 11:23:58 Hib, unspecified formulation 3 completed Not Available [facility] 07/20/2025 11:23:58 DTaP 4 completed Not Available [facility] 07/20/2025 11:23:58 IPV 4 completed Not Available [facility] 07/20/2025 11:23:58 pneumococcal conjugate PCV 7 4 completed Not Available [facility] 07/20/2025 11:23:58 Hib, unspecified formulation 4 completed Not Available [facility] 07/20/2025 11:23:58 Hib, unspecified formulation 4 completed Not Available [facility] 07/20/2025 11:23:58 DTaP 4 completed Not Available [facility] 07/20/2025 11:23:58 Hep B, adolescent or pediatric 4 completed Not Available [facility] 07/20/2025 11:23:58 varicella 4 completed Not Available [facility] 07/20/2025 11:23:58 pneumococcal conjugate PCV 7 4 completed Not Available [facility] 07/20/2025 11:23:58 MMR 4 completed Not Available [facility] 07/20/2025 11:23:58 Hib, unspecified formulation 5 completed Not Available [facility] 07/20/2025 11:23:58 DTaP 5 completed Not Available [facility] 07/20/2025 11:23:58 IPV 5 completed Not Available [facility] 07/20/2025 11:23:58 MMR 8 completed Not Available [facility] 07/20/2025 11:23:58 IPV 8 completed Not Available [facility] 07/20/2025 11:23:58 varicella 8 completed Not Available [facility] 07/20/2025 11:23:58 DTaP 8 completed Not Available [facility] 07/20/2025 11:23:58 Hep A, pediatric, unspecified formulation 1 completed Not Available [facility] 07/20/2025 11:23:58 Influenza, live, trivalent, intranasal, PF 1 completed Not Available [facility] 07/20/2025 11:23:58 Influenza, split virus, quadrivalent, PF 4 completed Not Available [facility] 07/20/2025 11:23:58 Hep A, ped/adol, 2 dose 4 completed Not Available [facility] 07/20/2025 11:23:58 Tdap 4 completed Not Available [facility] 07/20/2025 11:23:58 meningococcal MCV4P 5 completed Not Available [facility] 07/20/2025 11:23:58 HPV9 5 completed Not Available [facility] 07/20/2025 11:23:58 Influenza, live, quadrivalent, intranasal 5 completed Not Available [facility] 07/20/2025 11:23:58 HPV9 5 completed Not Available [facility] 07/20/2025 11:23:58 HPV9 6 completed Not Available [facility] 07/20/2025 11:23:58 Meningococcal MCV4O 9 completed Not Available [facility] 07/20/2025 11:23:58 meningococcal B, OMV 9 completed Not Available [facility] 07/20/2025 11:23:58 meningococcal B, OMV 1 completed Not Available [facility] 07/20/2025 11:23:58 Past Encounters Encounter ID Performer Location Encounter Start Date Encounter Closed Date Diagnosis/Indication Diagnosis SNOMED-CT Code Diagnosis ICD10 Code Diagnosis IMO Codes Diagnosis Note [id number] Cali Levine MD [facility] ([facility]) [address] [place] [address] 05/18/2025 11:00:54 05/27/2025 15:39:06 Normal 39813412 Z34.91 [id number] - 20y/o presenting @ 8.4EDD 12/24/2025 based [...] in 4 weeks History of depression 16 5998082 Z86.59 827068 Patient endorses spells of depression post-misca rriagesPat ient aware of mood swings during - Refer to for establishm ent and management Sampling o f cervix for Papanicolaou smear 162624721 Z12.4 26494469 New OB pap-smear done via speculum examinatio n- Pap smear done for cervical cancer screening, reflex HPV if ASCUS test positive 873254941 Z32.01 517340 Discussed positive urine test as mentioned above Depression screening 171 599159 Z13.31 310286 EDPS of 12, suggesting possible depression - Repeat EDPS at next visit [id number] MD Cyrus Yi ([facility]) [address] [place] [address] 06/15/2025 10:41:27 06/19/2025 13:11:41 Normal 30846409 Z34.82 0295875 -20 y/o @ 12w4d weeks; GABE 12/24/2025 based on LMP-Positi ve for chlamydia. Completed 4 doses of azithromyc in. Partner has not been able to get treatment. -Denies vaginal discharge, discomfort , dysuria, vaginal bleeding or loss of fluid.-No ED visit since last appointmen t. Completed today:- Maternity 21 screen- Needs DONALD for chlamydia next visit, has not been a month yet-Needs varicella titer at next visit History of syncope 19412 20556 08731 Z87.648 0997208 Not eating well, given loss of appetite. Last episode in the beginning of Past pregn juan manuel history of miscarriage 335630089 Z87.59 206934 Patient has history of 2 prior first trimester loss of pregnancyF irst miscarriag e - bleeding, and cramping -within 5-6 weeksSecon d miscarriag e - bleeding and cramping within 2 weeks of finding Marijuana user 240777076 F12.90 [id number] Every other day, trying to quit Depression screening negative 6222541521 86162 Z13.31 17810375 PHQ negative, hx of depression will continue to monitor Health Concerns Section Related Observation LastModified by Organization Detai ls LastModified Time None Recorded Concern Status LastModified by Organization Details LastModified Time None Recorded Payers Encounter Date Sequence Insurance Name Policy Number Policy Arana Covered Member ID Arana Member ID Guarantor Name 06/15/2025 1 [facility] DOS ON OR AFTER 21 (MEDICAID REPLACEMENT - HMO) Janak Bautista [id number] Janak Bautista Notes Date Note Type Note Provider Name and Address Organization Details Recorded Time 06/15/2025 text/html ROS as noted in the HPI OB plan: 20 y/o @ 12w4d weeks; GABE 12/24/2025 based on LMP Completed initial US at [facility]. Completed 4 doses of azithromycin x 3 weeks ago. Partner has not been able to get treatment. Denies vaginal discharge, discomfort, dysuria, vaginal bleeding or loss of fluid. No ED visit since last appointment. Loss of appetite, history of syncope, last episode at beginning of .Taking PNVSmoking weed every other day, trying to quit. Previous delivery hx: nonePatient has history of 2 prior first trimester loss of pregnancyFirst miscarriage - bleeding, and cramping -within 5-6 weeksSecond miscarriage - bleeding and cramping within 2 weeks of finding DatingLMP: 03/19 [place] 8.4 GABE: 12/24/2025 Patient is sure of dating.D U/S: Date 05/25/25 AUA: 9w3d GABE: 24 Discrepancy <5 daysFinal GABE: 12/24/25Based on LMP supported by US Pre- Weight: 143, BMI: within normal limits Pre-Eclampsia Risk: lowContinuity Resident: Wilbur Villanueva List:History of first trimester lossesHistory of depressionHistory of syncope Anticipate [facility] Delivery INITIAL LABSDate: 05/18/25 Blood Type: A Rh Type: positive Antibody Screen: negCBC: Hgb 11.1 Hct 35.8 WBC 9.3 Plts 305VDRL/RPR: non-reactive Hep B: negative HepC: non-reactive HIV: Non-reactiveVaginal Cultures: GC:neg; Chlamydia:pos;Trich: negPap: UTD, negativeRubella: immune Varicella:CF:neg Sickle Cell screening: consistent with sickle cell trait Spinal Muscular Atrophy: negativeCulture: abnormal UDS:pos if pos, significant for [id number] /QUAD:; consistent withEPDS: positive, need for repeat screening during yes; if yes when next visitEarly GTT no 16 weeks:Date:AFP 18-20 weeks:Date:Anatomy Scan: 24 weeks:Date:GTT: ; 3HR GTTCBC: Hgb Hct WBC Plts 28 weeks:Date:HIV: RPR Vaginal Cultures: GC:; Chlamydia:;Trich:Tdap: Date:COVID: FluRhogam Date: 32 weeks:Date:RSV 36 weeks:Date:GBSLimited bedside US: Planning to breastfeed: yes Circumcision Epidural Post- contraception Cali Levine MD Attn: Accounting[address] [place], [address], [place] - [facility] 06/16/2025 18:21:53 OBGyn Episode Ob Episode Information Episode Created Date Number of Fetuses Patient Bloodtype Patient rh Status Prepregnancy Weight lbs Domestic Partner Domestic Partner Phone Father Name Equine Vet Status 05/18/20 25 1 A Positive OPEN Fetus Data First Name Last Name Admitted to NICU Weight (g) Sex Living Outcome Pediatric Complications Fetus ID Race Codes Race Delivery Type [id number] Problems Problem Notes Problem Name Start Date End Date Resolution Snomed Code Not e History of syncope 06/16/2025 [id number] 81964 Not eating well, given loss of appetite. Last episode in the beginning of History of chlamydial infection 06/16/2025 913834226 Sickle cell trait 06/16/2025 95420509 Past history of miscarriage 06/16/2025 661254794 Patient has his tory of 2 prior first trimester loss of pregnancyFirst miscarriage - bleeding, and cramping -within 5-6 weeksSecond miscarriage - bleeding and cramping within 2 weeks of finding Marijuana user 06/16/2025 [id number] Gabe Calculation Initial Gabe Date Initial Exam Date Initial Exam Provider Initial Ultrasound Date Last Menstrual Period Date Ultra Sound Weeks Gestation 05/18/2025 05/25/2025 03/19/2025 9 Eighteen To Twenty Week Gabe Update Ultra Sound Date Fundal Height At Umbil Quickening Date Ultra Sound Latest Weeks Gestation Final Gabe Confirmed By Final Gabe Confirmed Date Final Gabe Date Ultra Sound Latest Days Gestation 0 [email or web address] 06/16/2025 12/25/19 26 0 Pre- Flowsheet Flowsheet Date 05/18/2025 Roque Score Blood Edema Fundus Height Fundus Units Glucose Ketones Leukocytes Nitrite Labor Signs Protein Cervic Dilation Cervic Effacement Cervic Station trace none none negative none trace 0cm Type Weight in lbs Pre/Post Dialysis Refused With clothes 138.107124302652 BP Diastolic BP Location Tested BP Systolic [...] in lbs Pre/Post Dialysis Refused With clothes 144.278579681158 BP Diastolic BP Location Tested BP Systolic [...] in lbs Pre/Post Dialysis Refused With clothes 142.701615037859 BP Diastolic BP Location Tested BP Systolic [...]
--- OUTSIDE RECORDS SUMMARY | 2025-07-25 14:52 | XMS_ITS | Continuity of Care Document ---
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 Plan of Treatment Reminders Order Date Submit Date Provider Last Modified By Organization Details Last Modified Time Details Appointments None recorded. Lab chlamydia trachomat is + neisseria gonorrhoe ae + trichomon as vaginalis rRNA panel, ROZ+probe 2024 025 [facility], [address], [place], [address], 5 07:54:29 urinalysi s, dipstick 2024 025 [email or web address] In-Office Order, Internal Use Only DO Not Attach Compendium DO Not Attach Compendium, Do Not Delete/merge, [id number] 5 12:42:41 afp (alpha-fe toprotein ) panel, maternal screen, serum [address] [facility], [address] [place] [address], [address], [place], [address], 5 07:54:28 varicella zoster virus IgG Ab, QL, IA, serum 2024 025 [facility], [address], [place], [address], 07:54:29 Referral None recorded. Procedures None recorded. Surgeries None recorded. Imaging US, obstetric , maternal evaluatio n + anatomy 2024 025 [email or web address] [facility], [facility], [place], [address], 11:59:03 Medication Orders None recorded. Patient TargetsNo targets recorded. Patient Instructions Encounter Date Encounter Id Patient Instructions Last Modified By Organization Details Last Modified Time 07/20/2025 [id number] I was present an d available in the clinic during the encounter. I discussed the patient's history, exam findings, and plan with the resident physician and agree with the assessment and plan as documented. Cali Levine MD [email or web address] Not available 07/22/2025 12:42:39 Reason for Referral None Reported. Results Created Date Observation Date Name Description Value Unit Range Abnormal Flag Note LastModifiedBy Organization Detail LastModifiedTime 05/18/2005/18/2025 [id number] 2 9+OXY CODON E+KEY PERSON -SCR please note: COMMEN T This assay provi oksana a preli minar y uncon firme d re tical test resul t that may be suita ble for clini [place] manag ement of patie nts in certa in situa tions . Drug- test resul ts shoul d be inter prete d in the norma xt of clini [place] infor alice Sterlinge nt metab olic varia bles, speci fic drug chemi stry, and speci men wolfgagn cteri stics can affec t test outco me. Techn ical consu ltati on is avail able if a test resul t is incon siste nt with an expec mercy outco me. Email : clini [email or web address] [email or web address] Phone : [phone] Not Available [facility] ([facility]) [address] [facility], [place], [address], 05/19/2025 20:09:55 05/18/2005/19/2025 [id number] 2 9+OXY CODON E+KEY PERSON -SCR amphetamines screen, urine NEGATI VE NG/mL cutoff =1000 Not Available [facility] ([facility]) [address] [facility], [place], [address], 05/19/2025 20:09:55 05/18/20 25 05/19/2025 [id number] 2 9+OXY CODON E+KEY PERSON -SCR barbiturates screen, urine NEGATI VE NG/mL cutoff =200 Not Available [facility] ([facility]) [address] [place], [address], 05/19/2025 20:09:55 05/18/2005/19/2025 [id number] 2 9+OXY CODON E+KEY PERSON -SCR benzodiazepi gladis screen, urine NEGATI VE NG/mL cutoff =200 Not Available [facility] ([facility]) [address] [place], [address], 05/19/2025 20:09:55 05/18/20 25 05/19/2025 [id number] 2 9+OXY CODON E+KEY PERSON -SCR cannabinoid screen, urine POSITI VE NG/mL cutoff =20 abnormal Not Available [facility] ([facility]) [address] [place], [address], 05/19/2025 20:09:55 05/18/2005/19/2025 [id number] 2 9+OXY CODON E+KEY PERSON -SCR cocaine (metab.) screen, urine NEGATI VE NG/mL cutoff =300 Not Available [facility] ([facility]) [address] [place], [address], 05/19/2025 20:09:55 05/18/2005/19/2025 [id number] 2 9+OXY CODON E+KEY PERSON -SCR opiate screen, urine NEGATI VE NG/mL cutoff =300 Opiat e test inclu oksana Codei ne, Morph ine, [place] morph one, [place] codon e. Not Available [facility] ([facility]) [address] [place], [address], 05/19/2025 20:09:55 05/18/20 25 05/19/2025 [id number] 2 9+OXY CODON E+KEY PERSON -SCR oxycodone/ox ymorphone, urine NEGATI VE NG/mL cutoff =100 Test inclu oksana Oxyco done and Oxymo rphon e Not Available [facility] ([facility]) [address] [place], [address], 05/19/2025 20:09:55 05/18/2005/19/2025 [id number] 2 9+OXY CODON E+KEY PERSON -SCR phencyclidin e screen, urine NEGATI VE NG/mL cutoff =25 Not Available [facility] ([facility]) [address] [place], [address], 05/19/2025 20:09:55 05/18/2005/19/2025 [id number] 2 9+OXY CODON E+KEY PERSON -SCR methadone screen, urine NEGATI VE NG/mL cutoff =300 Not Available [facility] ([facility]) [address] [place], [address], 05/19/2025 20:09:55 05/18/2005/19/2025 [id number] 2 9+OXY CODON E+KEY PERSON -SCR propoxyphene screen, urine NEGATI VE NG/mL cutoff =300 Not Available [facility] ([facility]) [address] [place], [address], 05/19/2025 20:09:55 05/18/2005/19/2025 [id number] 2 9+OXY CODON E+KEY PERSON -SCR creatinine, urine 181.6 mg/dL 20.0-3 00.0 Not Available [facility] ([facility]) [address] [place], [address], 05/19/2025 20:09:55 05/18/2005/19/2025 [id number] 2 9+OXY CODON E+KEY PERSON -SCR pH, urine 5.3 4.5-8. 9 Not Available [facility] ([facility]) [address] [place], [address], 05/19/2025 20:09:55 05/18/2005/19/2025 NUA B VAGIN ITIS PLUS (VG+) atopobium vaginae MODERA TE - 1 score Not Available [facility] ([facility]) [address] [place], [address], 05/20/2025 04:11:05 05/18/2005/19/2025 NUA B VAGIN ITIS PLUS (VG+) bvab 2 LOW - 0 score Not Available [facility] ([facility]) [address] [facility], [place], [address], 05/20/2025 04:11:05 05/18/2005/19/2025 NUA B VAGIN ITIS PLUS (VG+) megasphaera 1 LOW - 0 score Calcu late total score by shilo g the 3 indiv idual bacte rial vagin [...] prese nce of BV. Not Available [facility] ([facility]) [address] [place], [address], 05/20/2025 04:11:05 05/18/2005/19/2025 NUA B VAGIN ITIS PLUS (VG+) hua albicans, RZO NEGATI VE negati ve Not Available [facility] ([facility]) [address] [place], [address], 05/20/2025 04:11:05 05/18/2005/19/2025 NUA B VAGIN ITIS PLUS (VG+) hua glabrata, ROZ NEGATI VE negati ve Not Available [facility] ([facility]) [address] [place], [address], 05/20/2025 04:11:05 05/18/2005/20/2025 NUSWA B VAGIN ITIS PLUS (VG+) trich vag by ROZ NEGATI VE negati ve Not Available [facility] ([facility]) [address] [facility], [place], [address], 05/20/2025 04:11:05 05/18/2005/20/2025 NUA B VAGIN ITIS PLUS (VG+) chlamydia trachomatis, ROZ POSITI VE negati ve abnormal Not Available [facility] ([facility]) [address] [facility], [place], [address], 05/20/2025 04:11:05 05/18/2005/20/2025 NUA B VAGIN ITIS PLUS (VG+) neisseria gonorrhoeae, ROZ NEGATI VE negati ve Not Available [facility] ([facility]) [address] [facility], [place], [address], 05/20/2025 04:11:05 05/18/2005/22/2025 IGP,R FX APT HPV ASCU, 16/18 ,45 diagnosis: COMMEN T NEGAT SHAGUFTA FOR INTRA EPITH ELIAL LESIO N OR SIN BELLA . Not Available [facility] ([facility]) [address] [facility], [place], [address], 05/22/2025 16:23:15 05/18/2005/22/2025 IGP,R FX APT HPV ASCU, 16/18 ,45 specimen adequacy: COMMEN T Satis facto ry for evalu ation . Endoc ervic al and/o r squam ous metap lasti c cells (endo cervi [place] compo nent) are prese nt. Not Available [facility] ([facility]) [address] [place], [address], 05/22/2025 16:23:15 05/18/2005/22/2025 IGP,R FX APT HPV ASCU, 16/18 ,45 clinician provided ICD10: FARIBA Bello Z34.9 1 Not Available [facility] ([facility]) [address] [place], [address], 05/22/2025 16:23:15 05/18/2005/22/2025 IGP,R FX APT HPV ASCU, 16/18 ,45 performed by: FARIBA burris, Cytol ogjostin (ASCP ) Not Available [facility] ([facility]) [address] [place], [address], 05/22/2025 16:23:15 05/18/2005/22/2025 IGP,R FX APT HPV ASCU, 16/18 ,45 . . Not Available [facility] ([facility]) [address] [place], [address], 05/22/2025 16:23:15 05/18/2005/22/2025 IGP,R FX APT HPV [...] ts do occur . Not Available [facility] ([facility]) [address] [place], [address], 05/22/2025 16:23:15 05/18/2005/22/2025 IGP,R FX APT HPV ASCU, 16/18 ,45 test methodology: FARIBA Bello This liqui d based ThinP rep(R ) pap test was inter prete d using the Holog ic(R) Geniu s(TM) Cervi [place] Algor ithm whole slide imagi ng syste m. Not Available [facility] ([facility]) [address] [facility], [place], [address], 05/22/2025 16:23:15 05/18/2005/22/2025 IGP,R FX APT HPV ASCU, 16/18 ,45 . COMMEN T The HPV DNA refle x crite neeraj were not met with this speci men resul t there fore, no HPV testi ng was perfo rmed. Not Available [facility] ([facility]) [address] [facility], [place], [address], 05/22/2025 16:23:15 05/18/20 25 05/19/2025 HGB FRACT IONAT ION CASCA DE HGB F 1.7 % 0.0-2. 0 Not Available [facility] ([facility]) [address] [facility], [place], [address], 05/26/2025 20:10:41 05/18/20 25 05/19/2025 HGB FRACT IONAT ION CASCA DE HGB A 56.8 % 96.4-9 8.8 below low normal Not Available [facility] ([facility]) [address] [place], [address], 05/26/2025 20:10:41 05/18/20 25 05/19/2025 HGB FRACT IONAT ION CASCA DE HGB A2 2.8 % 1.8-3. 2 Not Available [facility] ([facility]) [address] [place], [address], 05/26/2025 20:10:41 05/18/20 25 05/19/2025 HGB FRACT IONAT ION CASCA DE HGB S 38.7 % 0.0 above high normal Not Available [facility] ([facility]) [address] [place], [address], 05/26/2025 20:10:41 05/18/20 25 05/19/2025 HGB FRACT IONAT ION CASCA DE interpretati on: COMMEN T Refle x to Hgb Solub ility indic ated for confi rmati on. Not Available [facility] ([facility]) [address] [facility], [place], [address], 05/26/2025 20:10:41 05/18/20 25 05/19/2025 HGB SOLUB ILITY HGB solubility Positi ve negati ve abnormal Not Available [facility]) [address] [facility], [place], [address], 05/26/2025 20:10:42 05/18/20 25 05/19/2025 HGB SOLUB [...] A2 1.8 - 4.0% Not Available [facility] ([facility]) [address] [facility], [place], [address], 05/26/2025 20:10:42 05/18/20 25 05/19/2025 INTER PRETA TION: interpretati on: Commen t Not infec mercy with HCV unles s early or acute infec tion is suspe cted (whic h may be delay ed in an immun ocomp romis ed indiv idual ), or other evide nce exist s to indic ate HCV infec tion. Not Available [facility] ([facility]) [address] [facility], [place], [address], 05/26/2025 20:10:43 05/18/20 25 05/19/2025 PREGN JUAN MANUEL, INITI AL SCREE N HBsAg screen NEGATI VE negati ve Not Available [facility] ([facility]) [address] [facility], [place], [address], 05/26/2025 20:10:43 05/18/20 25 05/19/2025 PREGN JUAN MANUEL, INITI AL SCREE N HCV Ab NON REACTI VE nonrea ctive Not Available [facility] ([facility]) [address] [place], [address], 05/26/2025 20:10:43 05/18/20 25 05/19/2025 PREGN JUAN MANUEL, INITI AL SCREE N RPR NON REACTI VE nonrea ctive Not Available [facility] ([facility]) [address] [place], [address], 05/26/2025 20:10:43 05/18/2005/19/2025 PREGN JUAN MANUEL, INITI AL SCREE N rubella antibodies, IgG 11.00 index immune >0.99 Non-i mmune <0.90 Equiv ocal 0.90 - 0.99 Immun e >0.99 Not Available [facility] ([facility]) [address] [place], [address], 05/26/2025 20:10:43 05/18/20 25 05/19/2025 PREGN JUAN MANUEL, INITI AL SCREE N ABO grouping A Not Available [facility] ([facility]) [address] [place], [address], 05/26/2025 20:10:43 05/18/20 25 05/19/2025 PREGN JUAN MANUEL, INITI AL SCREE N Rh factor POSITI VE Pleas e note: Prior recor ds for this patie nt's ABO / Rh type are not avail able for addit ional verif icati on. Not Available [facility] ([facility]) [address] [place], [address], 05/26/2025 20:10:43 05/18/20 25 05/19/2025 PREGN JUAN MANUEL, INITI AL SCREE N antibody screen NEGATI VE negati ve Not Available [facility] ([facility]) [address] [place], [address], 05/26/2025 20:10:43 05/18/2005/19/2025 PREGN JUAN MANUEL, INITI AL SCREE N HIV Ab/P24 Ag screen NON REACTI VE nonrea ctive HIV-1 /HIV- 2 antib odies and HIV-1 p24 antig en were NOT detec mercy. There is no labor atory evide nce of HIV infec tion. HIV Negat shagufta Not Available [facility] ([facility]) [address] [facility], [place], [address], 05/26/2025 20:10:43 05/18/2005/19/2025 PREGN JUAN MANUEL, INITI AL SCREE N WBC 9.3 x10e3 /uL 3.4-10 .8 Not Available [facility] ([facility]) [address] [place], [address], 05/26/2025 20:10:43 05/18/20 25 05/19/2025 PREGN JUAN MANUEL, INITI AL SCREE N RBC 4.14 x10e6 /uL 3.77-5 .28 Not Available [facility] ([facility]) [address] [facility], [place], [address], 05/26/2025 20:10:43 05/18/20 25 05/19/2025 PREGN JUAN MANUEL, INITI AL SCREE N hemoglobin 11.1 g/dL 11.1-1 5.9 Not Available [facility] ([facility]) [address] [place], [address], 05/26/2025 20:10:43 05/18/20 25 05/19/2025 PREGN JUAN MANUEL, INITI AL SCREE N hematocrit 35.8 % 34.0-4 6.6 Not Available [facility] ([facility]) [address] [place], [address], 05/26/2025 20:10:43 05/18/20 25 05/19/2025 PREGN JUAN MANUEL, INITI AL SCREE N MCV 87 fL 79-97 Not Available [facility] ([facility]) [address] [place], [address], 05/26/2025 20:10:43 05/18/20 25 05/19/2025 PREGN JUAN MANUEL, INITI AL SCREE N MCH 26.8 pg 26.6-3 3.0 Not Available [facility] ([facility]) [address] [facility], [place], [address], 05/26/2025 20:10:43 05/18/20 25 05/19/2025 PREGN JUAN MANUEL, INITI AL SCREE N MCHC 31.0 g/dL 31.5-3 5.7 below low normal Not Available [facility] ([facility]) [address] [facility], [place], [address], 05/26/2025 20:10:43 05/18/20 25 05/19/2025 PREGN JUAN MANUEL, INITI AL SCREE N RDW 13.0 % 11.7-1 5.4 Not Available [facility] ([facility]) [address] [place], [address], 05/26/2025 20:10:43 05/18/20 25 05/19/2025 PREGN JUAN MANUEL, INITI AL SCREE N platelets 305 x10e3 /uL 150-45 0 Not Available [facility] ([facility]) [address] [place], [address], 05/26/2025 20:10:43 05/18/20 25 05/19/2025 PREGN JUAN MANUEL, INITI AL SCREE N neutrophils 76 % notest ab. Not Available [facility] ([facility]) [address] [place], [address], 05/26/2025 20:10:43 05/18/20 25 05/19/2025 PREGN JUAN MANUEL, INITI AL SCREE N lymphs 19 % notest ab. Not Available [facility] ([facility]) [address] [place], [address], 05/26/2025 20:10:43 05/18/20 25 05/19/2025 PREGN JUAN MANUEL, INITI AL SCREE N monocytes 4 % notest ab. Not Available [facility] ([facility]) [address] [facility], [place], [address], 05/26/2025 20:10:43 05/18/20 25 05/19/2025 PREGN JUAN MANUEL, INITI AL SCREE N eos 1 % notest ab. Not Available [facility] ([facility]) [address] [facility], [place], [address], 05/26/2025 20:10:43 05/18/20 25 05/19/2025 PREGN JUAN MANUEL, INITI AL SCREE N basos 0 % notest ab. Not Available [facility] ([facility]) [address] [place], [address], 05/26/2025 20:10:43 05/18/20 25 05/19/2025 PREGN JUAN MANUEL, INITI AL SCREE N neutrophils (absolute) 7.0 x10e3 /uL 1.4-7. 0 Not Available [facility] ([facility]) [address] [facility], [place], [address], 05/26/2025 20:10:43 05/18/20 25 05/19/2025 PREGN JUAN MANUEL, INITI AL SCREE N lymphs (absolute) 1.8 x10e3 /uL 0.7-3. 1 Not Available [facility] ([facility]) [address] [place], [address], 05/26/2025 20:10:43 05/18/20 25 05/19/2025 PREGN JUAN MANUEL, INITI AL SCREE N monocytes(ab solute) 0.4 x10e3 /uL 0.1-0. 9 Not Available [facility] ([facility]) [address] [place], [address], 05/26/2025 20:10:43 05/18/20 25 05/19/2025 PREGN JUAN MANUEL, INITI AL SCREE N eos (absolute) 0.1 x10e3 /uL 0.0-0. 4 Not Available [facility] ([facility]) [address] [facility], [place], [address], 05/26/2025 20:10:43 05/18/20 25 05/19/2025 PREGN JUAN MANUEL, INITI AL SCREE N baso (absolute) 0.0 x10e3 /uL 0.0-0. 2 Not Available [facility] ([facility]) [address] [facility], [place], [address], 05/26/2025 20:10:43 05/18/2005/19/2025 PREGN JUAN MANUEL, INITI AL SCREE N immature granulocytes 0 % notest ab. Not Available [facility] ([facility]) [address] [facility], [place], [address], 05/26/2025 20:10:43 05/18/20 25 05/19/2025 PREGN JUAN MANUEL, INITI AL SCREE N immature grans (abs) 0.0 x10e3 /uL 0.0-0. 1 Not Available [facility] ([facility]) [address] [facility], [place], [address], 05/26/2025 20:10:43 05/18/2005/19/2025 PREGN JUAN MANUEL, INITI AL SCREE N specific gravity 1.021 1.005- 1.030 Not Available [facility] ([facility]) [address] [place], [address], 05/26/2025 20:10:43 05/18/20 25 05/19/2025 PREGN JUAN MANUEL, INITI AL SCREE N pH 5.5 5.0-7. 5 Not Available [facility] ([facility]) [address] [place], [address], 05/26/2025 20:10:43 05/18/2005/19/2025 PREGN JUAN MANUEL, INITI AL SCREE N urine-color YELLOW yellow Not Available [facility] ([facility] [address] [place], [address], 05/26/2025 20:10:43 05/18/20 25 05/19/2025 PREGN JUAN MANUEL, INITI AL SCREE N appearance CLEAR clear Not Available [facility] ([facility]) [address] [place], [address], 05/26/2025 20:10:43 05/18/2005/19/2025 PREGN JUAN MANUEL, INITI AL SCREE N WBC esterase NEGATI VE negati ve Not Available [facility] ([facility]) [address] [place], [address], 05/26/2025 20:10:43 05/18/20 25 05/19/2025 PREGN JUAN MANUEL, INITI AL SCREE N protein NEGATI VE negati ve/tra ce Not Available [facility] ([facility]) [address] [place], [address], 05/26/2025 20:10:43 05/18/20 25 05/19/2025 PREGN JUAN MANUEL, INITI AL SCREE N glucose NEGATI VE negati ve Not Available [facility] ([facility]) [address] [place], [address], 05/26/2025 20:10:43 05/18/2005/19/2025 PREGN JUAN MANUEL, INITI AL SCREE N ketones TRACE negati ve abnormal Not Available [facility] ([facility]) [address] [place], [address], 05/26/2025 20:10:43 05/18/20 25 05/19/2025 PREGN JUAN MANUEL, INITI AL SCREE N occult blood NEGATI VE negati ve Not Available [facility] ([facility]) [address] [place], [address], 05/26/2025 20:10:43 05/18/2005/19/2025 PREGN JUAN MANUEL, INITI AL SCREE N bilirubin NEGATI VE negati ve Not Available [facility] ([facility]) [address] [facility], [place], [address], 05/26/2025 20:10:43 05/18/2005/19/2025 PREGN JUAN MANUEL, INITI AL SCREE N urobilinogen ,semi-qn 0.2 mg/dL 0.2-1. 0 Not Available [facility] ([facility]) [address] [facility], [place], [address], 05/26/2025 20:10:43 05/18/2005/19/2025 PREGN JUAN MANUEL, INITI AL SCREE N nitrite, urine NEGATI VE negati ve Not Available [facility] ([facility]) [address] [facility], [place], [address], 05/26/2025 20:10:43 05/18/20 25 05/19/2025 PREGN JUAN MANUEL, INITI AL SCREE N microscopic examination COMMEN T Micro scopi c follo ws if indic ated. Not Available [facility] ([facility]) [address] [facility], [place], [address], 05/26/2025 20:10:43 05/18/20 25 05/19/2025 PREGN JUAN MANUEL, INITI AL SCREE N microscopic examination SEE BELOW: Micro scopi c was indic ated and was perfo rmed. Not Available [facility] ([facility]) [address] [facility], [place], [address], 05/26/2025 20:10:43 05/18/20 25 05/20/2025 PREGN JUAN MANUEL, INITI AL SCREE N chlamydia trachomatis, ROZ POSITI VE negati ve abnormal Not Available [facility] ([facility]) [address] [place], [address], 05/26/2025 20:10:43 05/18/20 25 05/20/2025 PREGN JUAN MANUEL, INITI AL SCREE N neisseria gonorrhoeae, ROZ NEGATI VE negati ve Not Available [facility] ([facility]) [address] [facility], [place], [address], 05/26/2025 20:10:43 05/18/2005/20/2025 PREGN JUAN MANUEL, INITI AL SCREE N urine culture,pren atal, w/gbs FINAL REPORT Not Available [facility] ([facility]) [address] [facility], [place], [address], 05/26/2025 20:10:43 05/18/2005/19/2025 MICRO SCOPI C EXAMI NATIO N WBC 0-5 /hpf 0-5 Not Available [facility] ([facility]) [address] [facility], [place], [address], 05/26/2025 20:10:44 05/18/20 25 05/19/2025 MICRO SCOPI C EXAMI NATIO N RBC 0-2 /hpf 0-2 Not Available [facility] ([facility]) [address] [facility], [place], [address], 05/26/2025 20:10:44 05/18/20 25 05/19/2025 MICRO SCOPI C EXAMI NATIO N epithelial cells (non renal) 0-10 /hpf 0-10 Not Available [facility] [address] [facility], [place], [address], 05/26/2025 20:10:44 05/18/2005/19/2025 MICRO SCOPI C EXAMI NATIO N casts None seen /lpf nonese en Not Available [facility] ([facility]) [address] [facility], [place], [address], 05/26/2025 20:10:44 05/18/20 25 05/19/2025 MICRO SCOPI C EXAMI NATIO N crystals Presen t n/a abnormal Not Available [facility] ([facility]) [address] [place], [address], 05/26/2025 20:10:44 05/18/2005/19/2025 MICRO SCOPI C EXAMI NATIO N crystal type Calciu m Oxalat e Not Available [facility] ([facility]) [address] [place], [address], 05/26/2025 20:10:44 05/18/2005/19/2025 MICRO SCOPI C EXAMI NATIO N mucus threads Presen t notest ab. Not Available [facility] ([facility]) [address] [place], [address], 05/26/2025 20:10:44 05/18/2005/19/2025 MICRO SCOPI C EXAMI NATIO N bacteria Few nonese en/few Not Available [facility] ([facility]) [address] [place], [address], 05/26/2025 20:10:44 05/18/2005/26/2025 CYSTI C FIBRO SIS, 97 VARIA NTS ethnicity COMMEN T Not Provi ded Not Available [facility] ([facility]) [address] [place], [address], 05/26/2025 20:10:44 05/18/2005/26/2025 CYSTI C FIBRO SIS, 97 VARIA NTS specimen type COMMEN T Whole Blood Not Available [facility] ([facility]) [address] [place], [address], 05/26/2025 20:10:44 05/18/2005/26/2025 CYSTI C FIBRO SIS, 97 VARIA NTS indication COMMEN T Tiffanie er Test / Scree julito Not Available [facility] ([facility]) [address] [place], [address], 05/26/2025 20:10:44 05/18/2005/26/2025 CYSTI C FIBRO SIS, 97 VARIA NTS result: COMMEN T NEGAT SHAGUFTA Not Available [facility] ([facility]) [address] [facility], [place], [address], 05/26/2025 20:10:44 05/18/2005/26/2025 CYSTI C FIBRO SIS, [...] alice n Table . Not Available [facility] ([facility]) [address] [facility], [place], [address], 05/26/2025 20:10:44 05/18/2005/26/2025 CYSTI C FIBRO SIS, [...] Couns janeth melchor e visit [email or web address] :[email or web address] [email or web address] or call [phone]). Not Available [facility] ([facility]) [address] [facility], [place], [address], 05/26/2025 20:10:44 05/18/2005/26/2025 CYSTI C FIBRO SIS, [...] (PMID :[id number]) . Not Available [facility] ([facility]) [address] [facility], [place], [address], 05/26/2025 20:10:44 05/18/2005/26/2025 CYSTI C FIBRO SIS, 97 VARIA NTS comments COMMEN T This inter preta tion is based on the clini [place] infor matio n provi ded and the curre nt under stand ing of the molec ular claudia ics of the disor clair(s ) teste d. Infor matio n about the disor clair(s ) teste d is avail able at [email or web address] :[email or web address]. Not Available [facility] ([facility]) [address] [facility], [place], [address], 05/26/2025 20:10:44 05/18/2005/26/2025 CYSTI C FIBRO SIS, 97 VARIA NTS methods/limi tations COMMEN T Next- gener ation Seque ncing (NGS) : Genom ic regio ns of inter est in the CFTR gene are selec mercy using the [employer] ience (R) hybri dizat ion captu re metho d and seque nced via the Bottle(R ) NGS platf orm. Seque ncing reads [...] detec tion is perfo rmed by CALVIN [employer] and in-ho use algor [...] ards and guide lines (Rich ards, PMID: [id number]; Henry, PMID: [id number]). Re sis is restr icted to [...] e wolfgang cteri stics deter mined by [employer] rp. It has not been clear ed or appro ifeanyi by the Food and Drug Admin istra tion. Not Available [facility] ([facility]) [address] [facility], [place], [address], 05/26/2025 20:10:44 05/18/2005/26/2025 CYSTI C FIBRO SIS, [...] ve risk estim ates. Not Available [facility] ([facility]) [address] [facility], [place], [address], 05/26/2025 20:10:44 05/18/2005/26/2025 CYSTI C FIBRO SIS, 97 VARIA NTS references COMMEN T Dejass an JL, Astyas ry C, Cutti ng GR et al. CFTR varia nt testi ng: a techn ical stand shantanu of the [facility] marv Woodard ge of Medic al Claudia ics and Genom ics ([facility] ). Claudia Med 22, 9152 (2020 ). PMID: [id number] [place] T, Ryan agrawal SG, Neva shaw BA, et al. Cysti c Fibro sis and Conge nital Absen ce of the Vas Defer ens. 2000 [[facility] 2016Sep 07]. In: Yinka MP, Araceli jasso HH, Red RA, et al., chandu rs. GeneR maria victoria molina(R) [Inte rnet] . PMID: 41532 428 Not Available [facility] ([facility]) [address] [place], [address], 05/26/2025 20:10:44 05/18/2005/26/2025 CYSTI C FIBRO SIS, 97 VARIA NTS director review/relea se COMMEN T Coy nent Type Perfo rmed At Labor atory Direc tor Techn ical Labor atory Rafael Rehman , compo nent, Corpo ratio n of , PhD proce ssing [facility], [address] , [place], [address] Techn ical Labor atory Rafael Rehman , compo nent, Corpo ratio n of , PhD re sis [facility], [address] , [place], [address] Tani estrada WSTGD 6, Rafael Rehman , compo nent Labor yakelin REIS, PhD Corpo ratio n of [facility], [address] , [place], [address] Mattie calvo sed by Queenie Yang, PhD, [facility] Not Available [facility] ([facility]) [address] [place], [address], 05/26/2025 20:10:44 05/18/2005/26/2025 CYSTI C FIBRO SIS, 97 VARIA NTS pdf . Not Available [facility] ([facility]) [address] [facility], [place], [address], 05/26/2025 20:10:44 05/18/2005/22/2025 SPINA L MUSCU LAR ATROP HY (SMA) ethnicity COMMEN T Not Provi ded Not Available [facility] ([facility]) [address] [place], [address], 05/26/2025 20:10:45 05/18/2005/22/2025 SPINA L MUSCU LAR ATROP HY (SMA) specimen type COMMEN T Whole Blood Not Available [facility] ([facility]) [address] [place], [address], 05/26/2025 20:10:45 05/18/2005/22/2025 SPINA L MUSCU LAR ATROP HY (SMA) indication COMMEN T Tiffanie er Test / Scree julito Not Available [facility] ([facility]) [address] [facility], [place], [address], 05/26/2025 20:10:45 05/18/2005/22/2025 SPINA L MUSCU LAR ATROP HY (SMA) result: COMMEN T NEGAT SHAGUFTA Not Available [facility] ([facility]) [address] [place], [address], 05/26/2025 20:10:45 05/18/2005/22/2025 SPINA L MUSCU LAR [...] mercy pregn juan manuel. Not Available [facility] ([facility]) [address] [facility], [place], [address], 05/26/2025 20:10:45 05/18/2005/22/2025 SPINA L MUSCU LAR [...] ic Couns janeth plecheyenne e visit https :[email or web address] .[facility] orp.c om/ge netic -coun aryan g or call ([email or web address] -CA S ([phone]). Not Available [facility] ([facility]) [address] [facility], [place], [address], 05/26/2025 20:10:45 05/18/2005/22/2025 SPINA L MUSCU LAR [...] decre ased movem ent. (Janell tolliver, PMID: [id number]). Treat ment is suppo rtive . Dora madrid thera pies may be avail able for some indiv idual s. Appro ximat leonid 94% of affec mercy indiv idual s have 0 copie s of the SMN1 gene; in these indiv idual s, an incre ase in the numbe r of copie s of the SMN2 gene corre lates with reduc ed disea se sever ity (Vivian Benson, PMID: [id number]). Indiv idual s with one copy [...] tiffanie er (2+0) . Not Available [facility] ([facility]) [address] [facility], [place], [address], 05/26/2025 20:10:45 05/18/2005/22/2025 SPINA L MUSCU LAR ATROP HY (SMA) comments COMMEN T This inter preta tion is based on the clini orville infor matio n provi ded and the curre nt under stand ing of the [facility] ular claudia ics of the disor clair(s ) teste d. Infor matio n about the disor clair(s ) teste d is avail able at https :[email or web address] [email or web address] ealth .[email or web address] orp.c om. Not Available [facility] ([facility]) [address] [facility], [place], [address], 05/26/2025 20:10:45 05/18/2005/22/2025 SPINA L MUSCU LAR ATROP HY (SMA) methods/limi tations COMMEN T Spina l muscu lar atrop hy: The copy numbe r of SMN1 exon 7 is asses sed relat shagufta to inter nal stand shantanu refer ence genes by quant itati ve polym erase chain react ion (qPCR ). A janellee matsandra al algor ithm calcu lates 0, 1, [...] copie s of SMN1. For tiffanie er dre vila, when two copie s of SMN1 are [...] e wolfgang cteri stics deter mined by Esote pedro [facility]ia [facility]. It has not been clear ed or appro ifeanyi by the Food and Drug Admin istra tion. Esote pedro Claudia ic [employer] is a subsi diary of [employer] ratio n of James Estrada nishi, using the brand [employer] rp. Not Available [facility] ([facility]) [address] [facility], [place], [address], 05/26/2025 20:10:45 05/18/20 25 05/22/2025 SPINA L [...] mercy in this assay Jose Raul. PMID [id number] ; Paolo. PMID 64863 250 ; Sugar man . PMID 26675 307 Not Available [facility] ([facility]) [address] [facility], [place], [address], 05/26/2025 20:10:45 05/18/2005/22/2025 SPINA L MUSCU LAR ATROP HY (SMA) references COMMEN T Jesus colón JL, Bettina candelario C, Haja Pimentel et al. Adden dum: Techn ical stand ards and guide lines for spina l muscu lar atrop hy testi arcadio. Claudia Med 23, 0862 (2020 ). [Adde ndum to PMID: 45824 580] Prior TW, Bella ME, Anni Schneider. Spina l Muscu lar Atrop hy. 1999Sep 29 ([facility] 2019Aug 04). In: Yinka MP, Araceli jasso HH, Red RA, et al., chandu rs. GeneR maria victoria molina(R) [Inte rnet] . PMID: [id number] 526 Not Available [facility] ([facility]) [address] [facility], [place], [address], 05/26/2025 20:10:45 05/18/20 25 05/22/2025 SPINA L MUSCU LAR ATROP HY (SMA) director review/relea se COMMEN T Coy nent Type Perfo rmed At iPeen atory Dire tor Techn ical Esote pedro Claudia ic Naty Strickland, PhD, compo nent, Labor atori es, CohesiveFT, FACMG proce ssing [address] , [place], [address] Techn ical Esote pedro Claudia ic Naty Strickland, PhD, compo nent, Labor atori es, CohesiveFT, FACMG re sis [address] , [place], [address] Profe ssion al Esote pedro Claudia ic Naty Strickland, PhD, compo nent iPeen atori iGrow - Dein Lernprogramm im Leben, CohesiveFT, FACMG [address] [facility], [place], [address] Elect lynnette valles relea sed by Amrik Hua , PhD, [facility] Not Available [facility] ([facility]) [address] [facility], [place], [address], 05/26/2025 20:10:45 05/18/20 25 05/22/2025 SPINA L MUSCU LAR ATROP HY (SMA) pdf . Not Available [facility] ([facility]) [address] [facility], [place], [address], 05/26/2025 20:10:45 05/18/2005/20/2025 RESUL T result 1 Commen t Mixed uroge nital demarco 50,00 0-100 ,000 colon y formi ng units per mL Not Available [facility] ([facility]) [address] [facility], [place], [address], 05/26/2025 20:10:46 05/18/2005/18/2025 pregn juan manuel test, [...] 05/18/2005/18/2025 urina lysis , dipst ick Specific [place] 1.025 Not Available In-Off ice Order Internal [...] CORE gestation SINGLE TON Not Available [facility] ([facility]) [address] [facility], [place], [address], 06/19/2025 16:20:07 06/15/20 25 06/19/2025 MATER NIT21 PLUS CORE fraction 21% Not Available [facility] ([facility]) [address] [place], [address], 06/19/2025 16:20:07 06/15/20 25 06/19/2025 MATER NIT21 PLUS CORE gestational age > or = 9W: YES Not Available [facility] ([facility]) [address] [facility], [place], [address], 06/19/2025 16:20:07 06/15/20 25 06/19/2025 MATER NIT21 PLUS CORE test result NEGATI VE Not Available [facility] ([facility]) [address] [facility], [place], [address], 06/19/2025 16:20:07 06/15/20 25 06/19/2025 MATER NIT21 PLUS CORE helper animal laboratory comments FARIBA Merino speci men showe d an expec mercy repre senta tion of chrom osome 21, 18 and 13 mater ial. Clini [place] corre latio n is dioni lujan. Not Available [facility] ([facility]) [address] [facility], [place], [address], 06/19/2025 16:20:07 06/15/20 25 06/19/2025 MATER NIT21 PLUS CORE approved by FARIBA fournier MD, PhD, Dire tor, Seque nom Labor atori es Not Available [facility] ([facility]) [address] [place], [address], 06/19/2025 16:20:07 06/15/20 25 06/19/2025 MATER NIT21 PLUS CORE trisomy 21 (down syndrome) NEGATI VE Not Available [facility] ([facility]) [address] [place], [address], 06/19/2025 16:20:07 06/15/20 25 06/19/2025 MATER NIT21 PLUS CORE trisomy 18 (correa syndrome) NEGATI VE Not Available [facility] ([facility]) [address] [place], [address], 06/19/2025 16:20:07 06/15/20 25 06/19/2025 MATER NIT21 PLUS CORE trisomy 13 (patau syndrome) NEGATI VE Not Available [facility] ([facility]) [address] [place], [address], 06/19/2025 16:20:07 06/15/20 25 06/19/2025 MATER NIT21 PLUS CORE sex COMMEN T Consi stent with Male Not Available [facility] ([facility]) [address] [place], [address], 06/19/2025 16:20:07 06/15/20 25 06/19/2025 MATER NIT21 PLUS CORE negative predictive value NOTE The Negat shagufta Predi ctive Value (NPV) for triso my 21, 18, and 13 is great er than 99%. The NPV for SCA and ESS canno t be calcu lated as SCA and ESS are only repor mercy when an abnor malit y is detec mercy. Not Available [facility] ([facility]) [address] [place], [address], 06/19/2025 16:20:07 06/15/20 25 06/19/2025 MATER NIT21 PLUS CORE positive predictive value N/A Not Available [facility] ([facility]) [address] [place], [address], 06/19/2025 16:20:07 06/15/20 25 06/19/2025 MATER NIT21 [...] yet been valid ated. Not Available [facility] ([facility]) [address] [facility], [place], [address], 06/19/2025 16:20:07 06/15/20 25 06/19/2025 MATER NIT21 PLUS CORE test method COMMEN T Circu latin g cell- free DNA was purif ied from the plasm a compo nent of mater nal blood . The extra cted DNA was then conve rted into a [employer] DNA gonsalo ry for aneup loidy re sis of chrom osome s 21, 18, and 13 via next gener ation seque ncing .[1] Optio nal findi ngs based on the test order inclu de sex chrom osome aneup loidy (SCA) [2], and enhan dao seque ncing serie s (ESS) [3], [...] s 16 and 22. Not Available [facility] ([facility]) [address] [facility], [place], [address], 06/19/2025 16:20:07 06/15/20 25 06/19/2025 MATER NIT21 PLUS CORE performance COMMEN T The perfo rmanc e wolfgang cteri stics of the Mater niT(R ) 21 PLUS labor atory -deve loped test (LDT) have been deter mined in a clini orville valid ation study with pregn ant women at incre ased risk for chrom osoma l aneup loidy .[1-4 ] Not Available [facility] ([facility]) [address] [facility], [place], [address], 06/19/2025 16:20:07 06/15/20 25 06/19/2025 MATER NIT21 PLUS CORE performance characterist ics NOTE ----- ----- ----- ----- ----- ----- ----- ----- ----- ----- ----- ---- ! Sex ! Accur acy: 99.4% ! !---- ----- ----- ----- ----- ----- ----- ----- ----- ----- ----- ---! ! Junior n (miller olivo syndr ome) ! Est. Sens# ! Est. Spec ! !---- ----- ----- ----- ----- ----- ----- ----- ----- ----- ----- ---! ! Jean Claude my 21 (Ramila Syndr ome) ! 99.1% ! 99.9% ! !---- ----- ----- ----- ----- ----- ----- ----- ----- ----- ----- ---! ! Jean Claude my 16 (Zaki keith Syndr ome) ! >99.9 % ! 99.6% ! !---- ----- ----- ----- ----- ----- ----- ----- ----- ----- ----- ---! ! Jean Claude my 11 (Sangeetha miranda Syndr ome) ! 91.7% ! 99.7% ! !---- ----- ----- ----- ----- ----- ----- ----- ----- ----- ----- ---! ! Sex Chrom osome Aneup lanette es## ! 96.2% ! 99.7% ! !---- ----- ----- ----- ----- ----- ----- ----- ----- ----- ----- ---! * As repor mercy in ISCA datab ase nstd3 7 [http s://w [email or web address] .[email or web address] .gov/ dbvar /stud ies/n std37 / ] [...] eton gesta tion only. Not Available [facility] ([facility]) [address] [facility], [place], [address], 06/19/2025 16:20:07 06/15/20 25 06/19/2025 MATER NIT21 [...] be refer red for claudia ic couns eliarcadio and offer ed invas shagufta prena brody diagn osis for confi rmati on of test resul ts.[5 ] The resul ts of this testi ng, inclu ding the benef its and limit ation s, shoul d be discu ssed with a quali fied healt karan provi clair. Pregn juan manuel manag ement decis ions, inclu ding termi natio n of the pregn juan manuel, shoul d not be based on the resul ts of these tests alone . The healt karan provi clair is respo nsibl e for [...] and Fragm in(R) ). Not Available [facility] ([facility]) [address] [facility], [place], [address], 06/19/2025 16:20:07 06/15/20 25 06/19/2025 MATER NIT21 PLUS CORE note COMMEN T [employer]. is a subsi diary of Labor atory Corpo ratio n of [employer] estelle almodovar, using the brand [employer]. This test was devel wallace and its perfo rmanc e wolfgang cteri stics deter mined by [employer]. It has not been clear ed or appro ifeanyi by the Food and Drug Admin istra tion. This labor atory is certi fied under the Clini or[place] Labor atory Impro vemen t Amend ments (CLIA ) as quali fied to perfo rm high compl exity clini orville labor atory testi ng and accre dited by the Colle paddy of [employer] can Patho logis ts (CAP) . If there is futur e clini orville need for addin g Mater niT GENOM E testi ng, this speci men will be avail able until term. [facility] sampl es will not be retai salome beyon d 60 days. [facility] patie nts will have to send a new sampl e for re-se quenc ing ([facility] Test Code: 64406 4). Not Available [facility] ([facility]) [address] [facility], [place], [address], 06/19/2025 16:20:07 06/15/20 25 06/19/2025 MATER NIT21 PLUS CORE references COMMEN T 1. Anuel LEMONS, et al. Claudia Med. 2012; 14(3) :296- 305. 2. Elke SCHAFER, et al. Prena t Diag. 2013; 33(6) :591- 597. 3. Conor C, et al. Clin Chem. 2015 Nov;6 1(4): 608-6 16. 4. Anuel LEMONS, et al. Claudia Med. 2011; 13(11 ):913 -920. 5. ACOG/ SMFM Pract ice Bulle tin No. 226, May 2020. Not Available [facility] ([facility]) [address] [facility], [place], [address], 06/19/2025 16:20:07 06/15/20 25 06/19/2025 MATER NIT21 PLUS CORE pdf . Not Available [facility] ([facility]) [address] [facility], [place], [address], 06/19/2025 16:20:07 06/15/2006/15/2025 urina lysis , dipst [...] DO Not Attach Compendium, Do Not Delete/merge, [id number] 06/15/2025 11:55:16 06/15/2006/15/2025 urina lysis , dipst ick Protein 30 Not Available In-Office Order Internal Use Only DO Not Attach Compendium DO Not Attach Compendium, Do Not Delete/merge, [id number] 06/15/2025 11:55:16 06/15/2006/15/2025 urina lysis , dipst ick pH 5.5 Not Available In-Office Order Internal Use Only DO Not Attach Compendium DO Not Attach Compendium, Do Not Delete/merge, [id number] 06/15/2025 11:55:16 06/15/2006/15/2025 urina lysis , dipst ick Blood Non-He molyze d: Trace Not Available In-Office Order Internal Use Only DO Not Attach Compendium DO Not Attach Compendium, Do Not Delete/merge, 06/15/2025 11:55:16 06/15/2006/15/2025 urina lysis , dipst ick Specific [place] 1.030 Not Available In-Off ice Order Internal Use Only DO Not Attach Compendium DO Not Attach Compendium, Do Not Delete/merge, [id number] 06/15/2025 11:55:16 06/15/2006/15/2025 urina lysis , dipst ick Ketone Negati ve Not Available In-Office Order Internal Use Only DO Not Attach Compendium DO Not Attach Compendium, Do Not Delete/merge, [id number] 06/15/2025 11:55:16 06/15/2006/15/2025 urina lysis , dipst ick Bilirubin Negati ve Not Available In-Office Order Internal Use Only DO Not Attach Compendium DO Not Attach Compendium, Do Not Delete/merge, [id number] 06/15/2025 11:55:16 06/15/2006/15/2025 urina lysis , dipst ick Glucose Negati ve Not Available In-Office Order Internal Use Only DO Not Attach Compendium DO Not Attach Compendium, Do Not Delete/merge, [id number] 06/15/2025 11:55:16 07/20/2007/20/2025 AFP, SERUM , OPEN SPINA BIFID A comment: FARIBA jalloh , Ph.D. , DABCC Direc tor Refer ences : Avail able Upon Reque st. Multi ples Of Media n Cutof fs For AFP Chetopa tions Singl eton 2.5 Black 2.8 IDD 2.0 Twins 4.5 Abbre viati on Defin ition s IDD - Insul in Dep Diabe ida OSBR - Open Spina Bifid a Risk For furth er inqui sharonda conta ct [facility] Claudia ics Servi jabari at [phone]. This test was devel oped and its perfo rmanc e wolfgang cteri stics deter mined by [facility]. It has not been clear ed or appro ifeanyi by the Food and Drug Admin istra tion. Not Available [facility] ([facility]) [address] [facility], [place], [address], 07/22/2025 03:10:47 07/20/20 25 07/21/2025 AFP, SERUM , OPEN SPINA BIFID A results REPORT Not Available [facility] ([facility]) [address] [place], [address], 07/22/2025 03:10:47 07/20/20 25 07/21/2025 AFP, SERUM , OPEN SPINA BIFID A test results: *SCREE N NEGATI VE* Not Available [facility] ([facility]) [address] [place], [address], 07/22/2025 03:10:47 07/20/20 25 07/21/2025 AFP, SERUM , OPEN SPINA BIFID A gest. age on collection date 17.6 weeks Not Available [facility] ([facility]) [address] [place], [address], 07/22/2025 03:10:47 07/20/20 25 07/21/2025 AFP, SERUM , OPEN SPINA BIFID A gestat. age based on GABE 12/24 Recal culat ions are not recom sulaiman d when gesta alexis l datin g by LMP and ultra sound are withi n 10 days. Not Available [facility] ([facility]) [address] [place], [address], 07/22/2025 03:10:47 07/20/20 25 07/21/2025 AFP, SERUM , OPEN SPINA BIFID [age] Not Available [facility] ([facility] [address] [place], [address], 07/22/2025 03:10:47 07/20/20 25 07/21/2025 AFP, SERUM , OPEN SPINA BIFID A race BLACK Not Available [facility] ([facility]) [address] [place], [address], 07/22/2025 03:10:47 07/20/20 25 07/21/2025 AFP, SERUM , OPEN SPINA BIFID A weight 142 lbs Not Available [facility] ([facility]) [address] [place], [address], 07/22/2025 03:10:47 07/20/20 25 07/21/2025 AFP, SERUM , OPEN SPINA BIFID A insulin dep diabetes NO Not Available [facility] [address] [place], [address], 07/22/2025 03:10:47 07/20/20 25 07/21/2025 AFP, SERUM , OPEN SPINA BIFID A multiple gestation NO Not Available [facility] ([facility] [address] [place], [address], 07/22/2025 03:10:47 07/20/20 25 07/21/2025 AFP, SERUM , OPEN SPINA BIFID A AFP value 60.0 NG/mL Not Available [facility] ([facility]) [address] [place], [address], 07/22/2025 03:10:47 07/20/20 25 07/21/2025 AFP, SERUM , OPEN SPINA BIFID A AFP MOM 1.30 Not Available [facility] ([facility]) [address] [facility], [place], [address], 07/22/2025 03:10:47 07/20/20 25 07/21/2025 AFP, SERUM , OPEN SPINA BIFID A OSBR risk 1 in 9606 Not Available [facility]) [address] [facility], [place], [address], 07/22/2025 03:10:47 07/20/20 25 07/21/2025 AFP, SERUM , OPEN SPINA BIFID A interpretati on COMMEN T Inter preta tion: Scree n Negat shagufta This resul t is scree n negat shagufta for OSB. The AFP MoM calcu lated is based on the gesta alexis l age provi ded. MS-AF P can ident felecia up to 80% of open neura l tube defec ts. Close d neura l tube defec ts and some open defec ts may not be detec mercy by this test. This test does not scree n for Down Syndr ome or Triso my 18. If scree julito for Down Syndr ome or Triso my 18 is fiorella ed, conta ct Claudia ic Custo alejandro Servi jabari to discu ss avail able optio ns. The James can Colle ge of Obste trici ans and Gynec ologi sts recom mends amnio cente sis be offer ed to women age 35 and older . Not Available [facility] ([facility]) [address] [facility], [place], [address], 07/22/2025 03:10:47 07/20/2007/21/2025 AFP, SERUM , OPEN SPINA BIFID A pdf . Not Available [facility] ([facility]) [address] [facility], [place], [address], 07/22/2025 03:10:47 07/20/20 25 07/21/2025 CT, NG, TRICH VAG BY ROZ chlamydia by ROZ POSITI VE negati ve abnormal Not Available [facility] ([facility]) [address] [facility], [place], [address], 07/22/2025 03:10:58 07/20/20 25 07/21/2025 CT, NG, TRICH VAG BY ROZ gonococcus by ROZ NEGATI VE negati ve Not Available [facility] ([facility]) [address] [facility], [place], [address], 07/22/2025 03:10:58 07/20/20 25 07/21/2025 CT, NG, TRICH VAG BY ROZ trich vag by ROZ NEGATI VE negati ve Not Available [facility] ([facility]) [address] [facility], [place], [address], 07/22/2025 03:10:58 07/20/20 25 07/21/2025 VARIC AALIYAH- ZOSTE R V AB, IGG varicella zoster IgG REACTI VE nonrea ctive Ple ase note refer ence inter cassidy ryder e A React shagufta resul t is consi dered evide nce of immun ity to VZV. React shagufta indic ates that VZV IgG was detec mercy consi stent with previ ous infec tion and/o r vacci natio n. A Non React shagufta resul t indic ates that VZV IgG was not detec mercy sugge sting that immun ity has not been acqui red. Not Available [facility] ([facility] [address] [facility], [place], [address], 07/22/2025 03:10:58 07/20/20 25 07/20/2025 urina lysis , dipst ick Leukocytes Negati ve Not Available In-Office Order Internal Use Only DO Not Attach Compendium DO Not Attach Compendium, Do Not Delete/merge, [id number] 07/20/2025 11:59:31 07/20/20 25 07/20/2025 urina lysis , dipst ick Nitrite negati ve Not Available In-Office Order Internal Use Only DO Not Attach Compendium DO Not Attach Compendium, Do Not Delete/merge, [id number] 07/20/2025 11:59:31 1207/20/2025 urina lysis , dipst ick Urobilinogen .2 Not Available In-Of fice Order Internal Use Only DO Not Attach Compendium DO Not Attach Compendium, Do Not Delete/merge, [facility] 07/20/2025 11:59:31 07/20/20 25 07/20/2025 urina lysis , dipst ick Protein Negati ve Not Available In-Office Order Internal Use Only DO Not Attach Compendium DO Not Attach Compendium, Do Not Delete/merge, [facility] 07/20/2025 11:59:31 07/20/2007/20/2025 urina lysis , dipst ick pH 6.0 Not Available In-Office Order Internal Use Only DO Not Attach Compendium DO Not Attach Compendium, Do Not Delete/merge, [facility] 07/20/2025 11:59:31 07/20/20 25 07/20/2025 urina lysis , dipst ick Blood Negati ve Not Available In-Office Order Internal Use Only DO Not Attach Compendium DO Not Attach Compendium, Do Not Delete/merge, [facility] 07/20/2025 11:59:31 07/20/20 25 07/20/2025 urina lysis , dipst ick Ketone Negati ve Not Available In-Office Order Internal Use Only DO Not Attach Compendium DO Not Attach Compendium, Do Not Delete/merge, [facility] 07/20/2025 11:59:31 07/20/20 25 07/20/2025 urina lysis , dipst ick Bilirubin Negati ve Not Available In-Office Order Internal Use Only DO Not Attach Compendium DO Not Attach Compendium, Do Not Delete/merge, [facility] 07/20/2025 11:59:31 07/20/20 25 07/20/2025 urina lysis , dipst ick Glucose Negati ve Not Available In-Office Order Internal Use Only DO Not Attach Compendium DO Not Attach Compendium, Do Not Delete/merge, [facility] 07/20/2025 11:59:31 07/20/20 25 07/20/2025 urina lysis , dipst ick Appearance Clear Not Available In-Offi ce Order Internal Use Only DO Not Attach Compendium DO Not Attach Compendium, Do Not Delete/merge, [id number] 07/20/2025 11:59:31 07/20/2007/20/2025 urina lysis , dipst ick Color Yellow Not Available In-Office Order Internal Use Only DO Not Attach Compendium DO Not Attach Compendium, Do Not Delete/merge, [id number] 07/20/2025 11:59:31 06/15/20 25 06/11/2025 US, obste tric, 1st trime ster No observ ation record ed. [facility] [address], [place], [address], 06/23/2025 11:14:48 Result Notes None recorded. Problems Name Problem SNOMED Code Status Onset Date Resolution Date Notes Provider Name and Address Organization Details Recorded Time Bacterial vaginosis 213852775 Active 2024 [place] Brady MD Attn: Jemal joseph,[address] [facility], [place], [address], [facility] - [facility] 5 15:23:42 34480483 Active 2024 Sarah Melendrez MA null, [place] - [facility] 5 11:39:01 History of syncope 664066442242 109 Active 2024 Not eating well, given loss of appetite. Last episode in the beginning of RYANNE ADAMS MD Attn: Jemal joseph,[address] [facility], [place], [address], [place] - [facility] 5 09:59:21 Past history of miscarria ge 661206013 Active 2024 Patient has history of 2 prior first trimester loss of First miscarria ge - bleeding, and cramping -within 5-6 weeksSeco nd miscarria ge - bleeding and cramping within 2 weeks of finding RYANNE ADAMS MD Attn: Jemal joseph,[address] [facility], [place], [address], [place] - [facility] 5 09:59:24 Sickle cell trait 20295507 Active 2024 Cali Levine MD Attn: Jemal joseph,[address] [facility], [place], [address], [facility] 18:17:41 History of chlamydia l infection 539898745 Active 2024 Cali Levine MD Attn: Jemal joseph,[address] [facility], [place], [address], [facility] 18:17:53 Marijuana user 072133526 Active 2024 Cali Levine MD Attn: Jemal joseph,[address] [facility], [place], [address], [facility] 18:21:00 Problem Notes None recorded. Procedures Surgical History Date Name Laterality Status Provider Name and Address Organization Details Recorded Time 05/18/2025 Date of Last Pap Smear completed Sarah Melendrez MA [facility] 05/18/2025 11:36:19 Imaging Results None recorded. Procedure [...] mass index (BMI) Body weight Heart rate Oxygen saturation Systolic And Diastolic Provider Name and Address Organization Details Last Updated DateTime 172.72 cm 21.6 kg/m2 98075.1 2 g 81 /min 99 % 122/74 mm[Hg] Modesta Garza MA [facility] 12:41:20 Social History Question Answer Notes LastModified by Organizat ion Details LastModified Time Tobacco Smoking Status Never Smoker Ting Gallardo MA null, [facility] 12/26/2024 09:29:24 What Is Your Level Of [...] adolescent or pediatric 3 completed Not Available [facility] 07/20/2025 11:23:58 Hep B, adolescent or pediatric 3 completed Not Available [facility] 07/20/2025 11:23:58 DTaP 3 completed Not Available [facility] 07/20/2025 11:23:58 IPV 3 completed Not Available [facility] 07/20/2025 11:23:58 pneumococcal conjugate PCV 7 3 completed Not Available [facility] 07/20/2025 11:23:58 Hib, unspecified formulation 3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
--- OUTSIDE RECORDS SUMMARY | 2025-07-25 14:53 | XMS_ITS | Data Portability ---
Author Organization [facility] Address [address] [place] [address] Assessment No assessment recorded. Plan of Treatment Reminders Order Date Submit Date Provider Last Modified By Organization Details Last Modified Time Details Appointments None recorded . Lab chlamydi a trachoma tis + neisseri a gonorrho eae + trichomo shelby vaginali s rRNA panel, ROZ+prob e 2024 025 [facility], [address], [place], [address], 5 07:54:29 urinalys is, dipstick 2024 025 [email or web address] In-Office Order, Internal Use Only DO Not Attach Compendium DO Not Attach Compendium, Do Not Delete/merge, [id number] 5 12:42:41 afp (alpha-f etoprote in) panel, maternal screen, serum 2024 025 [facility], [address] [place] [address], [address], [place], [address], 5 07:54:28 varicell a zoster virus IgG Ab, QL, IA, serum 2024 025 [facility], [address], [place], [address], 5 07:54:29 urinalys is, dipstick 2024 025 [email or web address] In-Office Order, Internal Use Only DO Not Attach Compendium DO Not Attach Compendium, Do Not Delete/merge, 12:22:12 aneuploi dy risk and X & Y analysis , chromoso me specific circulat ing cell free (CCF) DNA, maternal serum 2024 [facility], [address] [facility], [address], [place], [address], 16:20:07 pap, IG + reflex HPV if ASC-U 2024 [facility], [address], [place], [address], 08:56:38 pregnanc y test, urine 2024 [email or web address] In-Office Order, Internal Use Only DO Not Attach Compendium DO Not Attach Compendium, Do Not Delete/merge, 13:11:39 urinalys is, dipstick 2024 In-Office Order, Internal Use Only DO Not Attach Compendium DO Not Attach Compendium, Do Not Delete/merge, 12:35:08 hemoglob in (Hb) electrop horesis, blood 2024 [facility], [address], [address], [place], [address], 20:10:41 vaginal pathogen s panel, ROZ+prob e, vaginal fluid 2024 025 [facility], [address], [address], [place], [address], 04:11:05 spinal muscular atrophy (sma) mutation s, blood/ti ssue 2024 025 [facility], [address], [place], [address], 20:10:45 CFTR mutation , blood or tissue 2024 025 [facility], [address], [place], [address], 20:10:44 panel 2024 025 [facility], [address] [facility], [facility] [[email or web address] [address], [place], [address], 20:10:43 aneuploi dy risk and X & Y analysis , chromoso me specific circulat ing cell free (CCF) DNA, maternal serum 2024 025 [email or web address], [address] [facility] [address], [place], [address], 11:10:20 drug screen, urine 2024 025 [facility], [address] [facility], [facility] [[email or web address] [address], [place], [address], 20:09:55 HIV 1 + 2, meaningf ul use set 2024 025 [facility], [facility] [address], [facility] [address], [place], [address], 09:11:41 RPR (rapid plasma reagin), serum 2024 025 [facility], [facility], [facility] [address], [place], [address], 5 09:11:40 HBsAg (hepatit is B surface Ag), EIA, serum 2024 025 [facility], [facility], [facility] [address], [place], [address], 09:11:39 Hepatiti s C IgG Ab, qual, serum 2024 [facility], [address] [facility] [address], [place], [address], 5 09:11:38 vaginal pathogen s panel, ROZ+prob e, vaginal fluid 2024 025 [facility], [address] [facility] [address], [address], [place], [address], 06:14:39 Referral behavior [place] health referral 2024 025 [email or web address] [facility] (), [address] [place] [address], [address], 18:23:46 Procedures None recorded . Surgeries None recorded . Imaging US, obstetri c, maternal evaluati on + anatomy 2024 025 [email or web address], [address], [place], [address], 11:59:03 US, obstetri c, 1st trimeste r 2024 025 [facility], [address], [place], [address], 11:14:47 Medication Orders None recorded . Patient TargetsNo targets recorded. Patient Instructions Encounter Date Encounter Id Patient Instructions Last Modified By Organization Details Last Modified Time 12/26/2024 [id number] I was present in the clinic to discuss this patient at the time of the visit. I agree with the documented assessment and plan Carole Nails MD [email or web address] Not available 12/26/2024 09:51:36 05/18/2025 [id number] edinburgh depression scale* [email or web address] Not available 05/19/2025 16:27:22 I personally examined the patient with the resident physician. I agree with the findings, assessment, and plan as documented. Cali Levine MD [email or web address] Not available 05/25/2025 13:10:06 06/15/2025 [id number] I was present an d available in the clinic during the encounter. I discussed the patient's history, exam findings, and plan with the resident physician and agree with the assessment and plan as documented. MD [email or web address] Not available 06/16/2025 18:14:28 07/20/2025 [id number] I was present an d available in the clinic during the encounter. I discussed the patient's history, exam findings, and plan with the resident physician and agree with the assessment and plan as documented. MD [email or web address] [email or web address] Not available 07/22/2025 12:42:39 Reason for Referral Behavioral Health Referral f or History of depression Referring Physician: Wilbur Enciso, Hoist Operator, Encounter Date: 05/18/2025 Results Created Date Observation Date Name Description Value Unit Range Abnormal Flag Note LastModifiedBy Organization Detail LastModifiedTime 12/27/19 25 12/27/2024 INTER PRETA TION: interpretati on: Commen t Not infec mercy with HCV unles s early or acute infec tion is suspe cted (whic h may be delay ed in an immun ocomp romis ed indiv idual ), or other evide nce exist s to indic ate HCV infec tion. Not Available [facility] ([facility]) [address] [facility] [address], [place], [address], 12/27/2024 09:11:37 12/27/19 25 12/27/2024 HCV ANTIB MARQUEZ RFX TO QUANT PCR HCV Ab NON REACTI VE nonrea ctive Not Available [facility] ([facility]) [address] [facility], [place], [address], 12/27/2024 09:11:38 12/27/19 25 12/27/2024 HBSAG SCREE N HBsAg screen NEGATI VE negati ve Not Available [facility] ([facility]) [address] [facility], [place], [address], 12/27/2024 09:11:39 12/27/1912/27/2024 RPR, RFX QN RPR/C ONFIR M TP RPR NON REACTI VE nonrea ctive Not Available [facility] ([facility]) [address] [facility], [place], [address], 12/27/2024 09:11:40 12/27/1912/27/2024 HIV AB/P2 4 AG WITH REFLE X HIV Ab/P24 Ag screen NON REACTI VE nonrea ctive HIV-1 /HIV- 2 antib odies and HIV-1 p24 antig en were NOT detec mercy. There is no labor atory evide nce of HIV infec tion. HIV Negat shagufta Not Available [facility] ([facility]) [address] [facility], [place], [address], 12/27/2024 09:11:41 12/27/1912/28/2024 NUSWA B VAGIN ITIS PLUS (VG+) atopobium vaginae HIGH - 2 score abnormal Not Available [facility] ([facility]) [address] [facility], [place], [address], 12/31/2024 06:14:39 12/27/1912/28/2024 NUSWA B VAGIN ITIS PLUS (VG+) bvab 2 HIGH - 2 score abnormal Not Available [facility] ([facility]) [address] [place], [address], 12/31/2024 06:14:39 12/27/1912/28/2024 NUSWA B VAGIN ITIS [...] d be evalu ated to estab mayte de la torre osisai. Total score 3-6: Indic ates the prese nce of BV. Not Available [facility] ([facility]) [address] [place], [address], 12/31/2024 06:14:39 12/27/1912/28/2024 NUSWA B VAGIN ITIS PLUS (VG+) hua albicans, ROZ NEGATI VE negati ve Not Available [facility] ([facility]) [address] [place], [address], 12/31/2024 06:14:39 12/27/1912/28/2024 NUSWA B VAGIN ITIS PLUS (VG+) hua glabrata, ROZ NEGATI VE negati ve Not Available [facility] ([facility]) [address] [place], [address], 12/31/2024 06:14:39 12/27/1912/30/2024 NUA B VAGIN ITIS PLUS (VG+) trich vag by ROZ NEGATI VE negati ve Not Available [facility] ([facility]) [address] [place], [address], 12/31/2024 06:14:39 12/27/1912/30/2024 NUA B VAGIN ITIS PLUS (VG+) chlamydia trachomatis, ROZ NEGATI VE negati ve Not Available [facility] ([facility]) [address] [place], [address], 12/31/2024 06:14:39 12/27/1912/30/2024 NUSWA B VAGIN ITIS PLUS (VG+) neisseria gonorrhoeae, ROZ NEGATI VE negati ve Not Available [facility] ([facility]) [address] [place], [address], 12/31/2024 06:14:39 05/18/2005/18/2025 [id number] 2 9+OXY CODON E+BEST WORKER -SCR please note: COMMEN T This assay provi oksana a preli minar y uncon firme d re tical test resul t that may be suita ble for clini [place] manag ement of patie nts in certa in situa tions . Drug- test resul ts shoul d be inter prete d in the norma xt of clini [place] infor alice n. Patie nt metab olic varia bles, speci fic drug chemi stry, and speci men wolfgang cteri stics can affec t test outco me. Techn ical consu ltati on is avail able if a test resul t is incon siste nt with an expec mercy outco me. Email : [email or web address] Phone : [phone] Not Available [facility] ([facility]) [address] [place], [address], 05/19/2025 20:09:55 05/18/2005/19/2025 [id number] 2 9+OXY CODON E+BEST WORKER -SCR amphetamines screen, urine NEGATI VE NG/mL cutoff =1000 Not Available [facility] ([facility]) [address] [place], [address], 05/19/2025 20:09:55 05/18/2005/19/2025 [id number] 2 9+OXY CODON E+BEST WORKER -SCR barbiturates screen, urine NEGATI VE NG/mL cutoff =200 Not Available [facility] ([facility]) [address] [place], [address], 05/19/2025 20:09:55 05/18/2005/19/2025 [id number] 2 9+OXY CODON E+BEST WORKER -SCR benzodiazepi gladis screen, urine NEGATI VE NG/mL cutoff =200 Not Available [facility] ([facility]) [address] [place], [address], 05/19/2025 20:09:55 05/18/20 25 05/19/2025 [id number] 2 9+OXY CODON E+BEST WORKER -SCR cannabinoid screen, urine POSITI VE NG/mL cutoff =20 abnormal Not Available [facility] ([facility]) [address] [place], [address], 05/19/2025 20:09:55 05/18/20 25 05/19/2025 [id number] 2 9+OXY CODON E+BEST WORKER -SCR cocaine (metab.) screen, urine NEGATI VE NG/mL cutoff =300 Not Available [facility] ([facility]) [address] [place], [address], 05/19/2025 20:09:55 05/18/20 25 05/19/2025 [id number] 2 9+OXY CODON E+BEST WORKER -SCR opiate screen, urine NEGATI VE NG/mL cutoff =300 Opiat e test inclu oksana Codei ne, Morph ine, Clark morph one, Clark codon e. Not Available [facility] ([facility]) [address] [place], [address], 05/19/2025 20:09:55 05/18/20 25 05/19/2025 [id number] 2 9+OXY CODON E+BEST WORKER -SCR oxycodone/ox ymorphone, urine NEGATI VE NG/mL cutoff =100 Test inclu oksana Oxyco done and Oxymo rphon e Not Available [facility] ([facility]) [address] [place], [address], 05/19/2025 20:09:55 05/18/20 25 05/19/2025 [id number] 2 9+OXY CODON E+BEST WORKER -SCR phencyclidin e screen, urine NEGATI VE NG/mL cutoff =25 Not Available [facility] ([facility]) [address] [place], [address], 05/19/2025 20:09:55 10/13/05/19/2025 [id number] 2 9+OXY CODON E+BEST WORKER -SCR methadone screen, urine NEGATI VE NG/mL cutoff =300 Not Available [facility] ([facility]) [address] [place], [address], 05/19/2025 20:09:55 05/18/2005/19/2025 [id number] 2 9+OXY CODON E+BEST WORKER -SCR propoxyphene screen, urine NEGATI VE NG/mL cutoff =300 Not Available [facility] ([facility]) [address] [place], [address], 05/19/2025 20:09:55 05/18/2005/19/2025 [id number] 2 9+OXY CODON E+BEST WORKER -SCR creatinine, urine 181.6 mg/dL 20.0-3 00.0 Not Available [facility] ([facility]) [address] [place], [address], 05/19/2025 20:09:55 05/18/2005/19/2025 [id number] 2 9+OXY CODON E+BEST WORKER -SCR pH, urine 5.3 4.5-8. 9 Not Available [facility] ([facility]) [address] [place], [address], 05/19/2025 20:09:55 05/18/2005/19/2025 NUSWA B VAGIN ITIS PLUS (VG+) atopobium vaginae MODERA TE - 1 score Not Available [facility] ([facility]) [address] [place], [address], 05/20/2025 04:11:05 05/18/2005/19/2025 NUSWA B VAGIN ITIS PLUS (VG+) bvab 2 LOW - 0 score Not Available [facility] ([facility]) [address] [place], [address], 05/20/2025 04:11:05 05/18/2005/19/2025 NUSWA B VAGIN ITIS [...] prese nce of BV. Not Available [facility] ([facility]) [address] [place], [address], 05/20/2025 04:11:05 05/18/2005/19/2025 NUSWA B VAGIN ITIS PLUS (VG+) hua albicans, ROZ NEGATI VE negati ve Not Available [facility] ([facility]) [address] [place], [address], 05/20/2025 04:11:05 05/18/2005/19/2025 NUA B VAGIN ITIS PLUS (VG+) hua glabrata, ROZ NEGATI VE negati ve Not Available [facility] ([facility]) [address] [place], [address], 05/20/2025 04:11:05 05/18/2005/20/2025 NUA B VAGIN ITIS PLUS (VG+) trich vag by ROZ NEGATI VE negati ve Not Available [facility] ([facility]) [address] [place], [address], 05/20/2025 04:11:05 05/18/2005/20/2025 NUSWA B VAGIN ITIS PLUS (VG+) chlamydia trachomatis, ROZ POSITI VE negati ve abnormal Not Available [facility] ([facility]) [address] [place], [address], 05/20/2025 04:11:05 05/18/2005/20/2025 NUSWA B VAGIN ITIS PLUS (VG+) neisseria gonorrhoeae, ROZ NEGATI VE negati ve Not Available [facility] ([facility]) [address] [place], [address], 05/20/2025 04:11:05 05/18/2005/22/2025 IGP,R FX APT HPV ASCU, 16/18 ,45 diagnosis: COMMEN T NEGAT SHAGUFTA FOR INTRA EPITH ELIAL LESIO N OR SIN BELLA . Not Available [facility] ([facility]) [address] [facility], [place], [address], 05/22/2025 16:23:15 05/18/2005/22/2025 IGP,R FX APT HPV ASCU, 16/18 ,45 specimen adequacy: FARIBA T Satis facto ry for evalu ation . Endoc ervic al and/o r squam ous metap lasti c cells (endo cervi [place] compo nent) are prese nt. Not Available [facility] ([facility]) [address] [facility], [place], [address], 05/22/2025 16:23:15 05/18/2005/22/2025 IGP,R FX APT HPV ASCU, 16/18 ,45 clinician provided ICD10: FARIBA Bello Z34.9 1 Not Available [facility] ([facility]) [address] [place], [address], 05/22/2025 16:23:15 05/18/2005/22/2025 IGP,R FX APT HPV ASCU, 16/18 ,45 performed by: FARIBA burris, Cytol ogist (ASCP ) Not Available [facility] ([facility]) [address] [place], [address], 05/22/2025 16:23:15 05/18/2005/22/2025 IGP,R FX APT HPV ASCU, 16/18 ,45 . . Not Available [facility] ([facility]) [address] [place], [address], 05/22/2025 16:23:15 05/18/2005/22/2025 IGP,R FX APT HPV [...] ts do occur . Not Available [facility] ([facility]) [address] [place], [address], 05/22/2025 16:23:15 05/18/2005/22/2025 IGP,R FX APT HPV ASCU, 16/18 ,45 test methodology: COMMEN T This liqui d based ThinP rep(R ) pap test was inter prete d using the Holog ic(R) Geniu s(TM) Cervi orville Algor ithm whole slide imagi ng syste m. Not Available [facility] ([facility]) [address] [place], [address], 05/22/2025 16:23:15 05/18/2005/22/2025 IGP,R FX APT HPV ASCU, 16/18 ,45 . COMMEN T The HPV DNA refle x crite neeraj were not met with this speci men resul t there fore, no HPV testi ng was perfo rmed. Not Available [facility] ([facility]) [address] [place], [address], 05/22/2025 16:23:15 05/18/2005/19/2025 HGB FRACT IONAT ION CASCA DE HGB F 1.7 % 0.0-2. 0 Not Available [facility] ([facility]) [address] [facility], [place], [address], 05/26/2025 20:10:41 05/18/20 25 05/19/2025 HGB FRACT IONAT ION CASCA DE HGB A 56.8 % 96.4-9 8.8 below low normal Not Available [facility] ([facility]) [address] [facility], [place], [address], 05/26/2025 20:10:41 05/18/2005/19/2025 HGB FRACT IONAT ION CASCA DE HGB A2 2.8 % 1.8-3. 2 Not Available [facility] ([facility]) [address] [facility], [place], [address], 05/26/2025 20:10:41 05/18/20 25 05/19/2025 HGB FRACT IONAT ION CASCA DE HGB S 38.7 % 0.0 above high normal Not Available [facility] ([facility]) [address] [facility], [place], [address], 05/26/2025 20:10:41 05/18/20 25 05/19/2025 HGB FRACT IONAT ION CASCA DE interpretati on: COMMEN T Refle x to Hgb Solub ility indic ated for confi rmati on. Not Available [facility] ([facility]) [address] [place], [address], 05/26/2025 20:10:41 05/18/20 25 05/19/2025 HGB SOLUB ILITY HGB solubility Positi ve negati ve abnormal Not Available [facility] ([facility]) [address] [place], [address], 05/26/2025 20:10:42 05/18/20 25 05/19/2025 HGB SOLUB ILITY final interpretati on: Commen t Hemog lobin patte rn and rik ntrat ions are consi stent with sickl e cell trait (hete rozyg ous). Sugge st clini [place] and hemat ologi c corre latio n. Sickl e Trait Inter preta tion Range s Hgb A 50.0 - 70.0% Hgb S 30.0 - 45.0% Hgb A2 1.8 - 4.0% Not Available [facility] ([facility]) [address] [facility], [place], [address], 05/26/2025 20:10:42 05/18/20 25 05/19/2025 INTER PRETA TION: interpretati on: Commen t Not infec mercy with HCV unles s early or acute infec tion is suspe cted (whic h may be delay ed in an immun ocomp romis ed indiv idual ), or other evide nce exist s to indic ate HCV infec tion. Not Available [facility] ([facility]) [address] [facility], [place], [address], 05/26/2025 20:10:43 05/18/2005/19/2025 PREGN JUAN MANUEL, INITI AL SCREE N HBsAg screen NEGATI VE negati ve Not Available [facility] ([facility]) [address] [place], [address], 05/26/2025 20:10:43 05/18/20 25 05/19/2025 PREGN JUAN MANUEL, INITI AL SCREE N HCV Ab NON REACTI VE nonrea ctive Not Available [facility] ([facility]) [address] [place], [address], 05/26/2025 20:10:43 05/18/20 25 05/19/2025 PREGN JUAN MANUEL, INITI AL SCREE N RPR NON REACTI VE nonrea ctive Not Available [facility] ([facility]) [address] [place], [address], 05/26/2025 20:10:43 05/18/2005/19/2025 PREGN JUAN MANUEL, INITI AL SCREE N rubella antibodies, IgG 11.00 index immune >0.99 Non-i mmune <0.90 Equiv ocal 0.90 - 0.99 Immun e >0.99 Not Available [facility] ([facility]) [address] [facility], [place], [address], 05/26/2025 20:10:43 05/18/2005/19/2025 PREGN JUAN MANUEL, INITI AL SCREE N ABO grouping A Not Available [facility] ([facility]) [address] [place], [address], 05/26/2025 20:10:43 05/18/2005/19/2025 PREGN JUAN MANUEL, INITI AL SCREE N Rh factor POSITI VE Pleas e note: Prior recor ds for this patie nt's ABO / Rh type are not avail able for addit ional verif icati on. Not Available [facility] ([facility]) [address] [facility], [place], [address], 05/26/2025 20:10:43 05/18/20 25 05/19/2025 PREGN JUAN MANUEL, INITI AL SCREE N antibody screen NEGATI VE negati ve Not Available [facility] ([facility]) [address] [place], [address], 05/26/2025 20:10:43 05/18/2005/19/2025 PREGN JUAN MANUEL, INITI AL SCREE N HIV Ab/P24 Ag screen NON REACTI VE nonrea ctive HIV-1 /HIV- 2 antib odies and HIV-1 p24 antig en were NOT detec mercy. There is no labor atory evide nce of HIV infec tion. HIV Negat shagufta Not Available [facility] ([facility]) [address] [place], [address], 05/26/2025 20:10:43 05/18/20 25 05/19/2025 PREGN JUAN MANUEL, INITI AL SCREE N WBC 9.3 x10e3 /uL 3.4-10 .8 Not Available [facility] ([facility]) [address] [place], [address], 05/26/2025 20:10:43 05/18/20 25 05/19/2025 PREGN JUAN MANUEL, INITI AL SCREE N RBC 4.14 x10e6 /uL 3.77-5 .28 Not Available [facility] ([facility]) [address] [facility], [place], [address], 05/26/2025 20:10:43 05/18/2005/19/2025 PREGN JUAN MANUEL, INITI AL SCREE N hemoglobin 11.1 g/dL 11.1-1 5.9 Not Available [facility] ([facility]) [address] [place], [address], 05/26/2025 20:10:43 05/18/20 25 05/19/2025 PREGN JUAN MANUEL, INITI AL SCREE N hematocrit 35.8 % 34.0-4 6.6 Not Available [facility] ([facility]) [address] [place], [address], 05/26/2025 20:10:43 05/18/20 25 05/19/2025 PREGN JUAN MANUEL, INITI AL SCREE N MCV 87 fL 79-97 Not Available [facility] ([facility]) [address] [place], [address], 05/26/2025 20:10:43 05/18/20 25 05/19/2025 PREGN JUAN MANUEL, INITI AL SCREE N MCH 26.8 pg 26.6-3 3.0 Not Available [facility] ([facility]) [address] [place], [address], 05/26/2025 20:10:43 05/18/20 25 05/19/2025 PREGN JUAN MANUEL, INITI AL SCREE N MCHC 31.0 g/dL 31.5-3 5.7 below low normal Not Available [facility] ([facility]) [address] [facility], [place], [address], 05/26/2025 20:10:43 05/18/20 25 05/19/2025 PREGN JUAN MANUEL, INITI AL SCREE N RDW 13.0 % 11.7-1 5.4 Not Available [facility] ([facility]) [address] [facility], [place], [address], 05/26/2025 20:10:43 05/18/20 25 05/19/2025 PREGN JUAN MANUEL, INITI AL SCREE N platelets 305 x10e3 /uL 150-45 0 Not Available [facility] ([facility]) [address] [facility], [place], [address], 05/26/2025 20:10:43 05/18/20 25 05/19/2025 PREGN JUAN MANUEL, INITI AL SCREE N neutrophils 76 % notest ab. Not Available [facility] ([facility]) [address] [facility], [place], [address], 05/26/2025 20:10:43 05/18/20 25 05/19/2025 PREGN JUAN MANUEL, INITI AL SCREE N lymphs 19 % notest ab. Not Available [facility] ([facility]) [address] [facility], [place], [address], 05/26/2025 20:10:43 05/18/20 25 05/19/2025 PREGN JUAN MANUEL, INITI AL SCREE N monocytes 4 % notest ab. Not Available [facility] ([facility]) [address] [facility], [place], [address], 05/26/2025 20:10:43 05/18/20 25 05/19/2025 PREGN JUAN MANUEL, INITI AL SCREE N eos 1 % notest ab. Not Available [facility] ([facility]) [address] [facility] [address], [place], [address], 05/26/2025 20:10:43 05/18/2005/19/2025 PREGN JUAN MANUEL, INITI AL SCREE N basos 0 % notest ab. Not Available [facility] ([facility]) [address] [place], [place], [address], 05/26/2025 20:10:43 05/18/20 25 05/19/2025 PREGN JUAN MANUEL, INITI AL SCREE N neutrophils (absolute) 7.0 x10e3 /uL 1.4-7. 0 Not Available [facility] ([facility]) [address] [place], [address], 05/26/2025 20:10:43 05/18/2005/19/2025 PREGN JUAN MANUEL, INITI AL SCREE N lymphs (absolute) 1.8 x10e3 /uL 0.7-3. 1 Not Available [facility] ([facility]) [address] [place], [address], 05/26/2025 20:10:43 05/18/20 25 05/19/2025 PREGN JUAN MANUEL, INITI AL SCREE N monocytes(ab solute) 0.4 x10e3 /uL 0.1-0. 9 Not Available [facility] ([facility]) [address] [place], [address], 05/26/2025 20:10:43 05/18/20 25 05/19/2025 PREGN JUAN MANUEL, INITI AL SCREE N eos (absolute) 0.1 x10e3 /uL 0.0-0. 4 Not Available [facility] ([facility]) [address] [place], [address], 05/26/2025 20:10:43 05/18/20 25 05/19/2025 PREGN JUAN MANUEL, INITI AL SCREE N baso (absolute) 0.0 x10e3 /uL 0.0-0. 2 Not Available [facility] ([facility]) [address] [place], [address], 05/26/2025 20:10:43 05/18/20 25 05/19/2025 PREGN JUAN MANUEL, INITI AL SCREE N immature granulocytes 0 % notest ab. Not Available [facility] ([facility]) [address] [place], [address], 05/26/2025 20:10:43 05/18/20 25 05/19/2025 PREGN JUAN MANUEL, INITI AL SCREE N immature grans (abs) 0.0 x10e3 /uL 0.0-0. 1 Not Available [facility] ([facility]) [address] [place], [address], 05/26/2025 20:10:43 05/18/2005/19/2025 PREGN JUAN MANUEL, INITI AL SCREE N specific gravity 1.021 1.005- 1.030 Not Available [facility] ([facility]) [address] [place], [address], 05/26/2025 20:10:43 05/18/20 25 05/19/2025 PREGN JUAN MANUEL, INITI AL SCREE N pH 5.5 5.0-7. 5 Not Available [facility] ([facility]) [address] [place], [address], 05/26/2025 20:10:43 05/18/20 25 05/19/2025 PREGN JUAN MANUEL, INITI AL SCREE N urine-color YELLOW yellow Not Available [facility] ([facility]) [address] [place], [address], 05/26/2025 20:10:43 05/18/20 25 05/19/2025 PREGN JUAN MANUEL, INITI AL SCREE N appearance CLEAR clear Not Available [facility] ([facility]) [address] [place], [address], 05/26/2025 20:10:43 05/18/20 25 05/19/2025 PREGN JUAN MANUEL, INITI AL SCREE N WBC esterase NEGATI VE negati ve Not Available [facility] ([facility]) [address] [place], [address], 05/26/2025 20:10:43 05/18/2005/19/2025 PREGN JUAN MANUEL, INITI AL SCREE N protein NEGATI VE negati ve/tra ce Not Available [facility] ([facility]) [address] [place], [address], 05/26/2025 20:10:43 05/18/2005/19/2025 PREGN JUAN MANUEL, INITI AL SCREE N glucose NEGATI VE negati ve Not Available [facility] ([facility]) [address] [place], [address], 05/26/2025 20:10:43 05/18/2005/19/2025 PREGN JUAN MANUEL, INITI AL SCREE N ketones TRACE negati ve abnormal Not Available [facility] ([facility]) [address] [place], [address], 05/26/2025 20:10:43 05/18/2005/19/2025 PREGN JUAN MANUEL, INITI AL SCREE N occult blood NEGATI VE negati ve Not Available [facility] ([facility]) [address] [place], [address], 05/26/2025 20:10:43 05/18/2005/19/2025 PREGN JUAN MANUEL, INITI AL SCREE N bilirubin NEGATI VE negati ve Not Available [facility] ([facility]) [address] [place], [address], 05/26/2025 20:10:43 05/18/20 25 05/19/2025 PREGN JUAN MANUEL, INITI AL SCREE N urobilinogen ,semi-qn 0.2 mg/dL 0.2-1. 0 Not Available [facility] ([facility]) [address] [place], [address], 05/26/2025 20:10:43 05/18/2005/19/2025 PREGN JUAN MANUEL, INITI AL SCREE N nitrite, urine NEGATI VE negati ve Not Available [facility] ([facility]) [address] [facility], [place], [address], 05/26/2025 20:10:43 05/18/2005/19/2025 PREGN JUAN MANUEL, INITI AL SCREE N microscopic examination COMMEN T Micro scopi c follo ws if indic ated. Not Available [facility] ([facility]) [address] [facility], [place], [address], 05/26/2025 20:10:43 05/18/2005/19/2025 PREGN JUAN MANUEL, INITI AL SCREE N microscopic examination SEE BELOW: Micro scopi c was indic ated and was perfo rmed. Not Available [facility] ([facility]) [address] [facility], [place], [address], 05/26/2025 20:10:43 05/18/2005/20/2025 PREGN JUAN MANUEL, INITI AL SCREE N chlamydia trachomatis, ROZ POSITI VE negati ve abnormal Not Available [facility] ([facility]) [address] [facility], [place], [address], 05/26/2025 20:10:43 05/18/2005/20/2025 PREGN JUAN MANUEL, INITI AL SCREE N neisseria gonorrhoeae, ROZ NEGATI VE negati ve Not Available [facility] ([facility]) [address] [facility], [place], [address], 05/26/2025 20:10:43 05/18/2005/20/2025 PREGN JUAN MANUEL, INITI AL SCREE N urine culture,pren atal, w/gbs FINAL REPORT Not Available [facility] ([facility]) [address] [place], [address], 05/26/2025 20:10:43 05/18/20 05/19/2025 MICRO SCOPI C EXAMI NATIO N WBC 0-5 /hpf 0-5 Not Available [facility] ([facility]) [address] [facility], [place], [address], 05/26/2025 20:10:44 05/18/20 25 05/19/2025 MICRO SCOPI C EXAMI NATIO N RBC 0-2 /hpf 0-2 Not Available [facility] ([facility]) [address] [facility], [place], [address], 05/26/2025 20:10:44 05/18/2005/19/2025 MICRO SCOPI C EXAMI NATIO N epithelial cells (non renal) 0-10 /hpf 0-10 Not Available [facility] ([facility]) [address] [facility], [place], [address], 05/26/2025 20:10:44 05/18/2005/19/2025 MICRO SCOPI C EXAMI NATIO N casts None seen /lpf nonese en Not Available [facility] ([facility]) [address] [facility], [place], [address], 05/26/2025 20:10:44 05/18/20 25 05/19/2025 MICRO SCOPI C EXAMI NATIO N crystals Presen t n/a abnormal Not Available [facility] ([facility]) [address] [facility], [place], [address], 05/26/2025 20:10:44 05/18/2005/19/2025 MICRO SCOPI C EXAMI NATIO N crystal type Calciu m Oxalat e Not Available [facility] ([facility]) [address] [facility], [place], [address], 05/26/2025 20:10:44 05/18/20 25 05/19/2025 MICRO SCOPI C EXAMI NATIO N mucus threads Presen t notest ab. Not Available [facility] ([facility]) [address] [facility], [place], [address], 05/26/2025 20:10:44 05/18/2005/19/2025 MICRO SCOPI C EXAMI NATIO N bacteria Few nonese en/few Not Available [facility] ([facility]) [address] [facility], [place], [address], 05/26/2025 20:10:44 05/18/2005/26/2025 CYSTI C FIBRO SIS, 97 VARIA NTS ethnicity COMMEN T Not Provi ded Not Available [facility] ([facility]) [address] [facility], [place], [address], 05/26/2025 20:10:44 05/18/2005/26/2025 CYSTI C FIBRO SIS, 97 VARIA NTS specimen type COMMEN T Whole Blood Not Available [facility] ([facility]) [address] [place], [address], 05/26/2025 20:10:44 05/18/2005/26/2025 CYSTI C FIBRO SIS, 97 VARIA NTS indication COMMEN T Tiffanie er Test / Scree julito Not Available [facility] ([facility]) [address] [place], [address], 05/26/2025 20:10:44 05/18/2005/26/2025 CYSTI C FIBRO SIS, 97 VARIA NTS result: COMMEN T NEGAT SHAGUFTA Not Available [facility] ([facility]) [address] [place], [address], 05/26/2025 20:10:44 05/18/2005/26/2025 CYSTI C FIBRO SIS, [...] alice n Table . Not Available [facility] ([facility]) [address] [facility], [place], [address], 05/26/2025 20:10:44 05/18/20 25 05/26/2025 CYSTI C FIBRO SIS, 97 VARIA NTS recommendati ons COMMEN T If the above resul t is posit shagufta, claudia ic couns eling is recom sulaiman d to discu ss the poten tial clini [place] and/o r repro ducti ve impli catio ns, as well as recom menda tions for testi ng famil y membe rs and, when appli cable , this indiv idual 's partn er. Claudia ic couns eling servi jabari are avail able. To acces s [facility] Claudia ic Couns janeth plecheyenne e visit https ://[email or web address] orp.c om/ge netic -coun aryan g or call [phone] -CA LLS ([phone]). Not Available [facility] ([facility]) [address] [facility], [place], [address], 05/26/2025 20:10:44 05/18/20 25 05/26/2025 CYSTI C [...] (PMID :2030 1420) . Not Available [facility] ([facility]) [address] [facility], [place], [address], 05/26/2025 20:10:44 05/18/2005/26/2025 CYSTI C FIBRO SIS, 97 VARIA NTS comments COMMEN T This inter preta tion is based on the clini [place] infor matpatty n provi ded and the curre nt under stand ing of the Apptentive ular claudia ics of the disor clair(s ) teste d. Infor alice gonzalez about the disor clair(s ) teste d is avail able at https :[email or web address] .[email or web address] orp.[email or web address] om. Not Available [facility] ([facility]) [address] [facility], [place], [address], 05/26/2025 20:10:44 05/18/2005/26/2025 CYSTI C FIBRO SIS, 97 VARIA NTS methods/limi tations COMMEN T Next- gener ation Seque ncing (NGS) : Genom ic regio ns of inter est in the CFTR gene are selec mercy using the b3 bio ience (R) hybri dizat ion captu re metho d and seque nced via the BEKIZ blaise(R ) NGS platf orm. Seque ncing reads [...] tion is perfo rmed by CALVIN Gonzalez [employer] and in-ho use algor ithms . Confi rmato ry testi ng is done by Teresita peña ncing . Varia nts are speci fied using the numbe ring and nomen clatu re recom sulaiman d by the Human Genom e Varia tion Socie ty (HGVS , http: //www .hgvs .org/ ). Varia nt class ifica tion and confi rmati on are consi stent with ACMG stand ards and guide lines (Rich ards, PMID: 53709 868; Henry, PMID: 50599 774). Re sis is restr icted to [...] e wolfgang cteri stics deter mined by [employer] rp. It has not been clear ed or appro ifeanyi by the Food and Drug Admin istra tion. Not Available [facility] ([facility]) [address] [facility], [place], [address], 05/26/2025 20:10:44 05/18/20 25 05/26/2025 CYSTI C [...] ve risk estim ates. Not Available [facility] ([facility]) [address] [facility], [place], [address], 05/26/2025 20:10:44 05/18/2005/26/2025 CYSTI C FIBRO SIS, 97 VARIA NTS references COMMEN T Jesus colón JL, Astbu ry C, Cutti ng GR et al. CFTR varia nt testi ng: a techn ical stand shantanu of the [employer] [facility] of Medic al Claudia ics and Genom ics ([facility] ). Claudia Med 22, 5233 (2020 ). PMID: 24880 922 [place] T, Ryan agrawal SG, Neva shaw BA, et al. Cysti c Fibro sis and Conge nital Absen ce of the Vas Defer ens. 2000 [Upda mercy 2016 2]. In: Yinka MP, Araceli jasso HH, Red RA, et al., chandu rs. GeneR maria victoria molina(R) [Inte rnet] . PMID: 92586 428 Not Available [facility] ([facility]) [address] [facility], [place], [address], 05/26/2025 20:10:44 05/18/2005/26/2025 CYSTI C FIBRO SIS, 97 VARIA NTS director review/relea se COMMEN T [place] nent Type Perfo rmed At Labor atory Direc tor Techn ical Labor atory Rafael Rehman , compo nent, Corpo ratio n of , PhD proce ssing [place], [address] [employer] [address] , [place], [address] Techn ical Labor atory Alishajelisa Rehman , compo nent, Corpo ratio n of , PhD re sis [facility], [address] , [place], [address] Profandrey estrada WSTGD 6, Rafael Rehman , compo nent Labor atory , PhD Corpo ratio n of [facility], [address] [address] , [place], [address] Elect lynnette valles relea sed by Queenie Yang, PhD, [facility] Not Available [facility] ([facility]) [address] [facility], [place], [address], 05/26/2025 20:10:44 05/18/20 25 05/26/2025 CYSTI C FIBRO SIS, 97 VARIA NTS pdf . Not Available [facility] ([facility]) [address] [place], [address], 05/26/2025 20:10:44 05/18/20 25 05/22/2025 SPINA L MUSCU LAR ATROP HY (SMA) ethnicity COMMEN T Not Provi ded Not Available [facility] ([facility]) [address] [facility], [place], [address], 05/26/2025 20:10:45 05/18/20 25 05/22/2025 SPINA L MUSCU LAR ATROP HY (SMA) specimen type COMMEN T Whole Blood Not Available [facility] ([facility]) [address] [facility], [place], [address], 05/26/2025 20:10:45 05/18/2005/22/2025 SPINA L MUSCU LAR ATROP HY (SMA) indication COMMEN T Tiffanie er Test / Scree julito Not Available [facility] ([facility]) [address] [facility], [place], [address], 05/26/2025 20:10:45 05/18/20 25 05/22/2025 SPINA L MUSCU LAR ATROP HY (SMA) result: COMMEN T NEGAT SHAGUFTA Not Available [facility] ([facility]) [address] [facility], [place], [address], 05/26/2025 20:10:45 05/18/20 25 05/22/2025 SPINA L [...] mercy pregn juan manuel. Not Available [facility] ([facility]) [address] [facility], [place], [address], 05/26/2025 20:10:45 05/18/20 25 05/22/2025 SPINA L [...] acces s [facility] Claudia ic Couns elors pleas e visit https :[email or web address] .[email or web address] orp.c om/ge netic -coun aryan jake or call [phone] GC-CA LLS ([phone]). Not Available [facility] ([facility]) [address] [facility], [place], [address], 05/26/2025 20:10:45 05/18/20 25 05/22/2025 SPINA L [...] decre ased movem ent. (Janell tolliver, PMID: 42658 59). Treat ment is suppo rtive . [...] disea se sever ity (Vivian Benson, PMID: 51684 208). Indiv idual s with one copy [...] tiffanie er (2+0) . Not Available [facility] ([facility]) [address] [facility], [place], [address], 05/26/2025 20:10:45 05/18/2005/22/2025 SPINA L MUSCU LAR ATROP HY (SMA) comments COMMEN T This inter preta tion is based on the clini [place] infor matio n provi ded and the curre nt under stand ing of the molec ular claudia ics of the disor clair(s ) teste d. Infor matpatty n about the disor clair(s ) teste d is avail able at https ://[facility] .[email or web address] orp.c om. Not Available [facility] ([facility]) [address] [facility], [place], [address], 05/26/2025 20:10:45 05/18/2005/22/2025 SPINA L MUSCU LAR [...] allel ic discr imina tion qPCR duane tinoco c.*3+ 80T>G in SMN1 is perfo rmed. [...] e wolfgang cteri stics deter mined by [employer]. It has not been clear ed or appro ifeanyi by the Food and Drug Admin istra tion. [employer] is a subsi diary of 4meee Corpo ratio n of Ameri ca Holdi ngs, using the brand [employer] rp. Not Available [facility] ([facility]) [address], [place], [address], 05/26/2025 20:10:45 05/18/20 25 05/22/2025 SPINA L [...] oksana tiffanie ers who are silen t tifafnie ers (2+0) and tiffanie ers with a patho gen ic varia nt not detec mercy in this assay Jose Raul. PMID 73513 085 ; Paolo. PMID 03458 250 ; Sugar man . PMID 94331 307 Not Available [facility] ([facility]) [address] [facility], [place], [address], 05/26/2025 20:10:45 05/18/20 25 05/22/2025 SPINA L MUSCU LAR ATROP HY (SMA) references COMMZELDA T Jesus colón JL, Bettina candelario C, Haja Pimentel et al. Adden dum: Techn ical stand ards and guide lines for spina l muscu lar atrop hy testi ng. Claudia Med 23, 0955 (2020 ). [Adde ndum to PMID: 63275 580] Prior TW, Bella ME, Anni Schneider. Spina l Muscu lar Atrop hy. 1999Sep 29 (Upda mercy 2019Aug 04). In: Yinka MP, Araceli jasso HH, Red RA, et al., chandu aguillon. GeneR maria victoria molina(R) [Inte rnet] . PMID: 71586 526 Not Available [facility] ([facility]) [address] [facility], [place], [address], 05/26/2025 20:10:45 05/18/2005/22/2025 SPINA L MUSCU LAR ATROP HY (SMA) director review/relea se COMMEN T [place] nent Type Perfo rmed At Nobl atorSokikom Dire tor Techn ical Esote pedro Claudia sandra Strickland, PhD, compo nent, Nobl atori [facility], [facility] proce ssing [address] , [facility] [place], [place], [address] Techn ical Esote pedro Claudia sandra Strickland, PhD, compo nent, [employer], [facility] re sis [address] , [facility] [place], [place], [address] Profe ssion al Esote pedro Claudia sandra Strickland, PhD, compo nent [employer], [facility] [address] [place], [address] [facility] lynnette valles relea sed by Amrik Hua , PhD, [facility] Not Available [facility] ([facility]) [address] [facility], [place], [address], 05/26/2025 20:10:45 05/18/20 25 05/22/2025 SPINA L MUSCU LAR ATROP HY ([facility]) pdf . Not Available [facility] ([facility]) [address] [facility], [place], [address], 05/26/2025 20:10:45 05/18/20 25 05/20/2025 RESUL T result 1 Commen t Mixed uroge nital demarco 50,00 0-100 ,000 colon y formi ng units per mL Not Available [facility] ([facility]) [address] [facility], [place], [address], 05/26/2025 20:10:46 05/18/20 25 05/18/2025 pregn juan manuel test, urine HCG positi [...] 05/18/2005/18/2025 urina lysis , dipst ick Specific Ramah 1.025 Not Available In-Off ice Order Internal Use Only DO Not Attach Compendium DO Not Attach Compendium, Do Not Delete/merge, 05/18/2025 11:37:14 05/18/20 25 05/18/2025 urina lysis , dipst ick Ketone Negati ve Not Available In-Office Order Internal Use Only DO Not Attach Compendium DO Not Attach Compendium, Do Not Delete/merge, [id number] 05/18/2025 11:37:14 05/18/20 25 05/18/2025 urina lysis , dipst ick Bilirubin Negati ve Not Available In-Office Order Internal Use Only DO Not Attach Compendium DO Not Attach Compendium, Do Not Delete/merge, [id number] 05/18/2025 11:37:14 05/18/20 25 05/18/2025 urina lysis , dipst ick Glucose Negati ve Not Available In-Office Order Internal Use Only DO Not Attach Compendium DO Not Attach Compendium, Do Not Delete/merge, [id number] 05/18/2025 11:37:14 05/19/20 25 05/19/2025 edinb urgh postn atal depre ssion scale * Score 12 Not Available In-Office Order Internal Use Only DO Not Attach Compendium DO Not Attach Compendium, Do Not Delete/merge, [id number] 05/19/2025 16:22:32 06/15/2006/19/2025 MATER NIT21 PLUS CORE gestation SINGLE TON Not Available [facility] ([facility]) [address] [place], [address], 06/19/2025 16:20:07 06/15/20 25 06/19/2025 MATER NIT21 PLUS CORE fraction 21% Not Available [facility] ([facility]) [address] [place], [address], 06/19/2025 16:20:07 06/15/20 25 06/19/2025 MATER NIT21 PLUS CORE gestational age > or = 9W: YES Not Available [facility] ([facility]) [address] [place], [address], 06/19/2025 16:20:07 06/15/20 25 06/19/2025 MATER NIT21 PLUS CORE test result NEGATI VE Not Available [facility] ([facility]) [address] [place], [address], 06/19/2025 16:20:07 06/15/20 25 06/19/2025 MATER NIT21 PLUS CORE laborer/grade check comments FARIBA Merino speci men showe d an expec mercy repre senta tion of chrom osome 21, 18 and 13 mater ial. Clini [place] corre latio n is sugge sted. Not Available [facility] ([facility]) [address] [facility], [place], [address], 06/19/2025 16:20:07 06/15/20 25 06/19/2025 MATER NIT21 PLUS CORE approved by FARIBA fournier MD, PhD, [facility] tor, Seque nom Labor atori es Not Available [facility] ([facility]) [address] [place], [address], 06/19/2025 16:20:07 06/15/20 25 06/19/2025 MATER NIT21 PLUS CORE trisomy 21 (down syndrome) NEGATI VE Not Available [facility] ([facility]) [address] [facility], [place], [address], 06/19/2025 16:20:07 06/15/20 25 06/19/2025 MATER NIT21 PLUS CORE trisomy 18 (correa syndrome) NEGATI VE Not Available [facility] ([facility]) [address] [place], [address], 06/19/2025 16:20:07 06/15/20 25 06/19/2025 MATER NIT21 PLUS CORE trisomy 13 (patau syndrome) NEGATI VE Not Available [facility] ([facility]) [address] [place], [address], 06/19/2025 16:20:07 06/15/20 25 06/19/2025 MATER NIT21 PLUS CORE sex FARIBA Bello Consi stent with Male Not Available [facility] ([facility]) [address] [facility], [place], [address], 06/19/2025 16:20:07 06/15/20 25 06/19/2025 MATER NIT21 PLUS CORE negative predictive value NOTE The Negat shagufta Predi ctive Value (NPV) for triso my 21, 18, and 13 is great er than 99%. The NPV for SCA and ESS canno t be calcu lated as SCA and ESS are only repor mercy when an abnor malit y is detec mercy. Not Available [facility] ([facility]) [address] [facility], [place], [address], 06/19/2025 16:20:07 06/15/20 25 06/19/2025 MATER NIT21 PLUS CORE positive predictive value N/A Not Available [facility] ([facility]) [address] [facility], [place], [address], 06/19/2025 16:20:07 06/15/20 25 06/19/2025 MATER NIT21 [...] yet been valid ated. Not Available [facility] ([facility]) [address] [facility], [place], [address], 06/19/2025 16:20:07 06/15/20 25 06/19/2025 MATER NIT21 PLUS CORE test method COMMEN T Circu latin g cell- free DNA was purif ied from the plasm a compo nent of mater nal blood . The extra cted DNA was then conve rted into a [employer] DNA gonsalo ry for aneup loidy re [...] s 16 and 22. Not Available [facility] ([facility]) [address] [facility], [place], [address], 06/19/2025 16:20:07 06/15/20 25 06/19/2025 MATER NIT21 PLUS CORE performance COMMEN T The perfo rmanc e wolfgang cteri stics of the Mater niT(R ) 21 PLUS labor atory -deve loped test (LDT) have been deter mined in a clini [place] valid ation study with pregn ant women at incre ased risk for chrom osoma l aneup loidy .[1-4 ] Not Available [facility] ([facility]) [address] [facility], [place], [address], 06/19/2025 16:20:07 06/15/20 25 06/19/2025 MATER NIT21 PLUS CORE performance characterist ics NOTE ----- ----- ----- ----- ----- ----- ----- ----- ----- ----- ----- ---- ! Sex ! Accur acy: 99.4% ! !---- ----- ----- ----- ----- ----- ----- ----- ----- ----- ----- ---! ! Regio n (ericksono stefanyte d syndr ome) ! Est. Sens# ! [...] ----- ----- ----- ---! ! Dakotao my 13 (Pata u Syndr ome) ! 91.7% ! 99.7% ! !---- ----- ----- ----- ----- ----- ----- ----- ----- ----- ----- ---! ! Sex Chrom osome Aneup lanette es## ! 96.2% ! 99.7% ! !---- ----- ----- ----- ----- ----- ----- ----- ----- ----- ----- ---! * As melvin madrid in ISCA datab ase nstd3 7 [http s://topher gill.regina bi.nl .nih .gov/ dbvar /stud ies/n std37 / ] [...] eton gesta tion only. Not Available [facility] ([facility]) [address] [facility] [address], [place], [address], 06/19/2025 16:20:07 06/15/20 25 06/19/2025 MATER NIT21 [...] and Fragm in(R) ). Not Available [facility] ([facility]) [address] [facility] [address], [place], [address], 06/19/2025 16:20:07 06/15/20 25 06/19/2025 MATER NIT21 PLUS CORE note FARIBA Bello [employer] [place]. is a subsi diary of Labor atory Corpo ratio n of [employer] estelle Holdi ngs, using the brand Octonotco. This test was devel oped and its perfo rmanc e wolfgang cteri stics deter mined by [employer]. It has not been clear ed or appro ifeanyi by the Food and Drug Admin istra tion. This labor atory is certi fied under the Clini orville Labor atory Impro vemen t Amend ments (CLIA ) as quali fied to perfo rm high compl exity clini orville labor atory testi ng and accre dited by the Yamilet thomason of [employer] can Patho logis ts (CAP) . If there is futur e clini orville need for addin g Mater niT GENOM E testi ng, this speci men will be avail able until term. [facility] sampl es will not be retai salome beyon d 60 days. [facility] patie nts will have to send a new sampl e for re-se quenc ing ([facility] Test Code: 86889 4). Not Available [facility] ([facility]) [address] [facility] [address], [place], [address], 06/19/2025 16:20:07 06/15/20 25 06/19/2025 MATER NIT21 PLUS CORE references FARIBA T 1. Anuel THOMASON, et al. Claudia Med. 2012; 14(3) :296- 305. 2. Elke SCHAFER, et al. Prena t Diag. 2013; 33(6) :591- 597. 3. Conro C, et al. Clin Chem. 2015 Nov;6 1(4): 608-6 16. 4. Anuel THOMASON, et al. Claudia Med. 2011; 13(11 ):913 -920. 5. ACOG/ SMFM Pract ice Bulle tin No. 226, May 2020. Not Available [facility] ([facility]) [address] [facility] [address], [place], [address], 06/19/2025 16:20:07 06/15/2006/19/2025 MATER NIT21 PLUS CORE pdf . Not Available [facility] ([facility]) [address] [facility] [address], [place], [address], 06/19/2025 16:20:07 06/15/2006/15/2025 urina lysis , dipst [...] DO Not Attach Compendium, Do Not Delete/merge, [id number] 06/15/2025 11:55:16 06/15/2006/15/2025 urina lysis , dipst ick Specific Ramah 1.030 Not Available In-Off ice Order Internal Use Only DO Not Attach Compendium DO Not Attach Compendium, Do Not Delete/merge, [id number] 06/15/2025 11:55:16 06/15/2006/15/2025 urina lysis , dipst ick Ketone Negati ve Not Available In-Office Order Internal Use Only DO Not Attach Compendium DO Not Attach Compendium, Do Not Delete/merge, [id number] 06/15/2025 11:55:16 06/15/2006/15/2025 urina lysis , dipst ick Bilirubin Negati ve Not Available In-Office Order Internal Use Only DO Not Attach Compendium DO Not Attach Compendium, Do Not Delete/merge, [id number] 06/15/2025 11:55:16 06/15/2006/15/2025 urina lysis , dipst ick Glucose Negati ve Not Available In-Office Order Internal Use Only DO Not Attach Compendium DO Not Attach Compendium, Do Not Delete/merge, [id number] 06/15/2025 11:55:16 07/20/2007/20/2025 AFP, SERUM , OPEN SPINA BIFID A comment: FARIBA jalloh , Ph.D. , [facility] Refer ences : Avail able Upon Reque st. Multi ples Of Media n Cutof fs For AFP [place] tions Singl eton 2.5 Black 2.8 IDD 2.0 Twins 4.5 Abbre viati on Defin ition s IDD - Insul in Dep Diabe ida OSBR - Open Spina Bifid a Risk For furth er inqui sharonda conta ct [facility] Claudia ics Servi jabari at [phone] [phone]. This test was devel oped and its perfo rmanc e wolfgang cteri stics deter mined by [facility]. It has not been clear ed or appro ifeanyi by the Food and Drug Admin istra tion. Not Available [facility] ([facility]) [address] [facility] [address], [place], [address], 07/22/2025 03:10:47 07/20/20 25 07/21/2025 AFP, SERUM , OPEN SPINA BIFID A results REPORT Not Available [facility] ([facility]) [address] [facility] [address], [place], [address], 07/22/2025 03:10:47 07/20/20 25 07/21/2025 AFP, SERUM , OPEN SPINA BIFID A test results: *SCREE N NEGATI VE* Not Available [facility] ([facility]) [address] [facility] [address], [place], [address], 07/22/2025 03:10:47 07/20/20 25 07/21/2025 AFP, SERUM , OPEN SPINA BIFID A gest. age on collection date 17.6 weeks Not Available [facility] ([facility]) [address] [facility] [address], [place], [address], 07/22/2025 03:10:47 07/20/20 25 07/21/2025 AFP, SERUM , OPEN SPINA BIFID A gestat. age based on GABE 12/24 Recal culat ions are not recom sulaiman d when gesta alexis l datin g by LMP and ultra sound are withi n 10 days. Not Available [facility] ([facility]) [address] [facility] [address], [place], [address], 07/22/2025 03:10:47 07/20/20 25 07/21/2025 AFP, SERUM , OPEN SPINA BIFID [age] Not Available [facility] ([facility]) [address] [place], [address], 07/22/2025 03:10:47 07/20/20 25 07/21/2025 AFP, SERUM , OPEN SPINA BIFID A race BLACK Not Available [facility] ([facility]) [address] [place], [address], 07/22/2025 03:10:47 07/20/20 25 07/21/2025 AFP, SERUM , OPEN SPINA BIFID A weight 142 lbs Not Available [facility] ([facility]) [address] [place], [address], 07/22/2025 03:10:47 07/20/20 25 07/21/2025 AFP, SERUM , OPEN SPINA BIFID A insulin dep diabetes NO Not Available [facility] ([facility]) [address] [place], [address], 07/22/2025 03:10:47 07/20/20 25 07/21/2025 AFP, SERUM , OPEN SPINA BIFID A multiple gestation NO Not Available [facility] ([facility]) [address] [place], [address], 07/22/2025 03:10:47 07/20/20 25 07/21/2025 AFP, SERUM , OPEN SPINA BIFID A AFP value 60.0 NG/mL Not Available [facility] ([facility]) [address] [place], [address], 07/22/2025 03:10:47 07/20/20 25 07/21/2025 AFP, SERUM , OPEN SPINA BIFID A AFP MOM 1.30 Not Available [facility] ([facility]) [address] [place], [address], 07/22/2025 03:10:47 07/20/20 25 07/21/2025 AFP, SERUM , OPEN SPINA BIFID A OSBR risk 1 in 9606 Not Available [facility] ([facility]) [address] [place], [address], 07/22/2025 03:10:47 07/20/20 25 07/21/2025 AFP, SERUM [...] 35 and older . Not Available [facility] ([facility]) [address] [place], [address], 07/22/2025 03:10:47 07/20/20 25 07/21/2025 AFP, SERUM , OPEN SPINA BIFID A pdf . Not Available [facility] ([facility]) [address] [place], [address], 07/22/2025 03:10:47 07/20/20 25 07/21/2025 CT, NG, TRICH VAG BY ROZ chlamydia by ROZ POSITI VE negati ve abnormal Not Available [facility] ([facility]) [address] [place], [address], 07/22/2025 03:10:58 07/20/20 25 07/21/2025 CT, NG, TRICH VAG BY ROZ gonococcus by ROZ NEGATI VE negati ve Not Available [facility] ([facility]) [address] [place], [address], 07/22/2025 03:10:58 07/20/20 25 07/21/2025 CT, NG, TRICH VAG BY ROZ trich vag by ROZ NEGATI VE negati ve Not Available [facility] ([facility]) [address] [place], [address], 07/22/2025 03:10:58 07/20/20 25 07/21/2025 VARIC AALIYAH- [...] not been acqui red. Not Available [facility] ([facility]) [address] [facility] [address], [place], [address], 07/22/2025 03:10:58 07/20/20 25 07/20/2025 urina lysis , dipst ick Leukocytes Negati ve Not Available In-Office Order Internal Use Only DO Not Attach Compendium DO Not Attach Compendium, Do Not Delete/merge, [id number] 07/20/2025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
--- OUTSIDE RECORDS SUMMARY | 2025-07-25 14:53 | XMS_ITS | Data Portability ---
Author Organization [facility] , [facility] Address [address] [place] [address] Care Team Providers Care Plumbing Designer Name Role Phone [facility] Potato Chip Processing Supervisor Assessment No assessment recorded. Plan of Treatment Reminders Order Date Submit Date Provider Last Modified By Organization Details Last Modified Time Details Appointments OB SONOGRA M 30 2025 08:15A M Ultrasound [place] [address] Not available Not available Not available OB 1ST VISIT EST 2025 08:45A M HALLEY WALL, PSYCH NURSE Not available Not available Not available Lab pregnan cy test, urine 2023 024 [email or web address] [facility], [address] [place], [address], 12/27/2023 15:10:29 Referral None recorde d. Procedures None recorde d. Surgeries None recorde d. Imaging US, transva ginal 2023 024 STARR Not available 12/29/2023 05:23:37 Medication Orders None recorde d. Patient TargetsNo targets recorded. Patient Instructions Encounter Date Encounter Id Patient Instructions Last Modified By Organization Details Last Modified Time 12/27/2023 [id number] Emergency Symptoms During the First Trimester Any [...] 100.4 or more degrees Fahrenheit and/or chills [id number] Not available 12/27/2023 15:16:43 Reason for Referral None Reported. Results Created Date Observation Date Name Description Value Unit Range Abnormal Flag Note LastModifiedBy Organization Detail LastModifiedTime 12/27/19 24 12/27/2023 pregn rachel test, urine HCG positi ve Not Available [facility] [address] [place], [address], 12/27/2023 10:04:51 12/29/19 24 12/27/2023 US, trans vagin al No observ ation record ed. [email or web address] [place] [address], [place], [address], 12/29/2023 11:14:14 Result Notes None recorded. Medical [...] kg/m2 75 % 172.72 cm Luciekatelyn Hunty [facility] IV 12/27/2023 15:01:00 Date Recorded Body weight Body temperature Systolic And Diastolic Provider Name and Address Organization Details Last Updated DateTime 12/27/2023 26182.25 g 98.4 [degF] 130/62 mm[Hg] Mckenna Yangbe [facility] 12/27/2023 14:42:17 Social History Question Answer Notes LastModified by Organizat ion Details LastModified Time Tobacco Smoking Status Never Smoker Mckenna Weber brian, [facility] 12/27/2023 14:45:18 If You Are , What [...] ICD10 Code Diagnosis IMO Codes Diagnosis Note [id number] Giulia Alcocer CNM [facility] [address] [place] [address] 12/27/2023 14:31:23 12/27/2023 15:29:03 detection examination [id number] Z32.00 US findings discussed w/pt and SO. [...] Member ID Arana Member ID Guarantor Name 07/23/2025 1 [place] [facility] Janak Michele [id number] Janak Michele Notes Date Note Type Note Provider Name and Address Organization Details Recorded Time 12/27/2023 text/html Janak is here for confirmation with u/spatient LMP 4Patient states she is taking prenantal vitaminspatient has no concerns at this time Giulia Alcocer, CECILIA [address] [place], [address], [facility] 12/27/2023 15:17:25 OBGyn Episode Ob Episode Information Episode Created Date Number of Fetuses Patient Bloodtype Patient rh Status Prepregnancy Weight lbs Domestic Partner Domestic Partner Phone Father Name Manager Product Support Status 12/27/19 24 1 CLOSED Fetus Data [...]
[2025-07-25 14:55] LABS: Acetaminophen < 10 ug/mL (10-30); Salicylate < 1.0 mg/dL (2-20)
[2025-07-25 14:56] LABS: Alanine Aminotransferase 33 U/L (6-35); Albumin Level 4.7 g/dL (3.5-5.1); Alkaline Phosphatase 99 U/L (38-126); Anion Gap 10 mmol/L (4-12); Aspartate Amino Transferase 39 U/L (14-36); Bilirubin,Total 0.8 mg/dL (0.2-1.3); Blood Urea Nitrogen 6 mg/dL (7-17); Calcium 9.9 mg/dL (8.4-10.2); Carbon Dioxide 22 mmol/L (22-30); Chloride 106 mmol/L (98-107); Estimated CRCL calculation 125 ml/min; Estimated Glomerular Filt Rate > 60; Glucose 79 mg/dL (65-110); Potassium 3.5 mmol/L (3.4-5.0); Sodium 138 mmol/L (137-145); Total Protein 9.4 g/dL (6.3-8.2)
--- NOTE | 2025-07-25 15:00 | ED.PSYCH ---
HPI - Psych General Chief Complaint: Psychiatric Symptoms Stated Complaint: SI, 5 mo Time Seen by Provider: 07/25/25 14:06 Source: patient Mode of arrival: ambulatory Limitations: no limitations History of Present Illness HPI Narrative: This is a 20 year old female that presents to the ER for suicidal ideations. She is currently 5 months . Reports history of depression for which she is not currently treated. Reports history of self harm and psychiatric hospitalization. She has had some care this . Related Data Home Medications ?Medication ?Instructions ?Recorded ?Confirmed ?Last Taken ?Type vits no.126-ferrous fum tablet PO 01/01/24 01/01/24 Unknown History 28 mg iron-folic acid 800 mcg tablet (Classic ) Allergies Allergy/AdvReac Type Severity Reaction Status Date / Time No Known Allergies Allergy Mild Verified 07/25/25 13:55 Review of Systems Review of Systems: All systems reviewed & are unremarkable except as noted in HPI and below PMFSH Past Medical History Medical History Chronic otitis media Threatened Surgical History Surgical History No history of previous surgery Family History Family History Other No significant family history Social History Social History Smoking status: Never smoker Second hand tobacco smoke exposure: No Alcohol intake: never Substance use: never Substance use type: does not use Lack of Transportation: No Lack of Food: Often True Current Housing: I Have Housing Concerned About Future Housing: YES Difficulty Paying Gas/Electric Bills: YES Difficulty Paying for Meds: No Currently Unemployed: No Education: High School Diploma/GED Difficulty w/ Childcare or Family Care: No Living arrangements: with family Additional living arrangements comments: lives with boyfriend and mother 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 HEAD: Normocephalic, atraumatic. EYES: EOMI. CHEST: Clear to auscultation. No respiratory distress. No wheezes rales or rhonchi HEART: Regular rate and rhythm. No murmur heard. Normal peripheral pulses. ABDOMEN: Gravid, nontender, normal active bowel sounds. EXTREMITIES: Normal range of motion. No edema. SKIN: Warm, dry, no rash. NEURO: No focal deficits. Alert and oriented x3. PSYCH: Flat mood and affect Course Course Emergency Course: Patient was evaluated by crisis and safety plan in place. She has no intentions on acting on her thoughts. Has good support system. Is interested in seeking counseling. She will get follow up calls. Patient and family are in agreement with plan Vital Signs Vital signs: Vital Signs Temperature 97.6 F 07/25/25 13:19 Pulse Rate 110 H 07/25/25 13:19 Respiratory Rate 20 07/25/25 13:19 Blood Pressure 110/71 07/25/25 13:19 Pulse Oximetry 100 07/25/25 13:19 Oxygen Delivery Room Air 07/25/25 13:19 Temperature 97.6 F 07/25/25 13:19 Pulse Rate 110 H 07/25/25 13:19 Respiratory Rate 20 07/25/25 13:19 Blood Pressure 110/71 07/25/25 13:19 Pulse Oximetry 100 07/25/25 13:19 Oxygen Delivery Room Air 07/25/25 13:19 [facility] Narrative Medical decision making narrative: Patient presents the emergency department for passive suicidal ideations. She does not have a plan. She has no intention on acting on her thoughts. Patient is currently 18 weeks . No other concerns at this time. She does have history of depression. She is not currently on medication for this. No concerning findings on laboratory evaluation. She did test positive for cannabinoids. Obstetric ultrasound shows single living fetus with gestational age of 18 weeks and 3 days. Patient was evaluated by crisis and safety plan in place. She has no intentions on acting on her thoughts. Has good support system. Is interested in seeking counseling. She will get follow up calls. Patient and family are in agreement with plan Differential Diagnosis Differential Diagnosis: suicidal ideation, depression Lab Data [facility] Lab Attestation statement: I personally reviewed the patient's lab results. 07/25/25 14:33 07/25/25 14:33 Labs: Lab Results 07/25/25 07/25/25 Range/Units 13:57 14:33 WBC 8.1 (4.5-10.0) K/mm3 RBC 4.82 (4.2-5.4) M/mm3 Hgb 13.6 (12.0-15.0) g/dL Hct 40.1 (37.0-47.0) % MCV 83.2 (80-100) fl MCH 28.2 (26-34) pg MCHC 33.9 (32-36) g/dl RDW 13.3 (11.5-14.5) % Plt Count 328 (150-375) k/mm3 MPV 9.4 (7.4-10.4) fl Immature Gran % (Auto) 0.4 (0-0.5) % Neut % (Auto) 86.9 H (45.5-73.1) % Lymph % (Auto) 8.7 L (18.3-44.2) % Kerr % (Auto) 3.6 (2.6-8.5) % Eos % (Auto) 0.2 (0-4.4) % Baso % (Auto) 0.2 (0.2-1.2) % Lymph # (Auto) 0.71 L (0.9-3.2) K/mm3 Kerr # (Auto) 0.3 (0.1-0.6) K/mm3 Eos # (Auto) 0.0 (0-0.3) K/mm3 Baso # (Auto) 0.0 (0.0-0.1) K/mm3 Abs Immat Gran (auto) 0.03 (0.00-0.031) K/mm3 Absolute Neuts (auto) 7.1 H (1.3-6.7) K/mm3 Absolute Nucleated RBC 0.000 (0.0-0.012) K/mm3 Nucleated RBC % 0.0 (0.0-0.2) % Sodium 138 (137-145) mmol/L Potassium 3.5 (3.4-5.0) mmol/L Chloride 106 (98-107) mmol/L Carbon Dioxide 22 (22-30) mmol/L Anion Gap 10 (4-12) mmol/L BUN 6 L (7-17) mg/dL Creatinine 0.59 L (0.7-1.0) mg/dL Estim Creat Clear Calc 125 ml/min Estimated GFR > 60 (59 - ) Glucose 79 (65-110) mg/dL Calcium 9.9 (8.4-10.2) mg/dL Total Bilirubin 0.8 (0.2-1.3) mg/dL AST 39 H (14-36) U/L ALT 33 (6-35) U/L Alkaline Phosphatase 99 (38-126) U/L Total Protein 9.4 H (6.3-8.2) g/dL Albumin 4.7 (3.5-5.1) g/dL TSH 0.856 (0.465-4.680) uIU/mL Urine Color Dark yellow (Yellow) Urine Appearance Cloudy H (Clear) Urine pH 5.5 (5.0-9.0) Ur Specific [place] 1.023 (1.001-1.035) Urine Protein 2+ H (Negative) mg/dL Urine Glucose (UA) Negative (Negative) mg/dL Urine Ketones 1+ H (Negative) mg/dL Ur Blood (Man) 1+ H (Negative) Urine Nitrate Negative (Negative) Urine Bilirubin 1+ H (Negative) Urine Urobilinogen 1.0 (<2.0) mg/dL Add Ur Microanalysis Reviewed Leukocyte Esterase Rfl Trace H (Negative) MAE/UL Urine RBC 3-5 H (0-2) /hpf Urine WBC 0-5 (0-3) /hpf Ur Squamous Epith Cells Moderate (Few) /hpf Urine Bacteria None seen /hpf Urine Casts 6-10 Urine Mucus Present /lpf Salicylates < 1.0 L (2-20) mg/dL Urine Opiates Screen Negative (Negative) Urine Methadone Screen Negative (Negative) Acetaminophen < 10 L (10-30) ug/mL Ur Barbiturates Screen Negative (Negative) Ur Phencyclidine Scrn Negative (Negative) Ur Amphetamine Screen Negative (Negative) U Benzodiazepines Scrn Negative (Negative) Urine Cocaine Screen Negative (Negative) U Cannabinoids Screen Positive A (Negative) Ethyl Alcohol < 10 (<10) mg/dL SARS-CoV-2 RNA (RT-PCR) Negative (Negative) Imaging Data Radiologist's impression: ITS Impressions Obstetrics Ultrasound 07/25/25 15:41 IMPRESSION: 1. Single live fetus as mentioned above. Gestational age 18 weeks and 3 days +/- 10 days. Expected due date by ultrasound on 12/23/2025. 2. As mentioned above, this is a limited study. This is not for anatomic evaluation of fetus. ECG Data EKG #1: ECG completion date: 07/25/25 normal rate, sinus rhythm, no ST changes and normal QT Critical Care Time Critical Care Time Critical Care Time: No Discharge Plan Discharge Clinical Impression: Suicidal thoughts Patient Disposition: Home Condition: Stable Instructions: Depression (ED), Suicide Prevention (ED) Additional Instructions: Return to the emergency department if you experience fever, chest pain, shortness of breath, abdominal pain with nausea and vomiting, vaginal bleeding, thoughts of harming yourself or anyone else, or any other symptoms that are concerning to you. Follow up with resources provided by crisis and your OB Patient Language: East Timorese Prescriptions: No Action Classic 28 mg iron- 800 mcg tablet PO Follow-up/Referrals: PHYSICIAN,EXCHANGE ADMINISTRATOR [Primary Care Provider, Internal Medicine]
[2025-07-25 15:31] LABS: Thyroid Stimulating Hormone 0.856 uIU/mL (0.465-4.680)
[2025-07-25 18:45] VITALS: BP 99/62; PULSE 94; RESP 18; O2SAT 100
== END 2025-07-25 18:38 | disposition home or self-care (01) ==
PROVIDERS: Emergency Medicine; Emergency Provider Physician Assistant
DX: O99.891 Other specified diseases and conditions complicating pregnancy (principal); R45.851 Suicidal ideations; O99.322 Drug use complicating pregnancy, second trimester; F12.90 Cannabis use, unspecified, uncomplicated; Z11.52 Encounter for screening for COVID-19; Z3A.18 18 weeks gestation of pregnancy; I45.10 Unspecified right bundle-branch block; R94.31 Abnormal electrocardiogram [ECG] [EKG]
CPT/HCPCS: 36415; 76816; 80053; 80143; 80179; 80307; 81001; 82077; 84443; 85025; 87635; 93005; 99284